=== PATIENT | female | born 1940 | race Caucasian/White ===

== ENCOUNTER 2019-06-24 15:41 | Outpatient (CLI) | payer OTHER, SELFPAY ==
--- NOTE | ~2019-06-24 | XR_ITS ---
EXAMINATION: XR hand BI arthritis min 3V INDICATION: Joint pain and bilateral osteoarthritis TECHNIQUE: Three views of each hand and ball-catcher's view of both hands are obtained. COMPARISON: None available FINDINGS: Right hand: There is advanced osteoarthritis of the interphalangeal joints of the first through third fingers, and the fourth and fifth proximal interphalangeal joints. There is moderate osteoarthritis of the fourth and fifth distal interphalangeal joints. There is moderate osteoarthritis of the first and third metacarpophalangeal joints and mild osteoarthritis of the second, fourth, and fifth metacar pophalangeal joints. Moderate osteoarthritis is noted at the triscaphe joint. There is no fracture. S oft tissues are unremarkable. Left hand: There is advanced osteoarthritis of the interphalangeal joints of the first through fourth fingers and the fifth proximal interphalangeal joint. There is moderate osteoarthritis of the fifth distal interphalangeal joint. There is moderate osteoarthritis of the fifth metacarpal phalangeal isaac nt and mild osteoarthritis of the first through fourth metacarpophalangeal joints. Moderate osteoarth ritis is noted at the triscaphe joint. There is no fracture. The soft tissues are unremarkable. IMPRESSION: 1. Polyarticular osteoarthritis as detailed above. Reviewed, dictated and finalized at location A.
== END 2019-06-24 15:42 | disposition home or self-care (01) ==
PROVIDERS: PCP Internal Medicine; Visit Provider Plastic Surgery
DX: M19.041 Primary osteoarthritis, right hand (principal); M19.042 Primary osteoarthritis, left hand
CPT/HCPCS: 73130

== ENCOUNTER 2019-06-25 14:36 | Emergency (ER) | payer OTHER, SELFPAY ==
--- NOTE | ~2019-06-25 | XR_ITS ---
XR chest 2V DATE: 06/25/2019 15:33 INDICATION: Midsternal chest pain, shortness of breath. History of acid reflux. TECHNIQUE: PA and lateral views COMPARISON: 07/14/2018 PA and lateral chest FINDINGS: Normal heart size. There is aortic calcification and unfolding. No hilar or mediastinal enl argement. No pulmonary infiltrate or consolidation, pleural effusion or pulmonary vascular congestion or pneumo thorax. Included skeletal structures are unremarkable. IMPRESSION: No active cardiopulmonary disease Aortic atherosclerosis Reviewed, dictated and finalized at location B.
--- NOTE | ~2019-06-25 | CT_ITS ---
EXAMINATION: CT abdomen pelvis w con DATE: 06/25/2019 15:58 INDICATION: Epigastric pain TECHNIQUE: Computed tomography (CT) of the abdomen and pelvis was performed with 100 mL Omnipaque-350 intravenous contrast. Automated exposure control and iterative reconstruction technique were employe d. The dose-length product was 597.75 mGy-cm. COMPARISON: None FINDINGS: Mild dependent atelectasis in the lower lungs. Heart size is normal. No pericardial or pleural effusi on. Small sliding-type hiatal hernia. 1.5 cm cyst in the left hepatic lobe. Gallbladder, pancreas, bi lateral adrenal glands and kidneys are normal. 7 mm low-attenuation splenic lesion most likely either hemangioma or splenic cyst. Splenic calcific lesions consistent with old granulomatous disease. Ther e are few scattered colonic diverticula without adjacent inflammatory change to suggest diverticuliti s. No bowel obstruction. The appendix is not visualized. No pericecal inflammatory change to suggest acute appendicitis. Bladder is normal. The uterus is not identified and has likely been surgically re sected. There is calcified atherosclerosis of the aorta and many of the other arteries. No pathologic ally enlarged abdominal or pelvic lymphadenopathy. Moderate thoracolumbar spondylosis. IMPRESSION: 1. No acute intra-abdominal/pelvic process. 2. Small sliding-type hiatal hernia. Reviewed, dictated and finalized at location A.
[2019-06-25 14:52] VITALS: BP 171/92; PULSE 58; RESP 11; TEMP 36.6; O2SAT 99
--- NOTE | 2019-06-25 14:59 | ECG_ITS ---
Measurements Intervals [place] Rate: 58 P: 57 AK: 168 QRS: 26 QRSD: 90 T: 45 QT: 440 QTc: 436 Interpretive Statements SINUS BRADYCARDIA MINIMAL Q WAVES- ANTEROLATERAL LEADS INFERIOR INFARCT, AGE INDETERMINATE ABNORMAL ECG Electronically Signed On 06-25-2019 15:09:09 CDT by Neal Álvarez D.O.
[2019-06-25 15:15] LABS: Basophils Absolute Auto 0.1 K/mm3 (0.0-0.1); Basophils Percent Auto 0.7 % (0.2-1.2); Eosinophils Absolute Auto 0.3 K/mm3 (0-0.3); Eosinophils Percent Auto 3.6 % (0-4.4); Hematocrit 43.4 % (37.0-47.0); Hemoglobin 14.4 g/dL (12.0-15.0); Immature Granulocyte Absolute 0.02 K/mm3 (0.00-0.031); Immature Granulocyte Percent A 0.3 % (0-0.5); Lymphocytes Percent Auto 21.6 % (18.3-44.2); Mean Corpuscular HGB Conc 33.2 g/dl (32-36); Mean Corpuscular Hemoglobin 30.2 pg (26-34); Mean Platelet Volume 10.4 fl (7.4-10.4); Monocytes Absolute Auto 0.8 K/mm3 (0.1-0.6); Monocytes Percent Auto 10.8 % (2.6-8.5); Neutrophils Absolute Auto 4.4 K/mm3 (1.3-6.7); Platelet Count Result 287 k/mm3 (150-375); Red Blood Count 4.77 M/mm3 (4.2-5.4); Red Cell Distribution Width 12.9 % (11.5-14.5); White Blood Count 6.9 K/mm3 (4.5-10.0)
[2019-06-25 15:26] LABS: Blood Urea Nitrogen 17 mg/dL (7-17); Calcium 9.2 mg/dL (8.4-10.2); Carbon Dioxide 30 mmol/L (22-30); Chloride 100 mmol/L (98-107); Estimated CRCL calculation 60 ml/min; Estimated Glomerular Filt Rate > 60; Glucose 87 mg/dL (65-105); Potassium 3.5 mmol/L (3.4-5.0); Sodium 136 mmol/L (137-145)
--- NOTE | 2019-06-25 15:36 | ED.GENADULT ---
HPI - General Adult General Chief complaint: Shortness of Breath/Dyspnea Stated complaint: sob/abnormal ekg/indigestion Time Seen by Provider: 06/25/19 15:14 Source: patient Limitations: no limitations History of Present Illness HPI narrative: Patient presents with chief complaint of epigastric pain and feelings of reflux that began after eating earlier today. Patient reports her symptoms presented after eating. Patient reports a history of GERD. Patient states she went to [facility] where an EKG was performed and she told he has some abnormal findings so she was to go to the emergency department. Patient states she was given a GI cocktail which has helped her reflux overall. Patient states she still has epigastric pain. Patient denies feelings of shortness of breath or wheezing. Patient states she has not had any chest pain at this time either. Patient states her last episodes of pain in her chest that she felt was when she was sleeping and after turning over to lay on the opposite side the discomfort subsided. Patient states that when she had the reflux symptoms and it made her feel that she needed to take a deep breath she thought of the discussions on TV about the Covid virus and presented to be seen. Related Data Home Medications Medication Instructions Recorded Confirmed aspirin 81 mg tablet,delayed 81 mg PO DAILY 02/18/19 release bisoprolol fumarate 5 mg tablet 5 mg PO DAILY 02/18/19 naproxen 500 mg tablet 500 mg PO BID 06/18/19 Allergies Allergy/AdvReac Type Severity Reaction Status Date / Time loratadine [From Claritin] Allergy Unknown Unknown Verified 02/18/19 09:56 Review of Systems Review of Systems: Narrative: CONSTITUTIONAL: Denies fever, chills, or sweats. EYES: Denies visual changes, redness, or discharge. ENT: Reports acid reflux symptoms denies rhinorrhea, congestion, sore throat, or otalgia. CARDIOVASCULAR: Denies chest pain, palpitations, or edema. RESPIRATORY: Denies cough or dyspnea. GASTROINTESTINAL: Reports epigastric pain denies nausea, vomiting, or diarrhea. GENITOURINARY: Denies dysuria or hematuria. SKIN: Denies rash or itching. MUSCULOSKELETAL: Denies back pain, joint pain, or myalgia. NEUROLOGIC: Denies headache, numbness, dizziness, or weakness. PSYCHIATRIC: Denies anxiety or depression. [facility] Past Medical History Medical History (Updated 06/25/19 @ 16:34 by Angelique Joshi PA-C) Patellofemoral arthritis of right knee Surgical History Surgical History History of hysterectomy (~2001) Social History Social History Smoking status: Current every day smoker Smoking end date: 04/08/92 Alcohol intake: current Exam Narrative: Exam Narrative: GENERAL: Well-appearing, well-nourished, and in no acute distress. HEAD: Normocephalic, atraumatic. EYES: PERRLA and EOMI. ENT: Nares clear, no rhinorrhea or epistaxis. Mucous membranes moist. Oropharynx without tonsillar hypertrophy exudate or other lesions. Bilateral TMs pearly bloom nonbulging NECK: Supple. No adenopathy or masses. Range of motion intact. CHEST: Clear to auscultation. No respiratory distress. No tachypnea. No wheezes rales or rhonchi HEART: Regular rate and rhythm. No murmur heard. ABDOMEN: Soft, moderate epigastric tenderness, nondistended, normal active bowel sounds. EXTREMITIES: Normal range of motion. No edema. SKIN: Warm, dry, no rash. NEURO: No focal deficits. Alert and oriented x3. PSYCH: Normal mood and affect. Course Vital Signs Vital signs: Vital Signs Temperature 97.8 F 06/25/19 14:52 Pulse Rate 58 L 06/25/19 14:52 Respiratory Rate 11 L 06/25/19 14:52 Blood Pressure 171/92 H 06/25/19 14:52 Pulse Oximetry 99 06/25/19 14:52 Temperature 97.8 F 06/25/19 14:52 Pulse Rate 60 06/25/19 16:43 Respiratory Rate 16 06/25/19 16:43 Blood Pressure 150/98 H 03
[2019-06-25 15:43] VITALS: PULSE 53; O2SAT 99
--- NOTE | 2019-06-25 15:47 | PC.NURSE ---
Patient to radiology at this time.
[2019-06-25 16:07] LABS: Lipase 181 U/L (23-300)
[2019-06-25 16:20] LABS: Troponin I < 0.012 ng/mL (0.000-0.034)
[2019-06-25 16:43] VITALS: BP 150/98; PULSE 60; RESP 16; O2SAT 97
== END 2019-06-25 16:45 | disposition home or self-care (01) ==
PROVIDERS: Physician Assistant; Emergency Provider Emergency Medicine; PCP Internal Medicine
DX: K44.9 Diaphragmatic hernia without obstruction or gangrene (principal); Z87.891 Personal history of nicotine dependence; R00.1 Bradycardia, unspecified; R94.31 Abnormal electrocardiogram [ECG] [EKG]; I70.0 Atherosclerosis of aorta
CPT/HCPCS: 36415; 71046; 74177; 80048; 83690; 84484; 85025; 93005; 99284; Q9967

== ENCOUNTER 2019-07-28 13:04 | Outpatient (CLI) | payer OTHER, SELFPAY ==
[2019-07-28 13:35] LABS: Basophils Absolute Auto 0.1 K/mm3 (0.0-0.1); Basophils Percent Auto 0.9 % (0.2-1.2); Eosinophils Absolute Auto 0.3 K/mm3 (0-0.3); Eosinophils Percent Auto 4.5 % (0-4.4); Hematocrit 42.9 % (37.0-47.0); Hemoglobin 14.3 g/dL (12.0-15.0); Immature Granulocyte Absolute 0.03 K/mm3 (0.00-0.031); Immature Granulocyte Percent A 0.5 % (0-0.5); Lymphocytes Absolute Auto 1.52 K/mm3 (0.9-3.2); Lymphocytes Percent Auto 23.6 % (18.3-44.2); Mean Corpuscular HGB Conc 33.3 g/dl (32-36); Mean Corpuscular Hemoglobin 30.2 pg (26-34); Mean Corpuscular Volume 90.5 fl (80-100); Mean Platelet Volume 10.5 fl (7.4-10.4); Monocytes Absolute Auto 0.6 K/mm3 (0.1-0.6); Monocytes Percent Auto 9.5 % (2.6-8.5); Neutrophils Absolute Auto 3.9 K/mm3 (1.3-6.7); Platelet Count Result 283 k/mm3 (150-375); Red Blood Count 4.74 M/mm3 (4.2-5.4); Red Cell Distribution Width 12.4 % (11.5-14.5); White Blood Count 6.4 K/mm3 (4.5-10.0)
== END 2019-07-28 13:05 | disposition home or self-care (01) ==
PROVIDERS: PCP Internal Medicine; Visit Provider Internal Medicine
DX: I10 Essential (primary) hypertension (principal); E03.9 Hypothyroidism, unspecified
CPT/HCPCS: 36415; 84443; 85025

== ENCOUNTER 2019-08-11 15:57 | Emergency (ER) | payer OTHER, SELFPAY ==
--- NOTE | ~2019-08-11 | CT_ITS ---
EXAMINATION: CT brain wo con, CT cervical spine wo con EXAM DATE: 08/11/2019 16:35 (accession [id number]), 08/11/2019 16:36 (accession [id number]) INDICATION: Fall, head injury. TECHNIQUE: Spiral CT of the head was performed without contrast. Axial, coronal and sagittal images were reviewed. Spiral CT of the cervical spine was performed without contrast. Axial images were rev iewed. Coronal and sagittal reformatted images were also reviewed. The dose-length product (DLP) fo r this examination was 529.67 (accession [id number]), 246.89 (accession [id number]) mGy-cm. The exposure was tailored according to patient size, and iterative reconstruction (ASIR) was used as additional dose reduction technique. Comparison is made to prior examination from 07/23/2012. FINDINGS: HEAD CT: There is no acute intraparenchymal hemorrhage. No evidence of intraparenchymal brain mass l esion. No evidence of acute infarction. There is moderate periventricular and subcortical hypodensit y, nonspecific but probably related to small vessel ischemic disease. There is mild prominence of t he sulci and ventricles related to cerebral atrophy. There is intracranial carotid arteriosclerosis . There is no mass effect or midline shift. There is no obstructive hydrocephalus suspected. There are no extra-axial collections. There are no acute calvarial fractures. The orbits are unremarkabl e. There is swelling, hematoma in the left periorbital subcutaneous tissues, brow. The visualized si nuses and mastoid air cells are well aerated. CERVICAL CT: There is advanced cervical spondylosis. There is no evidence of acute cervical fracture. The odontoid process is intact. Pre-dens space is normal. Prevertebral soft tissue is normal. Th ere are no soft tissue abnormalities identified. There is no disc space widening or traumatic verteb ral body subluxation suspected. A detailed level by level evaluation of spondylosis can be added as addendum if requested. Some right apical scarring. IMPRESSION: 1. No acute intracranial or cervical findings. 2. Left periorbital brow scalp contusion/hematoma. Reviewed, dictated and finalized at location A. IMPRESSION: 1. No acute intracranial or cervical findings. 2. Left periorbital brow scalp contusion/hematoma.
--- NOTE | ~2019-08-11 | XR_ITS ---
EXAMINATION: XR chest 2V, XR sternum min 2V EXAM DATE: 08/11/2019 16:47 (accession [id number]), 08/11/2019 16:48 (accession [id number]) INDICATION: Initial encounter following injury, with pain of the anterior chest, sternum. Fall. TECHNIQUE: Frontal and lateral projections of the chest obtained and reviewed. Additional lateral, o blique projections of the sternum. Comparison is made to prior examination from 06/25/2019. FINDINGS: Shape of sternum appears unchanged compared to prior study, no evidence of acute fracture l ine. The lungs are clear. There are no pleural effusions. The cardiomediastinal silhouette is withi n normal limits. There is no pneumothorax suspected. The bones and soft tissues are unremarkable. IMPRESSION: No acute cardiopulmonary findings. Reviewed, dictated and finalized at location A. IMPRESSION: No acute cardiopulmonary findings.
--- NOTE | 2019-08-11 16:09 | ED.GENADULT ---
HPI - General Adult General Chief complaint: Fall Stated complaint: FALL Source: patient and EMS Mode of arrival: EMS Limitations: no limitations History of Present Illness HPI narrative: Patient is a 78-year-old female who presents to emergency department for evaluation of injuries related to a ground-level fall that occurred just prior to arrival patient was walking when she tripped falling forward striking the left side of the face where she now has a hematoma of the left brow. Patient also notes some mild discomfort to the bilateral shoulders and mid chest since the fall. Patient denies anticoagulant use. Patient has not had anything for pain presents per EMS in no distress. Patient denies other complaints and is resting comfortably in the room in no distress Related Data Home Medications Medication Instructions Recorded Confirmed aspirin 81 mg tablet,delayed 81 mg PO DAILY 02/18/19 release Allergies Allergy/AdvReac Type Severity Reaction Status Date / Time loratadine [From Claritin] Allergy Unknown Unknown Verified 08/11/19 17:00 Review of Systems Review of Systems: All systems reviewed & are unremarkable except as noted in HPI and below PMFSH Past Medical History Medical History Patellofemoral arthritis of right knee Surgical History Surgical History History of hysterectomy (~2001) Family History Family History Sibling Family history of chronic obstructive pulmonary disease Family history of heart disease in male family member before age 55 Mother Family history of congestive heart failure Father Family history of heart disease in male family member before age 55 Family history of alcoholism, Onset Age: 47 Other Family history of Alzheimer's disease Family history of cardiovascular disease Family history of lung cancer Social History Social History Smoking status: Current every day smoker Smoking end date: 04/08/92 Alcohol intake: current Gender identity (if verbalized by the patient): Female Exam Narrative: Exam Narrative: GENERAL: Well-appearing, well-nourished, and in no acute distress. HEAD: Normocephalic, hematoma over the left brow EYES: PERRLA and EOMI. ENT: Nares clear, no rhinorrhea or epistaxis. Mucous membranes moist. Oropharynx without tonsillar hypertrophy exudate or other lesions. NECK: Supple. No adenopathy or masses. CHEST: Clear to auscultation. No respiratory distress. No wheezes rales or rhonchi. Mild tenderness of the mid sternum and anterior chest HEART: Regular rate and rhythm. No murmur heard. Normal peripheral pulses. ABDOMEN: Soft, nontender, nondistended, EXTREMITIES: Normal range of motion. No edema. No midline cervical thoracic or lumbar tenderness SKIN: Warm, dry, no rash. NEURO: No focal deficits. Alert and oriented x3. Cranial nerves II through XII grossly intact. Neurovascularly intact PSYCH: Normal mood and affect. Course Course Emergency Course: Patient in the room at this time in no distress aware of case findings treatment plan and diagnosis agreeing to follow-up with primary care as directed in the room in no distress Vital Signs Vital signs: Vital Signs Temperature 98.0 F 08/11/19 16:22 Pulse Rate 58 L 08/11/19 16:22 Respiratory Rate 18 08/11/19 16:22 Blood Pressure 143/88 H 08/11/19 16:22 Pulse Oximetry 96 08/11/19 16:22 Temperature 97.6 F 08/11/19 16:54 Pulse Rate 63 08/11/19 16:54 Respiratory Rate 20 08/11/19 16:54 Blood Pressure 155/107 H 08/11/19 16:54 Pulse Oximetry 95 08/11/19 16:54 Medical Decision Making [facility] Narrative Medical decision making narrative: Patient in the room in no distress at this time no high risk changes in the imaging will b
[2019-08-11 16:22] VITALS: BP 143/88; PULSE 58; RESP 18; TEMP 36.7; O2SAT 96
[2019-08-11 16:54] VITALS: BP 155/107; PULSE 63; RESP 20; TEMP 36.4; O2SAT 95
[2019-08-11 18:21] VITALS: BP 131/98; PULSE 62; RESP 20; O2SAT 98
== END 2019-08-11 18:27 | disposition home or self-care (01) ==
PROVIDERS: Emergency Provider Emergency Medicine; PCP Internal Medicine
DX: S00.12XA Contusion of left eyelid and periocular area, initial encounter (principal); S20.219A Contusion of unspecified front wall of thorax, initial encounter; M17.11 Unilateral primary osteoarthritis, right knee; Z79.82 Long term (current) use of aspirin; W01.0XXA Fall on same level from slipping, tripping and stumbling without subsequent striking against object, initial encounter
CPT/HCPCS: 70450; 71046; 71120; 72125; 96365; 99284; J0131

== ENCOUNTER 2019-09-09 13:58 | Outpatient (CLI) | payer OTHER, SELFPAY ==
--- NOTE | 2019-09-09 19:04 | WPDSIXMINUTE ---
Six Minute Walk Six Minute Walk: DOS: 09/09/2019 REQUESTING: Dr. Ayush Hansen REASON FOR TESTING: shortness of breath SIX MINUTE WALK This test was performed per ATS guidelines. The test was performed on room air. The initial saturation was 97% and the heart rate was 64. She walked for 6 minutes without stopping to rest, with the saturation ranging from 91% to 97%. Heart rate ranged from 64 to 82. Distance walked was 900 feet / 274.3 meters. Pulse at the end of the test was 78 and saturation was 94%. IMPRESSION: Mild desaturation without mo hypoxemia. No supplemental oxygen is required with exertion. Distance walked is adequate for age.
--- NOTE | 2019-09-09 19:09 | WPDPFTINT ---
PFT Interpretation PFT Interpretation: DOS: 09/09/2019 REQUESTING: Dr. Ayush Hansen REASON FOR TESTING: shortness of breath PULMONARY FUNCTION TESTS Results are reproducible. Spirometry: FEV1 is 92%, FVC is 94%, both are normal. FEV1% is reduced consistent with airflow obstruction. UCM51-43% is reduced at 40% and increases by 50% with bronchodilator. Lung volumes: TLC is 119%, upper limit of normal. RV is 149%, moderate air trapping. Airway resistance is increased at 508%. Diffusion: DLCO is 74%, mildly decreased. Flow volume loop: Mild scooping of the expiratory limb. IMPRESSION: Mild obstructive ventilatory pattern which is severe in the small airways with a good response to bronchodilator. Moderate air trapping, increased airway resistance and mild diffusion impairment. In the proper clinical setting, this pattern may be compatible with asthma. Sarai Mantilla MD
== END 2019-09-09 13:59 | disposition home or self-care (01) ==
PROVIDERS: PCP Internal Medicine; Visit Provider Internal Medicine
DX: R06.02 Shortness of breath (principal); R94.2 Abnormal results of pulmonary function studies
CPT/HCPCS: 94060; 94618; 94726; 94729

== ENCOUNTER 2019-10-30 09:54 | Outpatient (CLI) | payer OTHER, SELFPAY ==
[2019-10-30 10:15] LABS: Basophils Percent Auto 0.6 % (0.2-1.2); Eosinophils Absolute Auto 0.2 K/mm3 (0-0.3); Eosinophils Percent Auto 3.8 % (0-4.4); Hematocrit 44.7 % (37.0-47.0); Immature Granulocyte Absolute 0.02 K/mm3 (0.00-0.031); Immature Granulocyte Percent A 0.3 % (0-0.5); Lymphocytes Percent Auto 19.2 % (18.3-44.2); Mean Corpuscular HGB Conc 33.6 g/dl (32-36); Mean Corpuscular Hemoglobin 30.1 pg (26-34); Mean Corpuscular Volume 89.6 fl (80-100); Mean Platelet Volume 9.9 fl (7.4-10.4); Monocytes Absolute Auto 0.6 K/mm3 (0.1-0.6); Monocytes Percent Auto 8.8 % (2.6-8.5); Neutrophils Absolute Auto 4.2 K/mm3 (1.3-6.7); Neutrophils Percent Auto 67.3 % (45.5-73.1); Platelet Count Result 286 k/mm3 (150-375); Red Blood Count 4.99 M/mm3 (4.2-5.4); Red Cell Distribution Width 13.4 % (11.5-14.5); White Blood Count 6.3 K/mm3 (4.5-10.0)
[2019-10-30 10:30] LABS: Alanine Aminotransferase 20 U/L (4-35); Albumin Level 3.9 g/dL (3.5-5.1); Alkaline Phosphatase 118 U/L (38-126); Anion Gap 8.5 mmol/L (7-16); Aspartate Amino Transferase 27 U/L (14-36); Bilirubin,Total 0.6 mg/dL (0.2-1.3); Blood Urea Nitrogen 20 mg/dL (7-17); Carbon Dioxide 31 mmol/L (22-30); Chloride 102 mmol/L (98-107); Cholesterol 177 mg/dL (0-200); Estimated Glomerular Filt Rate > 60; Glucose 110 mg/dL (65-105); HDL Direct 58 mg/dL; Potassium 3.5 mmol/L (3.4-5.0); Sodium 138 mmol/L (137-145); Triglycerides 78 mg/dL (<150)
[2019-10-30 10:41] LABS: LDL Cholesterol Direct 103 mg/dL
== END 2019-10-30 09:55 | disposition home or self-care (01) ==
PROVIDERS: PCP Internal Medicine; Visit Provider Internal Medicine
DX: E03.9 Hypothyroidism, unspecified (principal); F33.42 Major depressive disorder, recurrent, in full remission; I10 Essential (primary) hypertension
CPT/HCPCS: 36415; 80053; 80061; 84443; 85025

== ENCOUNTER 2020-01-06 13:09 | Emergency (ER) | payer OTHER, SELFPAY ==
--- NOTE | ~2020-01-06 | XR_ITS ---
XR knee LT 3V DATE: 01/06/2020 14:05 INDICATION: Acute knee pain, greater medially. No recent injury. TECHNIQUE: AP, oblique, lateral and sunrise views COMPARISON: None FINDINGS: There is prominent joint space narrowing and periarticular spurring of the patellofemoral j oint consistent with severe patellofemoral osteoarthritis. There is minimal periarticular spurring of the medial tibial plateau. Medial and lateral compartment joint spaces appear relatively well preserved. No fracture or dislocation, periosteal reaction or bone destruction, radiopaque intra-articular loose body or chondrocalcinosis is evident. IMPRESSION: Osteoarthritis involving particularly severely the patellofemoral compartment and to a mi ld extent medial compartment Reviewed, dictated and finalized at location B. IMPRESSION: Osteoarthritis involving particularly severely the patellofemoral c ompartment and to a mild extent medial compartment
[2020-01-06 13:23] VITALS: BP 136/84; PULSE 66; RESP 16; TEMP 36.1; O2SAT 95
--- NOTE | 2020-01-06 13:29 | ED.GENADULT ---
HPI - General Adult General Chief complaint: Extremity Injury, Lower Stated complaint: KNEE THING Time Seen by Provider: 01/06/20 13:15 Source: patient Mode of arrival: ambulatory Limitations: no limitations History of Present Illness HPI narrative: Patient is a 79-year-old female who presents with left knee pain atraumatic notes history of arthritis notes aching pain through the knee joint worse with weightbearing. Patient is been using [id number] medication with minimal improvement Related Data Home Medications Medication Instructions Recorded Confirmed aspirin 81 mg tablet,delayed 81 mg PO DAILY 02/18/19 release Allergies Allergy/AdvReac Type Severity Reaction Status Date / Time loratadine [From Claritin] Allergy Unknown Unknown Verified 10/27/19 11:11 Review of Systems Review of Systems: All systems reviewed & are unremarkable except as noted in HPI and below PMFSH Social History Social History Smoking status: Current every day smoker Smoking end date: 04/08/92 Alcohol intake: current Gender identity (if verbalized by the patient): Female Exam Narrative: Exam Narrative: GENERAL: Well-appearing, well-nourished, and in no acute distress. HEAD: Normocephalic, atraumatic. EYES: PERRLA and EOMI. ENT: Nares clear, no rhinorrhea or epistaxis. Mucous membranes moist. EXTREMITIES: Normal range of motion. No edema. Tenderness anterior left knee no deformities noted SKIN: Warm, dry, no rash. NEURO: No focal deficits. Alert and oriented x3. Neurovascularly intact PSYCH: Normal mood and affect. Course Course Emergency Course: Patient in the room aware of case findings felt appropriate for outpatient reevaluation by orthopedic surgery placed in Taiwo wrap given medication for pain Vital Signs Vital signs: Vital Signs Temperature 97 F L 01/06/20 13:23 Pulse Rate 66 01/06/20 13:23 Respiratory Rate 16 01/06/20 13:23 Blood Pressure 136/84 01/06/20 13:23 Pulse Oximetry 95 01/06/20 13:23 Temperature 97 F L 01/06/20 13:23 Pulse Rate 66 01/06/20 13:23 Respiratory Rate 16 01/06/20 13:23 Blood Pressure 136/84 01/06/20 13:23 Pulse Oximetry 95 01/06/20 13:23 Medical Decision Making MDM Narrative Medical decision making narrative: Patients injury or pain is consistent with musculoskeletal etiology. No signs of neurological or vascular compromise on exam. Compartments and tisues are soft without signs of compartment syndrome. Pain is felt appropriate for further evaluation on an outpatient basis. Vital Signs Vital Signs: Vital Signs Temperature 97 F L 01/06/20 13:23 Pulse Rate 66 01/06/20 13:23 Respiratory Rate 16 01/06/20 13:23 Blood Pressure 136/84 01/06/20 13:23 Pulse Oximetry 95 01/06/20 13:23 Temperature 97 F L 01/06/20 13:23 Pulse Rate 66 01/06/20 13:23 Respiratory Rate 16 01/06/20 13:23 Blood Pressure 136/84 01/06/20 13:23 Pulse Oximetry 95 01/06/20 13:23 Discharge Plan Discharge Clinical Impression: Acute pain of left knee Patient Disposition: Home, Self-Care Condition: Stable Instructions: Antibiotic Form, Arthralgia (ED) Additional Instructions: Wear Taiwo wrap with limited weight on the affected leg until able to bear weight without pain. Ice and elevate extremity. Pain medication as needed and directed. Follow up with your doctor for further care in the next 7 days. return if symptoms worsen or concerns or any increase in redness swelling pain fever over 100.5 or any loss of feeling or function in the extremity Prescriptions: New acetaminophen [Tylenol Arthritis Pain] 650 mg tablet extended release 650 mg PO Q8H PRN (Reason: pain) Qty: 10 RF: 0 No Action aspirin [Adult Low Dose Aspirin] 81 mg tablet,delayed release (DR/EC) 81 mg PO DAILY RF: 0 albuterol sulfate 90 mcg/actuation HFA aerosol inhaler 1 inhalation INHALATION Q4
[2020-01-06 14:51] VITALS: BP 157/77; PULSE 65; RESP 14; O2SAT 97
[2020-01-06 14:54] VITALS: BP 157/77; PULSE 65; RESP 14; O2SAT 97
== END 2020-01-06 14:50 | disposition home or self-care (01) ==
PROVIDERS: Emergency Provider Emergency Medicine; PCP Internal Medicine
DX: M25.562 Pain in left knee (principal); Z87.891 Personal history of nicotine dependence
CPT/HCPCS: 73562; 99283

== ENCOUNTER 2020-02-29 09:39 | Outpatient (CLI) | payer OTHER, SELFPAY ==
--- NOTE | ~2020-02-29 | MM_ITS ---
EXAMINATION: MM screening suzanna BI w keo HISTORY: Screening mammogram TECHNIQUE: Craniocaudal and mediolateral oblique 3-D tomosynthesis images were obtained and synthetic 2-D images were generated. CAD analysis was submitted and interpreted. COMPARISON: 01/29/2019 bilateral digital screening mammogram BREAST PARENCHYMAL COMPOSITION: The breasts are heterogeneously dense, which may obscure small masses . FINDINGS: There are scattered bilateral benign calcifications. There is no evidence of suspicious mas s, calcification, or architectural distortion to suggest malignancy in either breast. There has been no suspicious interval change. IMPRESSION: 1. No mammographic evidence of malignancy. 2. Recommend routine screening mammography in one year. BI-RADS Category 1: Negative Reviewed, dictated and finalized at location A. Y [employer] RE[employer]ER
== END 2020-02-29 09:40 | disposition home or self-care (01) ==
LOC: ANHIMG 09:43
PROVIDERS: PCP Internal Medicine; Visit Provider Internal Medicine
DX: Z12.31 Encounter for screening mammogram for malignant neoplasm of breast (principal)
CPT/HCPCS: 77063; 77067

== ENCOUNTER 2020-05-08 09:22 | Outpatient (CLI) | payer OTHER, SELFPAY ==
--- NOTE | ~2020-05-08 | XR_ITS ---
XR skull min 4V DATE: 05/08/2020 09:55 INDICATION: Injury. Left skull pain. TECHNIQUE: 4 views COMPARISON: None FINDINGS: No fracture or bone destruction of the cranial vault. The paranasal sinuses and mastoid air cells are normally developed and aerated. Normal sella turcica. No abnormal calcification overlying the cranial vault. IMPRESSION: Negative Reviewed, dictated and finalized at location A. PURSE SEINER IMPRESSION: Negative
== END 2020-05-08 09:23 | disposition home or self-care (01) ==
LOC: ANHIMG 09:34
PROVIDERS: PCP Internal Medicine; Visit Provider Internal Medicine
DX: T14.90XA Injury, unspecified, initial encounter (principal)
CPT/HCPCS: 70260

== ENCOUNTER 2020-06-17 11:01 | Outpatient (CLI) | payer OTHER, SELFPAY ==
[2020-06-17 18:22] LABS: Anion Gap 7 mmol/L (8-16); Blood Urea Nitrogen 34 mg/dL (7-17); Calcium 8.6 mg/dL (8.4-10.2); Carbon Dioxide 29 mmol/L (22-30); Chloride 103 mmol/L (98-107); Estimated Glomerular Filt Rate 34; Glucose 119 mg/dL (65-105); Potassium 3.1 mmol/L (3.4-5.0); Sodium 139 mmol/L (137-145)
== END 2020-06-17 11:02 | disposition home or self-care (01) ==
PROVIDERS: PCP Internal Medicine; Visit Provider Internal Medicine
DX: E03.9 Hypothyroidism, unspecified (principal); F41.9 Anxiety disorder, unspecified
CPT/HCPCS: 36415; 80048; 84443

== ENCOUNTER 2020-06-23 08:49 | Outpatient (CLI) | payer OTHER, SELFPAY ==
[2020-06-23 09:20] LABS: Anion Gap 3 mmol/L (8-16); Blood Urea Nitrogen 20 mg/dL (7-17); Calcium 9.2 mg/dL (8.4-10.2); Carbon Dioxide 36 mmol/L (22-30); Chloride 101 mmol/L (98-107); Estimated Glomerular Filt Rate 44; Glucose 107 mg/dL (65-105); Potassium 3.2 mmol/L (3.4-5.0); Sodium 140 mmol/L (137-145)
== END 2020-06-23 08:50 | disposition home or self-care (01) ==
PROVIDERS: PCP Internal Medicine; Visit Provider Internal Medicine
DX: N17.9 Acute kidney failure, unspecified (principal)
CPT/HCPCS: 36415; 80048

== ENCOUNTER 2020-07-05 09:52 | Outpatient (CLI) | payer OTHER, SELFPAY ==
[2020-07-05 10:28] LABS: Anion Gap 4 mmol/L (8-16); Blood Urea Nitrogen 14 mg/dL (7-17); Calcium 8.5 mg/dL (8.4-10.2); Carbon Dioxide 31 mmol/L (22-30); Chloride 106 mmol/L (98-107); Estimated Glomerular Filt Rate > 60; Glucose 83 mg/dL (65-105); Potassium 3.6 mmol/L (3.4-5.0); Sodium 141 mmol/L (137-145)
== END 2020-07-05 09:53 | disposition home or self-care (01) ==
LOC: ANHLAB 09:54
PROVIDERS: PCP Internal Medicine; Visit Provider Internal Medicine
DX: E03.9 Hypothyroidism, unspecified (principal); I10 Essential (primary) hypertension
CPT/HCPCS: 36415; 80048; 84443

== ENCOUNTER 2020-09-07 11:30 | Outpatient (CLI) | payer OTHER, SELFPAY ==
--- NOTE | ~2020-09-07 | XR_ITS ---
EXAMINATION: XR lumbar spine 6V w bending EXAM DATE: 09/07/2020 12:05 INDICATION: Low back pain. No known recent injury. TECHNIQUE: Lumber spine frontal, lateral, lateral L5-S1 projections for interpretation. Bilateral obl ique projections. Additional lateral flexion and lateral extension projections obtained. There is no prior study for comparison. FINDINGS: There is moderate loss of the L2-3 disc height, mild to moderate from T11 through L2, L3-4 and L5-S1. Mild to moderate lumbar facet arthropathy. Mild abdominal aortic arteriosclerosis. There is 2-3 mm retrolisthesis L2 on L3 on all the lateral projections. The vertebral bodies are otherwise aligned. There are no acute fractures identified. No spondylolysis. Paraspinal soft tissue is unrem arkable. IMPRESSION: 1. Mild to moderate lumbar spondylosis. Reviewed, dictated and finalized at location B.
== END 2020-09-07 11:31 | disposition home or self-care (01) ==
LOC: ANHIMG 11:38
PROVIDERS: PCP Internal Medicine; Visit Provider Nurse Practitioner Adult Health
DX: M47.817 Spondylosis without myelopathy or radiculopathy, lumbosacral region (principal)
CPT/HCPCS: 72114

== ENCOUNTER 2020-09-13 09:04 | Outpatient (CLI) | payer OTHER, SELFPAY | END 2020-09-13 09:05 | disposition home or self-care (01) | LOC: ANHLAB 09:07 | PROVIDERS: PCP Internal Medicine; Visit Provider Internal Medicine | DX: E03.9 Hypothyroidism, unspecified (principal) | CPT/HCPCS: 36415; 84443 ==

== ENCOUNTER 2020-11-13 08:52 | Emergency (ER) | payer OTHER, SELFPAY ==
--- NOTE | ~2020-11-13 | XR_ITS ---
XR knee RT min 4V 11/13/2020 09:17 Indication: Right knee pain laterally Procedure: 4 views right knee Comparison: 01/05/2019 Findings: Large joint effusion. 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 No acute fracture or traumatic malalignment. There is vascular calcification. 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 2: Large joint effusion. Reviewed, dictated and finalized at location A. 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 2: Large joint effusion.
[2020-11-13 08:59] VITALS: BP 143/71; PULSE 70; RESP 20; TEMP 37.3; O2SAT 92
[2020-11-13 09:33] VITALS: BP 156/79; PULSE 67; RESP 20; O2SAT 94
--- NOTE | 2020-11-13 10:56 | ED.EXTPRO ---
HPI - Extremity Problem General Chief complaint: Extremity Problem,Nontraumatic Stated complaint: rt knee pain and swellling Time Seen by Provider: 11/13/20 08:59 History of Present Illness HPI Narrative: Patient is a 79-year-old female who presents ER with right knee pain and swelling. Ongoing since yesterday. It occurred after she tried doing some exercises for her low back. She has history of knee issues and reports she needs a knee replacement but she is not ready to have it replaced. 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 No fevers or chills or sweats. No redness of skin. Patient is able to ambulate with a cane. Related Data Home Medications Medication Instructions Recorded Confirmed aspirin 81 mg tablet,delayed 81 mg PO DAILY 02/18/19 07/05/20 release Allergies Allergy/AdvReac Type Severity Reaction Status Date / Time No Known Allergies Allergy Verified 11/13/20 09:01 Review of Systems Review of Systems: All systems reviewed & are unremarkable except as noted in HPI and below Constitutional: Constitutional: Denies chills, Denies fever(s) and Denies weakness Cardiovascular: Cardiovascular: Denies chest pain, Denies rapid heart rate and Denies radiating jaw, neck or arm pain Respiratory: Respiratory: Denies cough and Denies dyspnea Musculoskeletal: Musculoskeletal: Reports arthralgias, Reports joint swelling and Denies muscle cramps Integumentary/Breasts: Skin/Breast: Denies pruritus, Denies erythema and Denies rash [facility] Past Medical History Medical History (Updated 11/13/20 @ 11:01 by Charles Valero MD) Acquired hypothyroidism Anxiety disorder, unspecified 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 Chronic obstructive pulmonary disease Essential hypertension Overweight (BMI 25.0-29.9) Patellofemoral arthritis of right knee Polycythemia vera Pure hypercholesterolemia Surgical History Surgical History History of hysterectomy (~2001) Family History Family History Sibling Family history of chronic obstructive pulmonary disease Family history of heart disease in male family member before age 55 Mother Family history of congestive heart failure Father Family history of heart disease in male family member before age 55 Family history of alcoholism, Onset Age: 47 Other Family history of Alzheimer's disease Family history of cardiovascular disease Family history of lung cancer Social History Social History (Updated 07/05/20 @ 09:01 by Melanie Wynne MA) Smoking packs per day: 1 Smoking cigarettes per day: 20.0 Years smoked: 25 Smoking pack-years: 25.00 Second hand tobacco smoke exposure: Yes Smoking end date: 04/08/92 Alcohol intake: current Drinks per week: 7 Gender identity (if verbalized by the patient): Female Exam Narrative: GENERAL: Well-appearing, well-nourished, and in no acute distress. HEAD: Normocephalic, atraumatic. CHEST: Clear to auscultation. No respiratory distress. HEART: Regular rate and rhythm. Normal peripheral pulses. EXTREMITIES: Focused exam of the right lower extremity reveals swelling to the suprapatellar region. No point tenderness. Increased pain with attempts to flex at the knee. Neurovascular intact. Varicose veins noted. SKIN: Warm, dry, no rash. NEURO: No focal deficits. Alert and oriented x3. PSYCH: Normal mood and affect. Course Course Emergency Course: Recommend rest, ice, compression, elevation. Oral anti-inflammatories. Recommend follow-up with PCP or orthopedic surgery. Discussed patient likely needs to have her knee replaced. This appears to be a joint effusion related to arthritis and not a septic joint. Vital Signs Vital signs: Vital Signs Temperature 99.2 F 11/13/20 08:59 Pulse Rate
[2020-11-13 11:01] VITALS: BP 191/97; PULSE 70; RESP 20; O2SAT 95
[2020-11-13 11:12] VITALS: BP 190/80; PULSE 70; RESP 20; O2SAT 99
== END 2020-11-13 11:13 | disposition home or self-care (01) ==
PROVIDERS: Emergency Provider Emergency Medicine; PCP Internal Medicine
DX: M17.11 Unilateral primary osteoarthritis, right knee (principal); M25.461 Effusion, right knee; Z87.891 Personal history of nicotine dependence; E03.9 Hypothyroidism, unspecified; F41.9 Anxiety disorder, unspecified; J44.9 Chronic obstructive pulmonary disease, unspecified; I10 Essential (primary) hypertension
CPT/HCPCS: 73564; 99283

== ENCOUNTER 2020-11-28 10:08 | Outpatient (CLI) | payer OTHER, SELFPAY ==
[2020-11-28 10:51] LABS: Basophils Absolute Auto 0.1 K/mm3 (0.0-0.1); Basophils Percent Auto 0.9 % (0.2-1.2); Eosinophils Absolute Auto 0.2 K/mm3 (0-0.3); Eosinophils Percent Auto 3.4 % (0-4.4); Hemoglobin 14.3 g/dL (12.0-15.0); Immature Granulocyte Absolute 0.03 K/mm3 (0.00-0.031); Immature Granulocyte Percent A 0.4 % (0-0.5); Lymphocytes Absolute Auto 1.31 K/mm3 (0.9-3.2); Lymphocytes Percent Auto 19.4 % (18.3-44.2); Mean Corpuscular HGB Conc 33.3 g/dl (32-36); Mean Corpuscular Hemoglobin 30.2 pg (26-34); Mean Corpuscular Volume 90.9 fl (80-100); Mean Platelet Volume 9.8 fl (7.4-10.4); Monocytes Absolute Auto 0.7 K/mm3 (0.1-0.6); Monocytes Percent Auto 10.2 % (2.6-8.5); Neutrophils Absolute Auto 4.4 K/mm3 (1.3-6.7); Neutrophils Percent Auto 65.7 % (45.5-73.1); Platelet Count Result 285 k/mm3 (150-375); Red Blood Count 4.73 M/mm3 (4.2-5.4); Red Cell Distribution Width 12.8 % (11.5-14.5); White Blood Count 6.7 K/mm3 (4.5-10.0)
[2020-11-28 11:08] LABS: Alanine Aminotransferase 19 U/L (4-35); Albumin Level 3.9 g/dL (3.5-5.1); Alkaline Phosphatase 115 U/L (38-126); Anion Gap 4 mmol/L (8-16); Aspartate Amino Transferase 26 U/L (14-36); Bilirubin,Total 0.8 mg/dL (0.2-1.3); Blood Urea Nitrogen 14 mg/dL (7-17); Carbon Dioxide 31 mmol/L (22-30); Chloride 104 mmol/L (98-107); Cholesterol 186 mg/dL (0-200); Estimated Glomerular Filt Rate > 60; Glucose 97 mg/dL (65-110); HDL Direct 58 mg/dL; Potassium 3.5 mmol/L (3.4-5.0); Sodium 139 mmol/L (137-145); Triglycerides 115 mg/dL (<150)
[2020-11-28 11:19] LABS: LDL Cholesterol Direct 88 mg/dL
[2020-11-28 11:34] LABS: Creatinine Urine 118.8 mg/dL
[2020-11-28 11:39] LABS: MALB Creatinine Ratio 7.7 mg/g (0-30); Microalbumin Urine Random 9.1 mg/L (0-16.7)
[2020-11-28 11:50] LABS: Vitamin D 25 Hydroxy 31.7 ng/mL
== END 2020-11-28 10:09 | disposition home or self-care (01) ==
PROVIDERS: PCP Internal Medicine; Visit Provider Internal Medicine
DX: E78.00 Pure hypercholesterolemia, unspecified (principal); I10 Essential (primary) hypertension; F41.9 Anxiety disorder, unspecified; E55.9 Vitamin D deficiency, unspecified; E78.2 Mixed hyperlipidemia
CPT/HCPCS: 36415; 80053; 80061; 82043; 82306; 85025

== ENCOUNTER 2021-03-13 09:04 | Emergency (ER) | payer OTHER, SELFPAY ==
--- NOTE | ~2021-03-13 | CT_ITS ---
EXAMINATION: CT abdomen pelvis w con DATE: 03/13/2021 11:22 INDICATION: Left lower quadrant abdominal pain. TECHNIQUE: Computed tomography (CT) of the abdomen and pelvis was performed with 100 mL Omnipaque 350 intravenous contrast. Automated exposure control and iterative reconstruction technique were employe d. The dose-length product was 508.80 mGy-cm. COMPARISON: CT abdomen and pelvis 06/25/2019 FINDINGS: The visualized portions of the lung bases demonstrate mild atelectasis. No pleural effusion . The heart size is normal. No pericardial effusion. There is a small sliding hiatal hernia. There is a 17 mm cyst in the liver. There are gallstones in the gallbladder, which is normal in size. Calcifi cations in the spleen are consistent with old granulomatous disease. There is a 7 mm low-attenuation mass in the spleen without change, likely a hemangioma or granulomatous disease. The pancreas and adr enal glands are normal. There is cortical thinning of the kidneys. There is diverticulosis of the col on without evidence of diverticulitis. The appendix is not visualized. There are no pathologically en larged lymph nodes. There is no free intraperitoneal fluid. There is severe lumbar spondylosis. IMPRESSION: 1. Small sliding hiatal hernia. 2. Cholelithiasis. No evidence of acute cholecystitis. Reviewed, dictated and finalized at location A. GENCY CARE TECH
[2021-03-13 09:16] VITALS: BP 174/86; PULSE 59; RESP 16; TEMP 36.3; O2SAT 95
--- NOTE | 2021-03-13 09:44 | ED.ABDPAIN ---
HPI - Abdominal Pain General Chief Complaint: Abdominal Pain Stated Complaint: LLQ pain Time Seen by Provider: 03/13/21 09:33 Source: patient Mode of arrival: ambulatory Limitations: no limitations History of Present Illness HPI narrative: This is a 80-year-old female that presents to the emergency department for left lower quadrant abdominal pain present since yesterday. Reports a dull, achy constant pain. Intermittently it is sharp. No associated symptoms. Denies fever, nausea, vomiting, dysuria, hematuria, diarrhea, or hematochezia. Related Data Home Medications Medication Instructions Recorded Confirmed aspirin 81 mg tablet,delayed 81 mg PO DAILY 02/18/19 11/29/20 release Allergies Allergy/AdvReac Type Severity Reaction Status Date / Time No Known Allergies Allergy Verified 03/13/21 10:47 Review of Systems Review of Systems: CONSTITUTIONAL: Denies fever GASTROINTESTINAL: Reports abdominal pain. Denies nausea, vomiting, or diarrhea. GENITOURINARY: Denies dysuria or hematuria. 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 Chronic obstructive pulmonary disease Essential hypertension Overweight (BMI 25.0-29.9) Patellofemoral arthritis of right knee Polycythemia vera Pure hypercholesterolemia Surgical History Surgical History History of hysterectomy (~2001) Family History Family History Sibling Family history of chronic obstructive pulmonary disease Family history of heart disease in male family member before age 55 Mother Family history of congestive heart failure Father Family history of heart disease in male family member before age 55 Family history of alcoholism, Onset Age: 47 Other Family history of Alzheimer's disease Family history of cardiovascular disease Family history of lung cancer Social History Social History Smoking packs per day: 1 Smoking cigarettes per day: 20.0 Years smoked: 25 Smoking pack-years: 25.00 Second hand tobacco smoke exposure: Yes Smoking end date: 04/08/92 Alcohol intake: current Drinks per week: 7 Gender identity (if verbalized by the patient): Female Exam Narrative: GENERAL: Well-appearing, well-nourished, and in no acute distress. HEAD: Normocephalic, atraumatic. EYES: EOMI. CHEST: Clear to auscultation. No respiratory distress. No wheezes rales or rhonchi HEART: Regular rate and rhythm. No murmur heard. Normal peripheral pulses. ABDOMEN: Soft, nondistended, normal active bowel sounds. Mild tenderness to palpation throughout the left side of the abdomen, without guarding. No CVA tenderness EXTREMITIES: Normal range of motion. No edema. SKIN: Warm, dry, no rash. NEURO: No focal deficits. Alert and oriented x3. PSYCH: Normal mood and affect Course Vital Signs Vital signs: Vital Signs Temperature 97.3 F L 03/13/21 09:16 Pulse Rate 59 L 03/13/21 09:16 Respiratory Rate 16 03/13/21 09:16 Blood Pressure 174/86 H 03/13/21 09:16 Pulse Oximetry 95 03/13/21 09:16 Temperature 97.3 F L 03/13/21 09:16 Pulse Rate 59 L 03/13/21 09:16 Respiratory Rate 16 03/13/21 09:16 Blood Pressure 174/86 H 03/13/21 09:16 Pulse Oximetry 95 03/13/21 09:16 MDM - Abdominal Pain MDM Narrative Medical decision making narrative: Patient presents to the ER for LLQ abdominal pain present over the last couple of days. Patient is afebrile and nontoxic appearing. CBC without concerning findings. Metabolic panel with mild hypokalemia. Patient given a dose of potassium in the ED. Lipase is normal. UA without evidence of i
[2021-03-13 10:50] LABS: Alanine Aminotransferase 20 U/L (4-35); Albumin Level 4.3 g/dL (3.5-5.1); Alkaline Phosphatase 117 U/L (38-126); Anion Gap 8 mmol/L (8-16); Aspartate Amino Transferase 25 U/L (14-36); Bilirubin,Total 0.8 mg/dL (0.2-1.3); Blood Urea Nitrogen 11 mg/dL (7-17); Calcium 9.2 mg/dL (8.4-10.2); Carbon Dioxide 28 mmol/L (22-30); Chloride 101 mmol/L (98-107); Estimated CRCL calculation 48 ml/min; Estimated Glomerular Filt Rate > 60; Glucose 94 mg/dL (65-110); Lipase 125 U/L (23-300); Potassium 3.2 mmol/L (3.4-5.0); Sodium 137 mmol/L (137-145)
[2021-03-13 10:56] LABS: Basophils Absolute Auto 0.1 K/mm3 (0.0-0.1); Basophils Percent Auto 0.8 % (0.2-1.2); Eosinophils Absolute Auto 0.2 K/mm3 (0-0.3); Eosinophils Percent Auto 2.3 % (0-4.4); Hematocrit 44.4 % (37.0-47.0); Immature Granulocyte Absolute 0.03 K/mm3 (0.00-0.031); Immature Granulocyte Percent A 0.4 % (0-0.5); Lymphocytes Absolute Auto 1.32 K/mm3 (0.9-3.2); Lymphocytes Percent Auto 16.6 % (18.3-44.2); Mean Corpuscular HGB Conc 33.8 g/dl (32-36); Mean Corpuscular Hemoglobin 31.2 pg (26-34); Mean Corpuscular Volume 92.3 fl (80-100); Monocytes Absolute Auto 0.7 K/mm3 (0.1-0.6); Monocytes Percent Auto 8.2 % (2.6-8.5); Neutrophils Absolute Auto 5.7 K/mm3 (1.3-6.7); Neutrophils Percent Auto 71.7 % (45.5-73.1); Platelet Count Result 297 k/mm3 (150-375); Red Blood Count 4.81 M/mm3 (4.2-5.4); Red Cell Distribution Width 12.8 % (11.5-14.5); White Blood Count 7.9 K/mm3 (4.5-10.0)
[2021-03-13 11:18] LABS: Add Urine Microscopic? YES; Appearance Urine Clear (Clear); Bilirubin Urine Negative (Negative); Blood Urine 1+ (Negative); Color Urine Yellow (Yellow); Glucose Urine UA Negative (Negative); Ketones Urine Negative (Negative); Leukocyte Esterase Ur Negative LEU/UL (Negative); Mucus Urine Rare /lpf; Nitrate Urine Negative (Negative); Protein Urine Negative (Negative); RBC Urine 0-2 /hpf (0-2); Specific Grav Ur 1.016 (1.001-1.035); Squamous Epithelial Cell Urine Occasional /hpf (Few); Urobilinogen Urine Negative mg/dL (<2.0); WBC Urine 0-3 /hpf
[2021-03-13] MEDS: POTASSIUM CHLORIDE 20 MEQ TABLET 40 MEQ PO (11:50)
== END 2021-03-13 12:04 | disposition home or self-care (01) ==
PROVIDERS: Physician Assistant; Emergency Provider Emergency Medicine; PCP Internal Medicine
DX: R10.32 Left lower quadrant pain (principal); E87.6 Hypokalemia; J44.9 Chronic obstructive pulmonary disease, unspecified; I10 Essential (primary) hypertension; K22.70 Barrett's esophagus without dysplasia; E03.9 Hypothyroidism, unspecified; M17.11 Unilateral primary osteoarthritis, right knee; E78.00 Pure hypercholesterolemia, unspecified; D45 Polycythemia vera; Z87.891 Personal history of nicotine dependence; K80.20 Calculus of gallbladder without cholecystitis without obstruction; K44.9 Diaphragmatic hernia without obstruction or gangrene
CPT/HCPCS: 36415; 74177; 80053; 81001; 83690; 85025; 99284; A9270; Q9967

== ENCOUNTER 2021-03-25 08:15 | Outpatient (CLI) | payer OTHER, SELFPAY ==
--- NOTE | ~2021-03-25 | MM_ITS ---
EXAMINATION: MM screening [facility] BI w keo HISTORY: Screening mammogram TECHNIQUE: Craniocaudal and mediolateral oblique 3-D tomosynthesis images were obtained and synthetic 2-D images were generated. CAD analysis was submitted and interpreted. COMPARISON: 02/29/2020, 01/29/2019 BREAST PARENCHYMAL COMPOSITION: The breasts are heterogeneously dense, which may obscure small masses . FINDINGS: Scattered benign-appearing calcifications are present. There is no evidence of suspicious m ass, calcification, or architectural distortion to suggest malignancy in either breast. There has bee n no suspicious interval change. IMPRESSION: 1. No mammographic evidence of malignancy. 2. Recommend routine screening mammography in one year. BI-RADS Category 2: Benign finding(s). Reviewed, dictated and finalized at location A. ADER
== END 2021-03-25 08:16 | disposition home or self-care (01) ==
LOC: ANHIMG 08:18
PROVIDERS: PCP Internal Medicine; Visit Provider Internal Medicine
DX: Z12.31 Encounter for screening mammogram for malignant neoplasm of breast (principal)
CPT/HCPCS: 77063; 77067

== ENCOUNTER 2021-06-07 12:07 | Outpatient (CLI) | payer OTHER, SELFPAY ==
--- NOTE | ~2021-06-07 | XR_ITS ---
XR hip BI 2V w AP pelvis 06/07/2021 12:32 Indication: Unilateral primary osteoarthritis. Procedure: AP pelvis and 2 views each hip Comparison: No prior studies for comparison. Findings: Bowel gas pattern is nonobstructive. Pelvic rings are intact. No fracture, subluxation or d islocation. Sacral foramen are symmetric. Impression: 1: No significant bone or joint abnormality. Reviewed, dictated and finalized at location A. AT SYSTEMS OFFICER Impression: 1: No significant bone or joint abnormality.
--- NOTE | 2021-06-07 12:38 | ECG_ITS ---
Measurements Intervals [place] Rate: 69 P: 67 [place]: 168 QRS: 52 QRSD: 86 T: 58 QT: 405 QTc: 434 Interpretive Statements SINUS RHYTHM INFERIOR INFARCTION, AGE INDETERMINATE CANNOT RULE OUT ANTEROLATERAL INFARCTION, AGE UNDETERMINED ABNORMAL EKG Electronically Signed On 06-07-2021 14:11:25 WEIGHING STATION OPERATOR by Ramin Wiseman M.D.
== END 2021-06-07 12:08 | disposition home or self-care (01) ==
PROVIDERS: PCP Internal Medicine; Visit Provider Internal Medicine
DX: M17.11 Unilateral primary osteoarthritis, right knee (principal); I10 Essential (primary) hypertension; R94.31 Abnormal electrocardiogram [ECG] [EKG]
CPT/HCPCS: 73521; 93005

== ENCOUNTER 2021-07-27 08:23 | Outpatient (CLI) | payer OTHER, SELFPAY ==
--- NOTE | ~2021-07-27 | NM_ITS ---
EXAMINATION: NM roberto stress w perfusion DATE: 07/27/2021 11:04 INDICATION: Atypical chest pain. Abnormal EKG. TECHNIQUE: Rest images were obtained following intravenous administration of 9.2 mCi Tc99m tetrofosmi n (Myoview). The patient was infused intravenously with Lexiscan (Regadenoson). Then, 30.3 mCi Tc99m tetrofosmin (Myoview) was administered intravenously, and stress images were obtained. Data was recon structed into short axis and horizontal and vertical long axis SPECT images. Gated SPECT images were also obtained. COMPARISON: None. FINDINGS: There is no definite reversible or fixed perfusion abnormality to suggest ischemia or infar ction. There is normal left ventricular chamber size, wall motion and ejection fraction. Left ventr icular ejection fraction measures >70%. IMPRESSION: 1. Normal myocardial perfusion at rest and during stress. 2. Left ventricular ejection fraction measuring >70%. Reviewed, dictated and finalized at location A.
--- NOTE | 2021-07-27 09:12 | EST_ITS ---
Patient Info Name: Sarai Padron Age: 80 years : 1940 Gender: Female Ht: 60 in Wt: 140 lbs BSA: 1.66 m2 Exam Date: 07/27/2021 10:05 AM Exam Location: [facility] Stress Patient Status: Outpatient Admit Date: 07/27/2021 Staff Ordering Physician: Ayush Hansen MD Attending Provider: Ayush Hansen MD Exercise Technologist: Angelica Mitchell CT Exercise Physician: Neal Álvarez DO Exam Type: CA stress roberto w NM Study Info Indications R94.31 - Abnormal electrocardiogram ECG EKG A regadenoson stress test was performed. Summary 1. 1. Negative lexiscan stress test for ischemic ST changes by ECG criteria. 2. 2. Baseline hypertension. 3. 3. Nuclear scan to follow and will be reported separately. Please correlate with it. 4. 4. Patient informed of the above results. Protocol: Lexiscan Stress ECG Details Stage: REST Duration (min): 2 min : 40 sec HR (bpm): 58 SBP (mmHg): 163 DBP (mmHg): 95 Stage: REST Duration (min): 11 min : 9 sec HR (bpm): 60 SBP (mmHg): 163 DBP (mmHg): 95 Stage: STAGE 1 Duration (min): 1 min : 0 sec HR (bpm): 66 SBP (mmHg): 166 DBP (mmHg): 102 Stage: RECOVERY Duration (min): 1 min : 0 sec HR (bpm): 83 SBP (mmHg): 166 DBP (mmHg): 102 Stage: RECOVERY Duration (min): 2 min : 0 sec HR (bpm): 81 SBP (mmHg): 166 DBP (mmHg): 102 Stage: RECOVERY Duration (min): 3 min : 0 sec HR (bpm): 80 SBP (mmHg): 166 DBP (mmHg): 102 Stage: RECOVERY Duration (min): 3 min : 15 sec HR (bpm): 77 SBP (mmHg): 177 DBP (mmHg): 97 Rest HR: 60 bpm Peak HR: 83 bpm Rest Sys BP: 163 mmHg Peak Sys BP: 177 mmHg Max Pred HR: 142 bpm % Max Pred HR: 58 % Target HR: 121 bpm Max RPP: 14,691 bpm*mmHg Termination Reason: Completed protocol Cardiac Symptoms: Shortness of breath Total Time: 1 min : 0 sec Rest Mina BP: 95 mmHg Peak Mina BP: 97 mmHg Total Dose: 0.4 mg Resting ECG Sinus rhythm, minimal Q waves in inferior leads. Stress ECG No ST changes. Arrhythmias None. Report Signatures
== END 2021-07-27 08:24 | disposition home or self-care (01) ==
PROVIDERS: PCP Internal Medicine; Visit Provider Internal Medicine
DX: R94.31 Abnormal electrocardiogram [ECG] [EKG] (principal); R07.89 Other chest pain
CPT/HCPCS: 78452; 93017; A9502; J2785

== ENCOUNTER 2021-07-31 09:22 | Emergency (ER) | payer OTHER, SELFPAY ==
--- NOTE | ~2021-07-31 | XR_ITS ---
EXAMINATION: XR knee RT 3V DATE: 07/31/2021 09:59 INDICATION: Right knee pain and swelling 3 days post fall TECHNIQUE: Anteroposterior, oblique and crosstable lateral views of the right knee were obtained COMPARISON: None. FINDINGS: Alignment is normal. No fracture. Joint space narrowing at the patellofemoral compartment with irreg ularity to the patellar and trochlear articular cortices suggesting overlying high-grade chondromalac ia. Small corticated loose osteochondral body along the cephalad margin of the patella. Tiny marginal osteophytes along the medial and lateral tibial plateau with relatively preserved joint spaces in th e medial and lateral compartment on nonweightbearing imaging. Moderate-sized right knee joint effusio n without layering lipohemarthrosis. Small amount of atherosclerotic calcification at the popliteal a rtery. IMPRESSION: 1. Moderate-sized right knee joint effusion. No evident acute osseous abnormality. 2. Moderate to severe patellofemoral osteoarthritis. Reviewed, dictated and finalized at location B. IMPRESSION: 1. Moderate-sized right knee joint effusion. No evident acute osseous abnormali ty. 2. Moderate to severe patellofemoral osteoarthritis.
[2021-07-31 09:20] VITALS: BP 172/87; PULSE 64; RESP 16; TEMP 36.3; O2SAT 95
--- NOTE | 2021-07-31 09:23 | ED.LOWEXIN ---
HPI - Extremity Injury (Lower) General Chief Complaint: Extremity Injury, Lower Stated Complaint: Fall Time Seen by Provider: 07/31/21 09:22 History of Present Illness HPI Narrative: 80-year-old female here for evaluation of right knee pain and swelling for the past 2 days. Patient states she fell 3 days ago, was seen in urgent care and diagnosed with an ankle fracture. She has been wearing a post op shoe for this, and was going to call to set up follow-up Ortho today, but her knee pain was severe and she wanted to come to the ED. States the pain is present in the anterior and posterior knee and is described as a soreness . She has been walking with some pain. She tried lidocaine patches, tramadol and Tylenol at home without relief. She does have a history of arthritis in her knee, and Dr. Interiano does cortisone injections in her knee regularly. Reportedly they are planning for knee replacement in the future. She denies any calf pain, fevers, loss of skin integrity of her knee, redness, repeated falls, head injury in fall, loss of consciousness. Related Data Allergies Allergy/AdvReac Type Severity Reaction Status Date / Time No Known Allergies Allergy Verified 07/31/21 09:29 Review of Systems Review of Systems: Gen.: Denies fevers or chills Eyes: Denies eye pain or visual change ENT: Denies congestion Respiratory: Denies shortness of breath or cough CV: Denies chest pain or palpitations GI: Denies abdominal pain nausea, emesis or diarrhea denies burning, urgency, frequency or hematuria Musculoskeletal: Reports right knee and ankle pain. Denies back pain or muscle pain Neuro: Denies numbness, tingling, weakness or focal weakness Skin: Denies rash Except as documented, all other systems reviewed and negative All systems reviewed & are unremarkable except as noted in HPI and below Exam Narrative: Gen: Alert, oriented, no acute distress Eyes: EOMI, no icterus Pulm: Respirations even and unlabored, symmetric thorax expansion, no audible stridor or visible cyanosis CV: Regular rate GI: No distension, no voluntary/involuntary guarding Neuro: AOx4, follows commands MSK: Right ankle with obvious swelling over lateral aspect. Tender to palpation over lateral aspect of ankle. Right knee with swelling over superior patella with palpable ballottement. She has full range of motion in knee with pain, particularly with knee flexion. Tender to palpation over patella. Negative anterior and posterior drawer test. No calf tenderness. Skin: Patient has bruising over right lateral and medial ankle. No break in skin over right knee. No redness of her right knee. Psych: Normal mood/affect, insight/judgement good, adequate fund of knowledge, recent/remote memory intact Course Vital Signs Vital signs: Vital Signs Temperature 97.4 F L 07/31/21 09:20 Pulse Rate 64 07/31/21 09:20 Respiratory Rate 16 07/31/21 09:20 Blood Pressure 172/87 H 07/31/21 09:20 Pulse Oximetry 95 07/31/21 09:20 Temperature 97.4 F L 07/31/21 09:20 Pulse Rate 86 07/31/21 13:32 Respiratory Rate 17 07/31/21 13:32 Blood Pressure 165/84 H 07/31/21 13:32 Pulse Oximetry 99 07/31/21 13:32 MDM - Extremity Injury (Lower) MDM Narrative Medical decision making narrative: 80-year-old female here with right knee pain after a fall 3 days ago, in which she also sustained a right ankle fracture. Right knee with obvious swelling and ballottement. Feel this is likely knee effusion given history of trauma, palpable swelling, and history of knee arthritis. Considered DVT but feel unlikely given no calf pain and she has been walking. Do not feel this is a septic joint/bursitis, as she had known injury, no systemic symptoms, redness or warmth. Patient ambulatory, pain somewhat improved after ibuprofen and repeat lidocaine patch. Advised to follow-up with [facility] for evaluation of effusion, and emphasized importance of follow-up with original orthopedic
[2021-07-31] MEDS: IBUPROFEN 600 MG TABLET PO (10:13)
[2021-07-31] MEDS: LIDOCAINE 5% PATCH 1 PATCH TRANSDERM (12:11)
[2021-07-31] MEDS: traMADol HCL (*CRX) 50 MG TABLET PO (12:12)
[2021-07-31 13:32] VITALS: BP 165/84; PULSE 86; RESP 17; O2SAT 99
== END 2021-07-31 13:33 | disposition home or self-care (01) ==
PROVIDERS: Emergency Provider Emergency Medicine; PCP Internal Medicine
DX: M17.11 Unilateral primary osteoarthritis, right knee (principal)
CPT/HCPCS: 73562; 99283; A9270

== ENCOUNTER 2021-09-11 08:46 | Outpatient (CLI) | payer OTHER, SELFPAY ==
--- NOTE | 2021-09-11 08:55 | ECHO_ITS ---
Patient Info Name: Sarai Padron Age: 80 years : 1940 Gender: Female Ht: 60 in Wt: 140 lbs BSA: 1.66 m2 HR: 60 bpm BP: 170 / 103 mmHg Technical Quality: Good Exam Date: 09/11/2021 9:47 AM Exam Location: [facility] Pulmonary Patient Status: Outpatient Admit Date: 09/11/2021 Staff Ordering Physician: Neal Álvarez DO Slat Grader: Bridgett Turk RDCS Attending Provider: Neal Álvarez DO Referring Physician: Henri SAEED; Exam Type: CA echo doppler color flow Study Info Indications R07.89 - Other chest pain Complete two-dimensional, color flow and Doppler transthoracic echocardiogram is performed. Summary 1. Complete two-dimensional, color flow and Doppler transthoracic echocardiogram is performed. 2. Left ventricular chamber dimension is normal. 3. Ventricular septum is sigmoid shaped. No LVOT obstruction. 4. Left ventricular systolic function is normal, estimated at 60-65%. 5. The left ventricular diastolic function is grade I diastolic dysfunction. 6. E/e' 12 is mildly elevated. 7. Left atrial chamber dimension is mildly enlarged. 8. There is mild aortic valve sclerosis. 9. The mitral valve has mildly calcified annulus. 10. There is trace mitral valve regurgitation. 11. No pulmonary hypertension, estimated pulmonary arterial systolic pressure is 33 mmHg. Left Ventricle E/e' 12 is mildly elevated. Ventricular septum is sigmoid shaped. No LVOT obstruction. Left ventricular chamber dimension is normal. Left ventricular systolic function is normal, estimated at 60-65%. The left ventricular diastolic function is grade I diastolic dysfunction. Right Ventricle Right ventricular chamber dimension is normal. Right ventricular systolic function is normal. Left Atria Left atrial chamber dimension is mildly enlarged. Right Atria Right atrial chamber dimension is normal. Aortic Valve The aortic valve is trileaflet. There is mild aortic valve sclerosis. There is no aortic valve stenosis. There is no aortic valve regurgitation. Pulmonic Valve There is no pulmonic regurgitation. Mitral Valve The mitral valve has mildly calcified annulus. There is no mitral valve stenosis. There is trace mitral valve regurgitation. Tricuspid Valve There is no tricuspid valve regurgitation. No pulmonary hypertension, estimated pulmonary arterial systolic pressure is 33 mmHg. Pericardium/Pleural There is no pericardial effusion. Inferior Vena Cava Normal inferior vena cava with >50% collapse upon inspiration consistent with normal right atrial pressure, 5 mmHg. Aorta The aortic root size at the sinus of Valsalva is normal. Left Ventricular Outflow Tract Name Value Normal LVOT 2D LVOT Diameter 2.0 cm LVOT Doppler LVOT Peak Gradient 6 mmHg LVOT Mean Gradient 4 mmHg LVOT VTI 29 cm LVOT VTI/AV VTI Ratio 1.0 LVOT Stroke Volume 89 ml LVOT CO 17.8 l/min LVOT CI 10.7 l/min
== END 2021-09-11 08:47 | disposition home or self-care (01) ==
PROVIDERS: PCP Internal Medicine; Visit Provider Internal Medicine Cardiovascular Disease
DX: R07.89 Other chest pain (principal); I35.8 Other nonrheumatic aortic valve disorders
CPT/HCPCS: 93306

== ENCOUNTER 2021-10-12 09:37 | Outpatient (CLI) | payer OTHER, SELFPAY ==
[2021-10-12 10:07] LABS: Basophils Percent Auto 0.6 % (0.2-1.2); Eosinophils Absolute Auto 0.2 K/mm3 (0-0.3); Eosinophils Percent Auto 3.4 % (0-4.4); Hematocrit 42.4 % (37.0-47.0); Hemoglobin 14.4 g/dL (12.0-15.0); Immature Granulocyte Absolute 0.03 K/mm3 (0.00-0.031); Immature Granulocyte Percent A 0.5 % (0-0.5); Lymphocytes Absolute Auto 1.21 K/mm3 (0.9-3.2); Lymphocytes Percent Auto 18.9 % (18.3-44.2); Mean Corpuscular Volume 91.4 fl (80-100); Monocytes Absolute Auto 0.6 K/mm3 (0.1-0.6); Neutrophils Absolute Auto 4.3 K/mm3 (1.3-6.7); Neutrophils Percent Auto 66.6 % (45.5-73.1); Platelet Count Result 286 k/mm3 (150-375); Red Blood Count 4.64 M/mm3 (4.2-5.4); Red Cell Distribution Width 13.3 % (11.5-14.5); White Blood Count 6.4 K/mm3 (4.5-10.0)
[2021-10-12 10:18] LABS: Alanine Aminotransferase 20 U/L (6-35); Albumin Level 3.8 g/dL (3.5-5.1); Alkaline Phosphatase 109 U/L (38-126); Anion Gap 2 mmol/L (8-16); Aspartate Amino Transferase 27 U/L (14-36); Bilirubin,Total 0.6 mg/dL (0.2-1.3); Blood Urea Nitrogen 16 mg/dL (7-17); Calcium 8.7 mg/dL (8.4-10.2); Carbon Dioxide 30 mmol/L (22-30); Chloride 106 mmol/L (98-107); Cholesterol 191 mg/dL (0-200); Estimated Glomerular Filt Rate > 60; Glucose 95 mg/dL (65-110); HDL Direct 54 mg/dL; Potassium 3.4 mmol/L (3.4-5.0); Sodium 138 mmol/L (137-145); Triglycerides 77 mg/dL (<150)
[2021-10-12 10:29] LABS: LDL Cholesterol Direct 94 mg/dL
[2021-10-12 10:45] LABS: Vitamin D 25 Hydroxy 34.6 ng/mL
[2021-10-12 11:30] LABS: Folic Acid > 20.0 ng/mL (2.76->20)
== END 2021-10-12 09:38 | disposition home or self-care (01) ==
LOC: ANHLAB 09:39
PROVIDERS: PCP Internal Medicine; Visit Provider Internal Medicine
DX: D45 Polycythemia vera (principal); E03.9 Hypothyroidism, unspecified; E55.9 Vitamin D deficiency, unspecified; E78.00 Pure hypercholesterolemia, unspecified; F33.42 Major depressive disorder, recurrent, in full remission; F41.9 Anxiety disorder, unspecified; I10 Essential (primary) hypertension; J44.9 Chronic obstructive pulmonary disease, unspecified; M81.0 Age-related osteoporosis without current pathological fracture; E78.2 Mixed hyperlipidemia
CPT/HCPCS: 36415; 80053; 80061; 82306; 82607; 82746; 84443; 85025

== ENCOUNTER → 2021-10-27 10:05 | Outpatient (CLI) | payer OTHER, SELFPAY ==
--- NOTE | ~2021-10-27 | US_ITS ---
US abdomen complete EXAMINATION: US Abdomen Complete INDICATION: Abdomen pain PROCEDURE: Realtime High Resolution abdomen ultrasound. COMPARISON: No prior studies for comparison FINDINGS: There are echogenic foci in the gallbladder without significant shadowing which may represe nt polyps or sludge. Common bile duct measures 5 mm. Liver echotexture within normal limits without focal mass. There is a liver cyst measuring 1.7 cm. Pa ncreas within normal limits. Pancreatic tail is obscured by bowel gas. There is a 8 mm hyperechoic l esion of the spleen, likely benign. Renal echotexture is within normal limits bilaterally without hyd ronephrosis, contour deforming mass or renal stone. Right kidney measures 9.1 cm. Left kidney measure s 9.9 cm. Visualized aspects of the aorta and IVC are within normal limits. Portal vein is patent. No sonograph ic Gould's sign indicated by the technologist. IMPRESSION: 1: Echogenic foci in the gallbladder lumen may represent gallbladder polyps or sludge. 2: Hyperechoic 8 mm lesion of the spleen, most likely benign hemangioma or calcification. Reviewed, dictated and finalized at location A. IMPRESSION: 1: Echogenic foci in the gallbladder lumen may represent gallbladder polyps or sludge. 2: Hyperechoic 8 mm lesion of the spleen, most likely benign hemangioma or calc ification.
== END ==
PROVIDERS: PCP Internal Medicine; Visit Provider Nurse Practitioner
DX: R10.811 Right upper quadrant abdominal tenderness (principal); R10.9 Unspecified abdominal pain; D73.89 Other diseases of spleen; R93.3 Abnormal findings on diagnostic imaging of other parts of digestive tract
CPT/HCPCS: 76700

== ENCOUNTER 2021-11-13 12:09 | Outpatient (CLI) | payer OTHER, SELFPAY ==
--- NOTE | ~2021-11-13 | NM_ITS ---
EXAMINATION: NM hepatobiliary w pharm DATE: 11/13/2021 15:14 INDICATION: Epigastric abdominal pain. COMPARISON: Ultrasound 10/27/2021 TECHNIQUE: 4.5 mCi Tc-99m mebrofenin (Choletec) was administered intravenously. Scintigraphic images of the abdomen were obtained for one hour. Then, 1.3 mcg sincalide (Kinevac) IV was administered, an d imaging was continued for 30 minutes. FINDINGS: There is normal clearance of radiotracer from the blood pool. There is homogeneous tracer u ptake by the liver. Activity progresses to the bowel and gallbladder. Gallbladder ejection fraction (GBEF) was 86%. Note that most patients with gallbladder dysfunction have GBEF < 35%, which overlaps with the broad normal range of 10-90%. IMPRESSION: 1. Normal hepatobiliary scintigraphy. Reviewed, dictated and finalized at location A.
== END 2021-11-13 12:10 | disposition home or self-care (01) ==
PROVIDERS: PCP Internal Medicine; Visit Provider Surgery
DX: R93.2 Abnormal findings on diagnostic imaging of liver and biliary tract (principal); R10.13 Epigastric pain
CPT/HCPCS: 78227; A9537; J2805

== ENCOUNTER 2021-12-19 12:06 | Outpatient (CLI) | payer OTHER, SELFPAY ==
[2021-12-19 13:05] LABS: Hematocrit 43.3 % (37.0-47.0); Hemoglobin 14.4 g/dL (12.0-15.0); Mean Corpuscular HGB Conc 33.3 g/dl (32-36); Mean Corpuscular Hemoglobin 30.6 pg (26-34); Mean Corpuscular Volume 91.9 fl (80-100); Mean Platelet Volume 10.1 fl (7.4-10.4); Platelet Count Result 279 k/mm3 (150-375); Red Blood Count 4.71 M/mm3 (4.2-5.4); Red Cell Distribution Width 12.8 % (11.5-14.5); White Blood Count 8.2 K/mm3 (4.5-10.0)
[2021-12-19 13:10] LABS: CRP < 0.5 mg/dL (<1.0)
[2021-12-19 13:55] LABS: Erythrocyte Sedimentation Rate 19 mm/hr (0-20)
== END 2021-12-19 12:07 | disposition home or self-care (01) ==
LOC: ANHLAB 12:08
PROVIDERS: PCP Internal Medicine; Visit Provider Internal Medicine Hematology & Oncology
DX: D72.821 Monocytosis (symptomatic) (principal)
CPT/HCPCS: 36415; 85027; 85652; 86140; 88184

== ENCOUNTER 2022-01-10 17:44 | Emergency (ER) | payer OTHER, SELFPAY ==
--- NOTE | ~2022-01-10 | XR_ITS ---
EXAMINATION: [id number] Exam Date/Time: 01/10/2022 18:40 CDT HISTORY: FALL, UPPER RT CHEST PAIN Comparison: X-ray chest 08/11/2019. RESULT: Lines, tubes, and devices: None. Lungs and pleura: Senescent changes, otherwise clear. Cardiothymic silhouette: Stable mild cardiomegaly and arch calcification. Other: No acute osseous or upper abdominal finding. Limited oblique view. IMPRESSION: Several lower ribs are excluded from the [id number] in the oblique view. No acute cardiopulmonary process. Reviewed, dictated and finalized at location K. IMPRESSION: Several lower ribs are excluded from the [id number] in the oblique view. No acute cardiopulmonary process.
[2022-01-10 17:56] VITALS: BP 155/89; PULSE 61; RESP 16; TEMP 36.3; O2SAT 96
--- NOTE | 2022-01-10 18:39 | ED.GENADULT ---
HPI - General Adult General Chief complaint: Extremity Injury, Upper Stated complaint: chest pain due to fall Time Seen by Provider: 01/10/22 18:22 Source: patient, RN notes reviewed and old records reviewed Mode of arrival: ambulatory Limitations: no limitations History of Present Illness HPI narrative: 81-year-old who presents to [facility] care with complaints of going down 2 steps and then slipped and fell down remaining 3 steps today around 5:00. Patient states she has discomfort to her right arm and right shoulder area also has discomfort to her right chest area.Patient reports she has some increased pain with deep breathing. Patient states that when she fell she hit her head but denies any LOC, visual changes or dizziness, denies any headache pain. Patient has full ROM of upper extremities with strong pulses. Patient reports that she thinks she hit her upper chest area when she fell. Patient denies any shortness of breath, lung sounds present in all lung cano. Patient reports that she fell at [facility] yesterday when she tripped and fell forward and used her hands to try and break her fall, denies any injury from that fall. Does voice some anxiety over trying to arrange care for her brother who has DOWN's syndrome. complaint: fall Onset (ago): hour(s) (1700 today) Related Data Home Medications Medication Instructions Recorded Confirmed aspirin 81 mg tablet,delayed 81 mg PO DAILY 02/18/19 01/10/22 release (Adult Low Dose Aspirin) losartan 100 mg tablet 100 mg PO DAILY 01/10/22 01/10/22 Allergies Allergy/AdvReac Type Severity Reaction Status Date / Time No Known Allergies Allergy Verified 01/10/22 18:01 Review of Systems Review of Systems: CONSTITUTIONAL: Denies fever, chills, or sweats. EYES: Denies visual changes, redness, or discharge. ENT: Denies rhinorrhea, congestion, sore throat, or otalgia. CARDIOVASCULAR: right upper chest area discomfort no, palpitations, or edema. RESPIRATORY: Denies cough or dyspnea. GASTROINTESTINAL: Denies abdominal pain, nausea, vomiting, or diarrhea. GENITOURINARY: Denies dysuria or hematuria. SKIN: Denies rash or itching. MUSCULOSKELETAL: Denies back pain, joint pain, or myalgia. NEUROLOGIC: Denies headache, numbness, or weakness. PSYCHIATRIC: Positive for history of anxiety or depression. 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 Chronic obstructive pulmonary disease Essential hypertension Overweight (BMI 25.0-29.9) Patellofemoral arthritis of right knee Polycythemia vera Pure hypercholesterolemia RUQ abdominal tenderness Surgical History Surgical History History of hysterectomy (~2001) Family History Family History Sibling Family history of chronic obstructive pulmonary disease Family history of heart disease in male family member before age 55 Mother Family history of congestive heart failure Father Family history of heart disease in male family member before age 55 Family history of alcoholism, Onset Age: 47 Other Family history of Alzheimer's disease Family history of cardiovascular disease Family history of lung cancer Social History Social History Smoking packs per day: 1 Smoking cigarettes per day: 20.0 Years smoked: 25 Smoking pack-years: 25.00 Smoking status: Former smoker Second hand tobacco smoke exposure: Yes Smoking end date: 04/08/92 Alcohol intake: current Drinks per week: 7 Substance use: never Substance use type: does not use Gender identity (if verbalized by the patient): Female Comments At time of si
--- NOTE | 2022-01-10 19:03 | PC.NURSE ---
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 NAD NOTED. PT IS TO HAVE XRAYS. WILL CONTINUE TO MONITOR.
[2022-01-10 19:07] VITALS: BP 158/90; PULSE 60; RESP 16; O2SAT 98
== END 2022-01-10 19:07 | disposition home or self-care (01) ==
PROVIDERS: Emergency Provider Registered Nurse; PCP Internal Medicine
DX: S20.211A Contusion of right front wall of thorax, initial encounter (principal); W10.9XXA Fall (on) (from) unspecified stairs and steps, initial encounter; E03.9 Hypothyroidism, unspecified; F41.9 Anxiety disorder, unspecified; K22.70 Barrett's esophagus without dysplasia; J44.9 Chronic obstructive pulmonary disease, unspecified; M17.9 Osteoarthritis of knee, unspecified; E78.00 Pure hypercholesterolemia, unspecified; Z87.891 Personal history of nicotine dependence
CPT/HCPCS: 71101; 99213; G0463

== ENCOUNTER 2022-02-15 00:54 | Day surgery (SDC) | payer OTHER, SELFPAY ==
[2022-02-08 13:05] VITALS: BMI 28.3
--- NOTE | 2022-02-08 13:31 | PC.NURSE ---
PRE-OP INSTRUCTIONS, PLEASE READ CAREFULLY Report to the Outpatient Waiting Room, entrance under the green pavilion located off [facility], at time _1000_ on date _02/15/22_. Planned Procedure Time: _1200_. Time changes happen often and if your time is changed the preop area will call you the afternoon before. - You and your visitor will be asked to self-screen and do not enter if you have any COVID symptoms. - We encourage only one visitor and NO visitors under age 16 are allowed at this time. Your visitor will receive communication by the phone number that is given day of service. - The patient visitor is requested to social distance or may leave the building when not with patient due to restrictions. - A mask is required within the hospital. Patients may have clear liquids (water, carbonated beverages, clear teas, apple juice) until 3 hours prior to surgery (0900 AM) with a maximum of 20 ounces. - No food from midnight until time of surgery Take the following medications with a SIP of water the morning of surgery: _BISOPROLOL, BREO INHALER, LEVOTHYROXINE, MEMANTINE, VENLAFAXINE, & TYLENOL IF NEEDED _ Medications to discontinue per physician __N/A____, Date to take last dose Please no make-up, nail syriac, hairspray, perfume, deodorant, or body powder the day of surgery. No jewelry (including any body piercings) or valuables the day of surgery, leave them at home. Please take a shower or bath the night before, or the morning of, surgery with an antibacterial soap. Wear comfortable, loose fitting clothing. - Jewelry must be removed prior to entering the operating room. Rings and piercings that are not removed may be cut off. - The hospital will not accept responsibility for valuables. - Please leave all valuables, including medications, at home the day of surgery. If you are going home after surgery, a licensed automation driver must drive you home. - NO public transportation without another adult. - We recommend that an adult stay with you for 24 hours following discharge. - We also recommend that you do not drive, make important decision, drink alcoholic beverages, or take any drugs that were not prescribed by your health care provider for at least 24 hours after your discharge time. Follow any additional instructions given to you from your surgeon. FLEETS ENEMA - at bedtime night prior to surgery and in a.m. before coming to hospital, unless painful rectal condition. BISACODYL TAB - 2 tabs for 2 nights before surgery, unless patient has painful rectal condition. If you or anyone in your household have experienced Covid symptoms in the past week, please notify your surgeon or the nurse liaison at the phone number below for possible testing. Telephone instructions given to ___PT and asked if any additional questions and then verbalized understanding. Patient advised to call surgeon office or pre surgery nurse liaison [phone] if any additional questions.
--- NOTE | 2022-02-13 17:26 | PM.SD2 ---
Same Day Admit/Disch: HPI History of Present Illness Chief complaint: Prolapse Bleeding Int & Ext Hemorrhoids Narrative: Sarai Padron is a 81 year old female Who was seen in the office regarding some bleeding and prolapsed internal hemorrhoids. She initially was not in favor of surgery and was treated with Metamucil and mineral oil both twice a day. This really helped with the bleeding but she continues to have prolapsing internal as well as external hemorrhoids. She is taken to surgery now for hemorrhoidectomy. Her last colonoscopy was done in [address] Nunez. Hemorrhoids were seen as well as diverticulosis but no polyps. Repeat colonoscopy was not recommended for 10 years. 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 Chronic obstructive pulmonary disease Essential hypertension Overweight (BMI 25.0-29.9) Patellofemoral arthritis of right knee Polycythemia vera Pure hypercholesterolemia RUQ abdominal tenderness Surgical History Surgical History History of hysterectomy (~2001) Family History Family History Sibling Family history of chronic obstructive pulmonary disease Family history of heart disease in male family member before age 55 Mother Family history of congestive heart failure Father Family history of heart disease in male family member before age 55 Family history of alcoholism, Onset Age: 47 Other Family history of Alzheimer's disease Family history of cardiovascular disease Family history of lung cancer Social History Social History Smoking packs per day: 1 Smoking cigarettes per day: 20.0 Years smoked: 25 Smoking pack-years: 25.00 Smoking status: Former smoker Tobacco type: cigarettes Second hand tobacco smoke exposure: No Smoking end date: 04/08/92 Alcohol intake: current Drinks per week: 10 Substance use: never Substance use type: does not use Living arrangements: with family Additional living arrangements comments: HADNICAPPED BROTHER LIVES WITH PT Gender identity (if verbalized by the patient): Female Spiritual care concerns: No Same Day Admit/Disch: Med Pre-admit Medications Home Medications Medication Instructions Recorded Confirmed Type acetaminophen 650 mg 650 mg PO Q8H PRN pain #10 tabs 01/06/20 02/08/22 Rx tablet,extended release (Tylenol Arthritis Pain) albuterol sulfate 90 mcg/actuation 1 inh inhalation Q4H PRN shortness 07/03/21 02/08/22 Rx aerosol inhaler of breath or wheezing #18 grams fluticasone furoate 200 See Rx Instructions .Route 12/20/21 02/15/22 Rx mcg-vilanterol 25 mcg/dose .COMPLEX ##60 inhalation powder (Breo Ellipta) atorvastatin 40 mg tablet See Rx Instructions .Route 12/22/21 02/08/22 Rx .COMPLEX #90 tabs bisoprolol fumarate 5 mg tablet See Rx Instructions .Route 12/22/21 02/15/22 Rx .COMPLEX #90 tabs omeprazole 40 mg capsule,delayed See Rx Instructions .Route 12/22/21 02/08/22 Rx release .COMPLEX #90 caps venlafaxine 75 mg capsule,extended See Rx Instructions .Route 12/22/21 02/15/22 Rx release 24 hr .COMPLEX #90 caps levothyroxine 75 mcg tablet See Rx Instructions .Route 01/08/22 02/15/22 Rx .COMPLEX #90 tabs losartan 100 mg tablet 100 mg PO DAILY 01/10/22 02/08/22 History memantine 5 mg tablet (Namenda) 5 mg PO QAM #60 tabs 02/12/22 Rx hydrocodone 5 mg-acetaminophen 325 1 - 2 tablet PO Q6H PRN pain #20 02/15/22 Rx mg tablet tabs ibuprofen 600 mg tablet 600 mg PO Q6H PRN pain #25 tabs 02/15/22 Rx mineral oil 15 ml PO BID #473 mL 02/15/22 Rx psyllium husk (with sugar) 3.4 1 tbsp PO BID #60 packets 02/15/22 Rx gram oral powder packet (Met
[2022-02-15] VITALS (8 sets, daily range): BP systolic 134–178; BP diastolic 78–97; PULSE 64–76; RESP 16–20; TEMP 36.2–36.6; O2SAT 92–98; BMI 27.8
--- NOTE | 2022-02-15 10:30 | SUR.PREOP ---
1030- Patient notified procedure start time will be delayed. Patient verbalized understanding.
[2022-02-15] MEDS: ACETAMINOPHEN 500 MG TABLET 1000 MG PO (11:17)
[2022-02-15] MEDS: LACTATED RINGERS 1,000 ML 30 ML IV CONT (11:17)
[2022-02-15] MEDS: KETOROLAC 15 MG/ML VIAL (*BKC) IV PUSH (11:18)
--- NOTE | 2022-02-15 11:45 | WPDANESEPPF ---
Anes - Initial Pre Proc Eval Procedure: Operation Date: 02/15/22 12:45 Proposed Procedures p Hemorrhoidectomy with Possible Rubberband Ligation Internal Hemorrhoids - Jake Thompson MD Date/Time: 02/15/22 11:45 Surgeon: Jake Thompson MD Pre Op Diagnosis: Prolapse Bleeding Int & Ext Hemorrhoids Patient Data Age: 81 Gender: F Height: 1.52 m Weight: 64.8 kg Last Vital Signs Temp 97.9 F 02/15/22 10:30 Pulse 64 02/15/22 10:30 Resp 16 02/15/22 10:30 BP 134/78 02/15/22 10:30 Pulse Ox 98 02/15/22 10:30 O2 Del Method Room Air 02/15/22 10:30 Allergies Allergy/AdvReac Type Severity Reaction Status Date / Time No Known Allergies Allergy Verified 02/15/22 10:59 Home Medications Medication Instructions Recorded Confirmed Type acetaminophen 650 mg 650 mg PO Q8H PRN pain #10 tabs 01/06/20 02/08/22 Rx tablet,extended release (Tylenol Arthritis Pain) albuterol sulfate 90 mcg/actuation 1 inh inhalation Q4H PRN shortness 07/03/21 02/08/22 Rx aerosol inhaler of breath or wheezing #18 grams fluticasone furoate 200 See Rx Instructions .Route 12/20/21 02/15/22 Rx mcg-vilanterol 25 mcg/dose .COMPLEX ##60 inhalation powder (Breo Ellipta) atorvastatin 40 mg tablet See Rx Instructions .Route 12/22/21 02/08/22 Rx .COMPLEX #90 tabs bisoprolol fumarate 5 mg tablet See Rx Instructions .Route 12/22/21 02/15/22 Rx .COMPLEX #90 tabs omeprazole 40 mg capsule,delayed See Rx Instructions .Route 12/22/21 02/08/22 Rx release .COMPLEX #90 caps venlafaxine 75 mg capsule,extended See Rx Instructions .Route 12/22/21 02/15/22 Rx release 24 hr .COMPLEX #90 caps levothyroxine 75 mcg tablet See Rx Instructions .Route 01/08/22 02/15/22 Rx .COMPLEX #90 tabs losartan 100 mg tablet 100 mg PO DAILY 01/10/22 02/08/22 History memantine 5 mg tablet (Namenda) 5 mg PO QAM #60 tabs 02/12/22 Rx Patient hx anesthesia problems: none Family hx anesthesia problems: none Results Review: All pre-operative results and documents have been reviewed as part of the pre-operative evaluation. 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 Chronic obstructive pulmonary disease Essential hypertension Overweight (BMI 25.0-29.9) Patellofemoral arthritis of right knee Polycythemia vera Pure hypercholesterolemia RUQ abdominal tenderness Surgical History Surgical History History of hysterectomy (~2001) Family History Family History Sibling Family history of chronic obstructive pulmonary disease Family history of heart disease in male family member before age 55 Mother Family history of congestive heart failure Father Family history of heart disease in male family member before age 55 Family history of alcoholism, Onset Age: 47 Other Family history of Alzheimer's disease Family history of cardiovascular disease Family history of lung cancer Social History Social History Smoking packs per day: 1 Smoking cigarettes per day: 20.0 Years smoked: 25 Smoking pack-years: 25.00 Smoking status: Former smoker Tobacco type: cigarettes Second hand tobacco smoke exposure: No Smoking end date: 04/08/92 Alcohol intake: current Drinks per week: 10 Substance use: never Substance use type: does not use Living arrangements: with family Additional living arrangements comments: HADEBONYAPPED BROTHER LIVES WITH PT Gender identity (if verbalized by the patient): Female Spiritual care concerns: No Anes - Eval Final PreProcedure Day of Procedure 02/15/22 11:45 Patient weight: normal Heart: regular rate and rhythm Lungs: clear to aus
--- NOTE | 2022-02-15 11:48 | WPDHPUPDATE1 ---
History and Physical Update Update Date/Time: 02/15/22 11:48 History and Physical has been reviewed, including an updated exam of the patient. There are NO changes in the patient's condition. Risks, benefits, and alternatives have been discussed and questions answered. Patient agrees to proceed with procedure.
[2022-02-15] MEDS: BUPIVACAINE HCL 0.5% PF 30 ML VIAL INFILTRATE (13:33)
[2022-02-15] MEDS: ceFAZolin 2 GM/D5W 50 ML 2 GM/50 ML BAG IVPB (13:33)
--- NOTE | 2022-02-15 14:27 | P.OP_ITS ---
Procedure Note - Detailed Date of Procedure 02/15/22 Pre-op Diagnosis Prolapse Bleeding Int & Ext Hemorrhoids Post-op Diagnosis Same Procedure Performed Excision right anterior internal and external hemorrhoids, rubber-band ligation left lateral internal hemorrhoids Surgeon Jake Thompson MD Chrome Plater Eileen COSTELLO Anesthesia General and Local (0.5% Marcaine with Exparel) Indications Patient has prolapsed internal hemorrhoids with external hemorrhoids on both the left and the right side. She was on Metamucil in mineral oral in the bleeding pretty much stopped but she continues to have prolapsed hemorrhoids that are irritating. She is taken to surgery now for hemorrhoidectomy Findings The largest internal hemorrhoids were on the left side and will rubber-band ligated. The right anterior complex was internal and external hemorrhoids and was excised. Description of Procedure Patient was taken to surgery and induced into general anesthesia. She was then turned and placed in prone dolores-knife position. The buttocks were taped apart. Prep and drape was carried out. Local anesthetic used in combination of 0.5% Marcaine with Exparel was infiltrated. A total of 40 cc was administered. 20 cc deep subdermal and 20 cc intra sphincteric were given. I then went to the patient's right side. Isael-Grant anoscope was introduced. The right anterior complex of internal and external hemorrhoids were excised. The wound was closed with the running locking 4-0 chromic suture. All looked good. This is the wound was hemostatic. I then went to the patient's left side. There were 2 large internal hemorrhoids on the left side. These were both rubber-band ligated. I then checked for any additional anal canal pathology. None was seen. Hemostasis was good. The rectum was dressed with Xeroform gauze fluffs and Medipore tape. Patient was then returned to a supine position. She was awakened and taken to recovery in good condition. Estimated Blood Loss -5 Drains No Packing No Pathology Yes (Right anterior internal and external hemorrhoid) Complications No immediate complications Condition Stable Disposition PACU [facility] Billing Surgery - Charge Forward: Surgery Billing (Excision single complex internal and external hemorrhoid, rubber-band ligation internal hemorrhoids)
== END 2022-02-15 16:04 | disposition home or self-care (01) ==
PROVIDERS: PCP Internal Medicine; Visit Provider Surgery
PROC: (CPT 46255; principal; 2022-02-15 12:45)
DX: K64.8 Other hemorrhoids (principal); K64.4 Residual hemorrhoidal skin tags; I10 Essential (primary) hypertension; E03.9 Hypothyroidism, unspecified; J44.9 Chronic obstructive pulmonary disease, unspecified; F41.9 Anxiety disorder, unspecified; E78.00 Pure hypercholesterolemia, unspecified; Z87.891 Personal history of nicotine dependence; Z79.51 Long term (current) use of inhaled steroids
CPT/HCPCS: 46255; 88304; A9270; C9290; J0330; J0690; J1885; J2405; J2704; J3010; J7120

== ENCOUNTER 2022-06-21 10:06 | Outpatient (CLI) | payer OTHER, SELFPAY ==
--- NOTE | ~2022-06-21 | MM_ITS ---
EXAMINATION: MM screening [facility] BI w keo HISTORY: Screening mammogram TECHNIQUE: Craniocaudal and mediolateral oblique 3-D tomosynthesis images were obtained and synthetic 2-D images were generated. CAD analysis was submitted and interpreted. COMPARISON: 03/25/2021, 02/29/2020, 01/29/2019 BREAST PARENCHYMAL COMPOSITION:The breasts are heterogeneously dense, which may obscure small masses. FINDINGS: No suspicious mass, calcification, or architectural distortion are identified in either suman ast to suggest malignancy. There has been no suspicious interval change. IMPRESSION: No mammographic evidence of malignancy. Recommend routine screening mammography in one year. BI-RADS Category 1: Negative Reviewed, dictated and finalized at location .
== END 2022-06-21 10:07 | disposition home or self-care (01) ==
PROVIDERS: PCP Internal Medicine; Visit Provider Internal Medicine
DX: Z12.31 Encounter for screening mammogram for malignant neoplasm of breast (principal)
CPT/HCPCS: 77063; 77067

== ENCOUNTER 2022-07-25 08:44 | Outpatient (CLI) | payer OTHER, SELFPAY ==
[2022-07-25 09:17] LABS: Alanine Aminotransferase 26 U/L (6-35); Albumin Level 4.1 g/dL (3.5-5.1); Alkaline Phosphatase 142 U/L (38-126); Anion Gap 5 mmol/L (8-16); Aspartate Amino Transferase 30 U/L (14-36); Bilirubin,Total 0.7 mg/dL (0.2-1.3); Blood Urea Nitrogen 15 mg/dL (7-17); Calcium 8.6 mg/dL (8.4-10.2); Carbon Dioxide 30 mmol/L (22-30); Chloride 105 mmol/L (98-107); Cholesterol 181 mg/dL (0-200); Estimated Glomerular Filt Rate > 60; Glucose 96 mg/dL (65-110); HDL Direct 65 mg/dL; Potassium 3.6 mmol/L (3.4-5.0); Sodium 140 mmol/L (137-145); Triglycerides 78 mg/dL (<150)
[2022-07-25 09:28] LABS: LDL Cholesterol Direct 91 mg/dL
[2022-07-25 09:47] LABS: Thyroid Stimulating Hormone 0.448 uIU/mL (0.465-4.680)
[2022-07-25 10:11] LABS: Vitamin D 25 Hydroxy 20.7 ng/mL
== END 2022-07-25 08:45 | disposition home or self-care (01) ==
PROVIDERS: PCP Internal Medicine; Visit Provider Nurse Practitioner
DX: E78.5 Hyperlipidemia, unspecified (principal); E03.9 Hypothyroidism, unspecified; E55.9 Vitamin D deficiency, unspecified
CPT/HCPCS: 36415; 80053; 80061; 82306; 84443

== ENCOUNTER 2022-12-25 11:01 | Emergency (ER) | payer OTHER, SELFPAY ==
--- NOTE | ~2022-12-25 | XR_ITS ---
XR chest 2V DATE: 12/25/2022 15:14 INDICATION: Left shoulder pain, posterior thoracic pain TECHNIQUE: PA and lateral views COMPARISON: 08/11/2019 PA and lateral FINDINGS: Mild cardiomegaly. There is thoracic and abdominal aortic calcification, ectasia and unfold ing. No hilar or mediastinal enlargement is detected. The lungs appear mildly hyperinflated but clear of infiltrate or consolidation. No pleural effusion o r pulmonary vascular congestion or pneumothorax is detected. Degenerative disc disease of the lumbar spine. IMPRESSION: Mild cardiomegaly Thoracic and abdominal aortic atherosclerosis No active pulmonary disease Reviewed, dictated and finalized at location A.
--- NOTE | ~2022-12-25 | XR_ITS ---
Left Shoulder Technique: AP and scapular Y views were obtained. Clinical History: Pain Findings: No fracture or dislocation is seen. Osseous alignment is anatomic. Minimal humeral head ost eophyte present.. Soft tissues are unremarkable. Impression: Mild degenerative change of the glenohumeral joint. Reviewed, dictated and finalized at location . Impression: Mild degenerative change of the glenohumeral joint.
[2022-12-25 11:13] VITALS: BP 140/83; PULSE 66; RESP 16; TEMP 36.6; O2SAT 96
--- NOTE | 2022-12-25 11:13 | ECG_ITS ---
Measurements Intervals [place] Rate: 63 P: 56 AL: 160 QRS: 29 QRSD: 88 T: 64 QT: 410 QTc: 420 Interpretive Statements SINUS RHYTHM MINIMAL Q AWVES- ANTEROLAT/INF LEADS BASELINE ARTIFACT- I, III, AVR, AVL BORDERLINE ECG NO PREVIOUS ECG AVAILABLE FOR COMPARISON Electronically Signed On 12-25-2022 12:24:15 CDT by Neal Álvarez D.O.
--- NOTE | 2022-12-25 15:19 | ED.GENADULT ---
HPI - General Adult General Chief complaint: Extremity Problem,Nontraumatic Stated complaint: shoulder pain Time Seen by Provider: 12/25/22 14:38 History of Present Illness HPI narrative: Sarai Padron is an 82 y/o female who presents with reports of waking up with a left mid/ upper/lateral back pain. She states the pain is worse with movement. 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 Moving her left arm across her body makes the pain worse, she took Tylenol today prior to coming here for the pain Denies cough/fever/chest pain/neck pain or midline back pain Related Data Allergies Allergy/AdvReac Type Severity Reaction Status Date / Time No Known Allergies Allergy Verified 12/25/22 14:38 Review of Systems Review of Systems: CONSTITUTIONAL: Denies fever, chills, or sweats. EYES: Denies visual changes, redness, or discharge. ENT: Denies rhinorrhea, congestion, sore throat, or otalgia. CARDIOVASCULAR: Denies chest pain, palpitations, or edema. RESPIRATORY: Denies cough or dyspnea. GASTROINTESTINAL: Denies abdominal pain, nausea, vomiting, or diarrhea. GENITOURINARY: Denies dysuria or hematuria. SKIN: Denies rash or itching. MUSCULOSKELETAL:complains of left upper mid back pain that started today NEUROLOGIC: Denies headache, numbness, dizziness, or weakness. PSYCHIATRIC: Denies anxiety or depression. 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 Chronic obstructive pulmonary disease Essential hypertension Overweight (BMI 25.0-29.9) Patellofemoral arthritis of right knee Polycythemia vera Pure hypercholesterolemia RUQ abdominal tenderness Surgical History Surgical History History of hysterectomy (~2001) Hx of hemorrhoidectomy Excision right anterior internal and external hemorrhoids, rubber-band ligation left lateral internal hemorrhoids on 02/15/22. Family History Family History Sibling Family history of chronic obstructive pulmonary disease Family history of heart disease in male family member before age 55 Mother Family history of congestive heart failure Father Family history of heart disease in male family member before age 55 Family history of alcoholism, Onset Age: 47 Other Family history of Alzheimer's disease Family history of cardiovascular disease Family history of lung cancer Social History Social History Smoking packs per day: 1 Smoking cigarettes per day: 20.0 Years smoked: 25 Smoking pack-years: 25.00 Smoking status: Former smoker Tobacco type: cigarettes Second hand tobacco smoke exposure: No Smoking end date: 04/08/92 Alcohol intake: current Drinks per week: 10 Substance use: never Substance use type: does not use Lack of Transportation: No Lack of Food: Never True Current Housing: I Have Housing Concerned About Future Housing: No Difficulty Paying Gas/Electric Bills: No Difficulty Paying for Meds: No Currently Unemployed: No Education: High School Diploma/GED Difficulty w/ Childcare or Family Care: No Living arrangements: with family Additional living arrangements comments: HANDICAPPED BROTHER LIVES WITH PT Gender identity (if verbalized by the patient): Female Spiritual care concerns: No Exam Narrative: GENERAL: Well-appearing, well-nourished, and in no acute distress. HEAD: Normocephalic, atraumatic. EYES: PERRLA and EOMI. ENT: Nares clear, no rhinorrhea or epistaxis. Mucous membranes moist. Oropharynx without tonsillar hypertrophy exudate or other lesio
[2022-12-25] MEDS: LIDOCAINE 5% PATCH 1 PATCH TRANSDERM (16:37)
== END 2022-12-25 16:39 | disposition home or self-care (01) ==
PROVIDERS: Emergency Provider Nurse Practitioner Family; PCP Family Medicine
DX: S29.012A Strain of muscle and tendon of back wall of thorax, initial encounter (principal); E03.9 Hypothyroidism, unspecified; I10 Essential (primary) hypertension; J44.9 Chronic obstructive pulmonary disease, unspecified; Z87.891 Personal history of nicotine dependence; X58.XXXA Exposure to other specified factors, initial encounter
CPT/HCPCS: 71046; 73030; 93005; 99284; A9270

== ENCOUNTER 2023-01-28 15:13 | Emergency (ER) | payer OTHER, SELFPAY ==
--- NOTE | ~2023-01-28 | XR_ITS ---
EXAMINATION: XR knee LT min 4V DATE: 01/28/2023 16:07 INDICATION: Left knee pain post fall TECHNIQUE: Anteroposterior, 2 oblique and crosstable lateral views of the left knee were obtained COMPARISON: None. FINDINGS: Alignment is normal. No fracture. 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 No joint effusion/layering lipohemarthrosis. Small amount of atherosclerotic calcification along the popliteal artery. Soft tiss ues are unremarkable. IMPRESSION: 1. No left knee joint effusion or acute osseous abnormality. 2. 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 Reviewed, dictated and finalized at location A. IMPRESSION: 1. No left knee joint effusion or acute osseous abnormality. 2. 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
--- NOTE | ~2023-01-28 | XR_ITS ---
XR shoulder RT min 2V 01/28/2023 16:07 Indication: Right shoulder pain Procedure: 4 views right shoulder Comparison: No prior studies for comparison. Findings: There is mild osteoarthritis of the shoulder. No fracture, subluxation or dislocation. No s oft tissue abnormality. No foreign bodies. Impression: 1: Mild polyarticular osteoarthritis. Reviewed, dictated and finalized at location B. Impression: 1: Mild polyarticular osteoarthritis.
--- NOTE | ~2023-01-28 | XR_ITS ---
[XR ribs RT 2V ] INDICATION: Right rib pain TECHNIQUE: Frontal projection of the upper right ribs, frontal projection of the lower right ribs, ob lique projection of all the right ribs, frontal inspiratory chest x-ray for interpretation. FINDINGS: There are no displaced rib fractures identified. There are no soft tissue abnormality see n. The lungs are clear. IMPRESSION: 1:No acute displaced rib fractures. Reviewed, dictated and finalized at location B.
--- NOTE | 2023-01-28 15:17 | ED.LOWEXIN ---
HPI - Extremity Injury (Lower) General Chief Complaint: Extremity Injury, Lower Stated Complaint: Leg pain Time Seen by Provider: 01/28/23 15:40 Source: patient Mode of arrival: ambulatory Limitations: no limitations History of Present Illness HPI Narrative: Sarai is an 82-year-old female patient presenting to the clinic today with complaints of left knee pain, right rib pain, and right shoulder pain after falling this morning. She reports she fell on her knee and now reached her hand does have some bruising to her right palm however this is not a concern of hers today. She is reporting pain with range of motion to the right shoulder, right anterior knee, and pain to the right anterior chest wall. Rates her pain 8/10 currently. Related Data Allergies Allergy/AdvReac Type Severity Reaction Status Date / Time No Known Allergies Allergy Verified 01/28/23 15:39 Review of Systems Review of Systems: Pertinent positives per HPI. Patient denies any fever, chills, rash, headache, visual changes, dizziness, cough, runny nose, sore throat, shortness of breath, chest pain, palpitations, nausea, vomiting, diarrhea, constipation, abdominal pain, or any urinary issues. [facility] Past Medical History Medical History Abdominal pain Acquired hypothyroidism Anxiety disorder, unspecified 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 Chronic obstructive pulmonary disease Essential hypertension Overweight (BMI 25.0-29.9) Patellofemoral arthritis of right knee Polycythemia vera Pure hypercholesterolemia RUQ abdominal tenderness Surgical History Surgical History History of hysterectomy (~2001) Hx of hemorrhoidectomy Excision right anterior internal and external hemorrhoids, rubber-band ligation left lateral internal hemorrhoids on 02/15/22. Family History Family History Sibling Family history of chronic obstructive pulmonary disease Family history of heart disease in male family member before age 55 Mother Family history of congestive heart failure Father Family history of heart disease in male family member before age 55 Family history of alcoholism, Onset Age: 47 Other Family history of Alzheimer's disease Family history of cardiovascular disease Family history of lung cancer Social History Social History Smoking packs per day: 1 Smoking cigarettes per day: 20.0 Years smoked: 25 Smoking pack-years: 25.00 Smoking status: Former smoker Tobacco type: cigarettes Second hand tobacco smoke exposure: No Smoking end date: 04/08/92 Alcohol intake: current Drinks per week: 10 Substance use: never Substance use type: does not use Lack of Transportation: No Lack of Food: Never True Current Housing: I Have Housing Concerned About Future Housing: No Difficulty Paying Gas/Electric Bills: No Difficulty Paying for Meds: No Currently Unemployed: No Education: High School Diploma/GED Difficulty w/ Childcare or Family Care: No Living arrangements: with family Additional living arrangements comments: HANDICAPPED BROTHER LIVES WITH PT Gender identity (if verbalized by the patient): Female Spiritual care concerns: No Comments At the time of my signature, I reviewed and agree with the nursing past medical, surgical, social, and family history. There is no relevant family history pertinent to the patient complaint. Exam Narrative: General: Well-developed, well nourished, in no apparent distress Head: Normocephalic, atraumatic. Cardio: Regular rate and rhythm, s1 and s2 normal, no murmur appreciated. Resp: Clear to auscultation bilaterally, no rhonchi, rales, wheezing or rubs. Musculoskeletal: No deformity, tender to palpation over the right anteri
[2023-01-28 15:35] VITALS: BP 127/79; PULSE 69; RESP 16; TEMP 36.3; O2SAT 95
== END 2023-01-28 16:41 | disposition home or self-care (01) ==
PROVIDERS: Emergency Provider Nurse Practitioner Family; PCP Family Medicine
DX: S83.92XA Sprain of unspecified site of left knee, initial encounter (principal); S43.401A Unspecified sprain of right shoulder joint, initial encounter; S60.221A Contusion of right hand, initial encounter; S20.211A Contusion of right front wall of thorax, initial encounter; W19.XXXA Unspecified fall, initial encounter; E03.9 Hypothyroidism, unspecified; K22.70 Barrett's esophagus without dysplasia; J44.9 Chronic obstructive pulmonary disease, unspecified; I10 Essential (primary) hypertension; M17.11 Unilateral primary osteoarthritis, right knee; E78.00 Pure hypercholesterolemia, unspecified; Z87.891 Personal history of nicotine dependence
CPT/HCPCS: 71100; 73030; 73564; 99214; G0463

== ENCOUNTER 2023-01-30 11:12 | Emergency (ER) | payer OTHER, SELFPAY ==
--- NOTE | ~2023-01-30 | XR_ITS ---
Right Knee Technique: AP, lateral, and sunrise views were obtained. Clinical History: Pain Findings: No fracture or dislocation is seen. Osseous alignment is anatomic. There is mild spurring a t the intercondylar notch and patella. There is subtle chondrocalcinosis of the menisci. No joint eff usion is seen. Impression: Mild degenerative spurring at the intercondylar notch and patella.. Subtle chondrocalcinosis of the menisci. Reviewed, dictated and finalized at location M. Impression: Mild degenerative spurring at the intercondylar notch and patella.. Subtle chondrocalcinosis of the menisci.
[2023-01-30 11:18] VITALS: BP 127/71; PULSE 82; RESP 20; TEMP 36.4; O2SAT 92
--- NOTE | 2023-01-30 13:29 | ED.FALL ---
HPI - Fall General Chief Complaint: Fall Stated Complaint: fall Time Seen by Provider: 01/30/23 11:25 History of Present Illness HPI Narrative: 82-year-old female presents to the emergency room for injury sustained in a ground-level mechanical fall several days ago. Patient was seen at an urgent care 2 days ago for her injuries where she was complaining of bilateral knee pain right rib pain and right shoulder pain. Imaging at that time showed no acute bony abnormalities. Patient returns today stating that her right knee was not x-rayed. Patient is a lives with her brother at home whom she is the caregiver. Patient has been using a walker and a wheelchair to perform her ADLs. Related Data Allergies Allergy/AdvReac Type Severity Reaction Status Date / Time No Known Allergies Allergy Verified 01/30/23 12:05 Review of Systems Review of Systems: CONSTITUTIONAL: Denies fever, chills, or sweats. EYES: Denies visual changes, redness, or discharge. ENT: Denies rhinorrhea, congestion, sore throat, or otalgia. CARDIOVASCULAR: Denies chest pain, palpitations, or edema. RESPIRATORY: Denies cough or dyspnea. GASTROINTESTINAL: Denies abdominal pain, nausea, vomiting, or diarrhea. GENITOURINARY: Denies dysuria or hematuria. SKIN: Denies rash or itching. MUSCULOSKELETAL: Reports right knee pain left knee pain right rib pain and right shoulder pain NEUROLOGIC: Denies headache, numbness, dizziness, or weakness. PSYCHIATRIC: Denies anxiety or depression. [facility] Past Medical History Medical History Abdominal pain Acquired hypothyroidism Anxiety disorder, unspecified 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 Chronic obstructive pulmonary disease Essential hypertension Overweight (BMI 25.0-29.9) Patellofemoral arthritis of right knee Polycythemia vera Pure hypercholesterolemia RUQ abdominal tenderness Surgical History Surgical History History of hysterectomy (~2001) Hx of hemorrhoidectomy Excision right anterior internal and external hemorrhoids, rubber-band ligation left lateral internal hemorrhoids on 02/15/22. Family History Family History Sibling Family history of chronic obstructive pulmonary disease Family history of heart disease in male family member before age 55 Mother Family history of congestive heart failure Father Family history of heart disease in male family member before age 55 Family history of alcoholism, Onset Age: 47 Other Family history of Alzheimer's disease Family history of cardiovascular disease Family history of lung cancer Social History Social History Smoking packs per day: 1 Smoking cigarettes per day: 20.0 Years smoked: 25 Smoking pack-years: 25.00 Smoking status: Former smoker Tobacco type: cigarettes Second hand tobacco smoke exposure: No Smoking end date: 04/08/92 Alcohol intake: current Drinks per week: 10 Substance use: never Substance use type: does not use Lack of Transportation: No Lack of Food: Never True Current Housing: I Have Housing Concerned About Future Housing: No Difficulty Paying Gas/Electric Bills: No Difficulty Paying for Meds: No Currently Unemployed: No Education: High School Diploma/GED Difficulty w/ Childcare or Family Care: No Living arrangements: with family Additional living arrangements comments: HANDICAPPED BROTHER LIVES WITH PT Gender identity (if verbalized by the patient): Female Spiritual care concerns: No Exam Narrative: GENERAL: Well-appearing, well-nourished, no physical limitations, and in no acute distress. HEAD: Normocephalic, atraumatic. EYES: Conjunctivae normal, PERRLA and EOMI. CHEST: Clear to auscultation. No respiratory distress. No wheezes rales or rhonchi
[2023-01-30 13:58] VITALS: BP 136/85; PULSE 88; RESP 15; O2SAT 99
== END 2023-01-30 14:12 | disposition home or self-care (01) ==
PROVIDERS: Emergency Provider Nurse Practitioner Family; PCP Family Medicine
DX: S83.91XA Sprain of unspecified site of right knee, initial encounter (principal); J44.9 Chronic obstructive pulmonary disease, unspecified; E03.9 Hypothyroidism, unspecified; E78.00 Pure hypercholesterolemia, unspecified; K22.70 Barrett's esophagus without dysplasia; M17.11 Unilateral primary osteoarthritis, right knee; D45 Polycythemia vera; Z87.891 Personal history of nicotine dependence; Z90.710 Acquired absence of both cervix and uterus; W18.30XA Fall on same level, unspecified, initial encounter
CPT/HCPCS: 73564; 99283

== ENCOUNTER 2023-02-08 09:07 | Outpatient (CLI) | payer OTHER, SELFPAY ==
[2023-02-08 09:35] LABS: Hematocrit 43.6 % (37.0-47.0); Hemoglobin 14.2 g/dL (12.0-15.0); Mean Corpuscular HGB Conc 32.6 g/dl (32-36); Mean Corpuscular Hemoglobin 30.1 pg (26-34); Mean Corpuscular Volume 92.4 fl (80-100); Mean Platelet Volume 8.7 fl (7.4-10.4); Platelet Count Result 375 k/mm3 (150-375); Red Blood Count 4.72 M/mm3 (4.2-5.4); Red Cell Distribution Width 12.5 % (11.5-14.5); White Blood Count 7.7 K/mm3 (4.5-10.0)
[2023-02-08 09:49] LABS: Alanine Aminotransferase 21 U/L (6-35); Albumin Level 3.8 g/dL (3.5-5.1); Alkaline Phosphatase 120 U/L (38-126); Anion Gap 5 mmol/L (8-16); Aspartate Amino Transferase 28 U/L (14-36); Bilirubin,Total 0.7 mg/dL (0.2-1.3); Blood Urea Nitrogen 13 mg/dL (7-17); Calcium 9.1 mg/dL (8.4-10.2); Carbon Dioxide 33 mmol/L (22-30); Chloride 102 mmol/L (98-107); Cholesterol 175 mg/dL (0-200); Estimated Glomerular Filt Rate > 60; Glucose 99 mg/dL (65-110); HDL Direct 44 mg/dL; Potassium 3.1 mmol/L (3.4-5.0); Sodium 140 mmol/L (137-145); Triglycerides 109 mg/dL (<150)
[2023-02-08 10:00] LABS: LDL Cholesterol Direct 94 mg/dL
[2023-02-08 10:13] LABS: Free T4 Free Thyroxine 1.45 ng/mL (0.78-2.19)
== END 2023-02-08 09:08 | disposition home or self-care (01) ==
LOC: ANHLAB 09:09
PROVIDERS: PCP Family Medicine; Visit Provider Nurse Practitioner
DX: E78.5 Hyperlipidemia, unspecified (principal); E03.9 Hypothyroidism, unspecified; D45 Polycythemia vera
CPT/HCPCS: 36415; 80053; 80061; 84439; 84443; 85027

== ENCOUNTER 2023-02-12 12:33 | Emergency (ER) | payer OTHER, SELFPAY ==
--- NOTE | ~2023-02-12 | XR_ITS ---
EXAMINATION: XR knee LT 3V DATE: 02/12/2023 13:49 INDICATION: Left knee pain TECHNIQUE: Three views of the left knee were obtained. COMPARISON: 01/28/2023 FINDINGS: Alignment is normal. No fracture or osteochondral lesion. There is tricompartmental osteoar thritis, severe in the patellofemoral compartment and mild in the medial and lateral compartments. Th ere is a small joint effusion. Soft tissues are unremarkable. IMPRESSION: 1. Small joint effusion and tricompartmental osteoarthritis without acute osseous abnormality. Reviewed, dictated and finalized at location L. [employer] IMPRESSION: 1. Small joint effusion and tricompartmental osteoarthritis without acute osseo us abnormality.
[2023-02-12 12:59] VITALS: BP 184/89; PULSE 67; RESP 18; TEMP 36.8; O2SAT 96
--- NOTE | 2023-02-12 14:41 | ED.LOWEXIN ---
HPI - Extremity Injury (Lower) General Chief Complaint: Extremity Injury, Lower Stated Complaint: left knee pain Time Seen by Provider: 02/12/23 14:11 History of Present Illness HPI Narrative: This is an 82 yo who presents with L extremity knee pain. 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 SHe has been ambulating with a limp. Pain radiates down to her foot. She fell a few weeks ago and was seen 01/30. No recurrence of falls/no new trauma. Pain was getting better but then returned and got worse this morning. No fevers. She had been using Naproxyn but stopped. She started taking 2 500mg tablets of tylenol twice one day. It helped but didn't completely remove the pain. No report of pops/clicks/catching/locking. The pain got better as the day went on yesterday. Denies paresthesias. Knee hasn't given out on her. Takes care of her handicapped brother who lives with her. Related Data Allergies Allergy/AdvReac Type Severity Reaction Status Date / Time No Known Allergies Allergy Verified 01/30/23 12:05 [facility] Past Medical History Medical History (Updated 02/13/23 @ 00:00 by Background Daruslanon) Abdominal pain Acquired hypothyroidism Anxiety disorder, unspecified 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 Chronic obstructive pulmonary disease Essential hypertension Osteoarthritis of left knee Overweight (BMI 25.0-29.9) Patellofemoral arthritis of right knee Polycythemia vera Pure hypercholesterolemia RUQ abdominal tenderness Surgical History Surgical History History of hysterectomy (~2001) Hx of hemorrhoidectomy Excision right anterior internal and external hemorrhoids, rubber-band ligation left lateral internal hemorrhoids on 02/15/22. Family History Family History Sibling Family history of chronic obstructive pulmonary disease Family history of heart disease in male family member before age 55 Mother Family history of congestive heart failure Father Family history of heart disease in male family member before age 55 Family history of alcoholism, Onset Age: 47 Other Family history of Alzheimer's disease Family history of cardiovascular disease Family history of lung cancer Social History Social History Smoking packs per day: 1 Smoking cigarettes per day: 20.0 Years smoked: 25 Smoking pack-years: 25.00 Smoking status: Former smoker Tobacco type: cigarettes Second hand tobacco smoke exposure: No Smoking end date: 04/08/92 Alcohol intake: current Drinks per week: 10 Substance use: never Substance use type: does not use Lack of Transportation: No Lack of Food: Never True Current Housing: I Have Housing Concerned About Future Housing: No Difficulty Paying Gas/Electric Bills: No Difficulty Paying for Meds: No Currently Unemployed: No Education: High School Diploma/GED Difficulty w/ Childcare or Family Care: No Living arrangements: with family Additional living arrangements comments: HANDICAPPED BROTHER LIVES WITH PT Gender identity (if verbalized by the patient): Female Spiritual care concerns: No Exam Const: General: healthy appearing, no acute distress and alert; No confusion, diaphoretic or ill appearing Nutritional Appearance: well nourished Limitations: no limitations HENMT: Head: normal to inspection Other: gross auditory acuity intact Resp: Effort & Inspection: normal respiratory effort and no use of accessory muscles Cardio: Rate: regular rate Other: foot/ankle/calf/knee warm and well-perfused Skin: General skin exam: normal color Other: varicose veins throughout bilateral lower extremities Neuro: General: patient oriented x3 and moves all extremities Speech: normal speech Extrem: Other: Focused
[2023-02-12] MEDS: ACETAMINOPHEN 500 MG TABLET 1000 MG PO (14:46)
[2023-02-12] MEDS: IBUPROFEN 600 MG TABLET PO (14:47)
== END 2023-02-12 15:00 | disposition home or self-care (01) ==
PROVIDERS: Emergency Provider Student in an Organized Health Care Education/Training Program; PCP Family Medicine
DX: M17.12 Unilateral primary osteoarthritis, left knee (principal); M25.462 Effusion, left knee; E03.9 Hypothyroidism, unspecified; J44.9 Chronic obstructive pulmonary disease, unspecified; I10 Essential (primary) hypertension; Z87.891 Personal history of nicotine dependence
CPT/HCPCS: 73562; 99283; A9270

== ENCOUNTER 2023-04-08 09:21 | Observation (INO) | payer OTHER, SELFPAY ==
[2023-04-08] VITALS (32 sets, daily range): BP systolic 139–170; BP diastolic 84–96; PULSE 76–93; RESP 10–23; TEMP 36–36.5; O2SAT 94–100; BMI 27.6
--- NOTE | ~2023-04-08 | CT_ITS ---
EXAMINATION: CT abdomen pelvis w con DATE: 04/08/2023 10:18 INDICATION: Epigastric and lower abdominal pain. TECHNIQUE: Computed tomography (CT) of the abdomen and pelvis was performed with 100 mL Omnipaque 350 intravenous contrast. Automated exposure control and iterative reconstruction technique were employe d. The dose-length product was 377.23 mGy-cm. COMPARISON: CT abdomen and pelvis 03/13/2021 FINDINGS: The visualized portions of the lung bases demonstrate mild atelectasis. No pleural effusion . The heart size is normal. No pericardial effusion. There is a moderate-sized sliding hiatal hernia. There is a 1.9 cm cyst in the liver. There are low-attenuation lesions in the spleen measuring up to 9 mm, likely granulomatous disease. Calcifications in the spleen are consistent with old granulomato us disease. There are gallstones in the gallbladder. The gallbladder is distended. The pancreas is no rmal. There is chronic thickening of the adrenal glands, likely benign. The kidneys are normal. There is calcified atherosclerosis of the aorta and many of the other arteries. There is diverticulosis of the colon without evidence of diverticulitis. There are no dilated loops of bowel. The appendix is n ot visualized. There are no pathologically enlarged lymph nodes. There is no free intraperitoneal flu id. There is severe lumbar spondylosis. IMPRESSION: 1. Moderate-sized sliding hiatal hernia. 2. Cholelithiasis. Gallbladder distention may be secondary to fasting. Correlate with physical exam t o exclude acute cholecystitis. Reviewed, dictated and finalized at location A. ALL APPLICATOR IMPRESSION: 1. Moderate-sized sliding hiatal hernia. 2. Cholelithiasis. Gallbladder distention may be secondary to fasting. Correlat e with physical exam to exclude acute cholecystitis.
--- NOTE | ~2023-04-08 | US_ITS ---
EXAMINATION: US abdomen limited DATE: 04/09/2023 08:47 INDICATION: Upper abdominal pain TECHNIQUE: Multiple grayscale and Doppler ultrasound images of the abdomen were obtained. COMPARISON: 04/08/2023 FINDINGS: The pancreatic head and body are normal in appearance. The pancreatic tail is not visualized. Liver has normal echogenicity and contour, with a smooth surface. No significant change in a 1.8 cm cyst i n the left hepatic lobe. No intrahepatic biliary duct dilation suspected. Portal venous flow was seen in the hepatopetal, normal direction and has normal Doppler waveform. The visualized portion of the upper abdominal inferior vena cava and aorta are normal. The gallbladder is normal in appearance. The re are a couple 5 mm echogenic foci at the fundus of the gallbladder without definitive shadowing whi ch could represent either gallbladder polyps, sludge balls or potentially gallstones. The common bile duct measures 3 mm, which is normal. Sonographic Gould sign was reported as negative by the sonogra pher. IMPRESSION: 1. A couple 5 mm echogenic nodule without evident posterior acoustic shadowing at the fundus of the g allbladder which could represent either gallbladder polyps, sludge balls or gallstones. Given the rel atively high attenuation on the prior contrast enhanced CT, could consider correlation with a noncont rast CT which would differentiate calcified gallstones versus enhancement in the setting of gallbladd er polyps. 2. Otherwise normal gallbladder with no wall thickening or sonographic Gould sign to suggest acute c holecystitis. Reviewed, dictated and finalized at location A. CE NURSE IMPRESSION: 1. A couple 5 mm echogenic nodule without evident posterior acoustic shadowing at the fundus of the gallbladder which could represent either gallbladder polyp s, sludge balls or gallstones. Given the relatively high attenuation on the karyna or contrast enhanced CT, could consider correlation with a noncontrast CT which would differentiate calcified gallstones versus enhancement in the setting of gallbladder polyps. 2. Otherwise normal gallbladder with no wall thickening or sonographic Gould s ign to suggest acute cholecystitis.
--- NOTE | ~2023-04-08 | CT_ITS ---
EXAMINATION: CT abdomen pelvis wo con DATE: 04/09/2023 14:41 INDICATION: Abnormal ultrasound TECHNIQUE: Computed tomography (CT) of the abdomen and pelvis was performed without intravenous contr ast. Automated exposure control and iterative reconstruction technique were employed. The dose-length product was 389.14 mGy-cm. COMPARISON: Ultrasound dated 04/09/[address] dated 04/08/2023. FINDINGS: Similar pattern of mild reticular opacities at the periphery of the bilateral lung bases which could represent atelectasis in the acute setting or more chronic interstitial lung disease. Heart size is n ormal. Atherosclerotic coronary artery calcification is. No pericardial or pleural effusion. Small to moderate-sized sliding-type hiatal hernia. 1.9 cm cyst in the lateral segment of the left hepatic lo be. Couple splenic calcific lesions consistent with old granulomatous disease. There are some depende ntly layering sludge versus vicariously excreted contrast in the gallbladder. Persistent increased de nsity consistent with calcification associated with the previously noted 2 nodular foci at the fundus of the gallbladder consistent with gallstones. No gallbladder dilation or abnormal wall thickening t o suggest acute cholecystitis. Pancreas, bilateral adrenal glands and kidneys are normal. There are f ew scattered colonic diverticula without adjacent from trace stranding to suggest diverticulitis. No bowel obstruction. The appendix is again not visualized and may be surgically absent. Bladder is norm al. The uterus is not identified and has likely been surgically resected. No free intraperitoneal gas or fluid No pathologically enlarged abdominal or pelvic lymphadenopathy. Severe lumbar spondylosis. IMPRESSION: 1. Persistent high attenuation on noncontrast study consistent with calcification associated with the 2 nodular densities at the fundus of the gallbladder consistent with gallstones. 2. Small to moderate-sized sliding-type hiatal hernia. Reviewed, dictated and finalized at location A. TURNER IMPRESSION: 1. Persistent high attenuation on noncontrast study consistent with calcificati on associated with the 2 nodular densities at the fundus of the gallbladder con sistent with gallstones. 2. Small to moderate-sized sliding-type hiatal hernia.
--- NOTE | 2023-04-08 09:15 | ED.NAVMDI ---
HPI - Nausea/Vomiting/Diarrhea General Chief complaint: Nausea/Vomiting/Diarrhea Stated complaint: Diarrhea Time Seen by Provider: 04/08/23 09:25 Source: patient Mode of arrival: ambulatory Limitations: no limitations History of Present Illness HPI Narrative: Is a an 82-year-old female patient presenting to the ER today with complaints of diarrhea x3 days. She reports Related Data Allergies Allergy/AdvReac Type Severity Reaction Status Date / Time No Known Allergies Allergy Verified 02/15/23 10:31 Review of Systems Review of Systems: Pertinent positives per HPI. Patient denies any fever, chills, rash, headache, visual changes, dizziness, cough, runny nose, sore throat, shortness of breath, chest pain, palpitations, nausea, vomiting, diarrhea, constipation, abdominal pain, or any urinary issues. [facility] Past Medical History Medical History Abdominal pain Acquired hypothyroidism Anxiety disorder, unspecified 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 Chronic obstructive pulmonary disease Essential hypertension Osteoarthritis of left knee Overweight (BMI 25.0-29.9) Patellofemoral arthritis of right knee Polycythemia vera Pure hypercholesterolemia RUQ abdominal tenderness Surgical History Surgical History History of hysterectomy (~2001) Hx of hemorrhoidectomy Excision right anterior internal and external hemorrhoids, rubber-band ligation left lateral internal hemorrhoids on 02/15/22. Family History Family History Sibling Family history of chronic obstructive pulmonary disease Family history of heart disease in male family member before age 55 Mother Family history of congestive heart failure Father Family history of heart disease in male family member before age 55 Family history of alcoholism, Onset Age: 47 Other Family history of Alzheimer's disease Family history of cardiovascular disease Family history of lung cancer Social History Social History Smoking packs per day: 1 Smoking cigarettes per day: 20.0 Years smoked: 25 Smoking pack-years: 25.00 Smoking status: Former smoker Tobacco type: cigarettes Second hand tobacco smoke exposure: No Smoking end date: 04/08/92 Alcohol intake: current Drinks per week: 10 Substance use: never Substance use type: does not use Lack of Transportation: No Lack of Food: Never True Current Housing: I Have Housing Concerned About Future Housing: No Difficulty Paying Gas/Electric Bills: No Difficulty Paying for Meds: No Currently Unemployed: No Education: High School Diploma/GED Difficulty w/ Childcare or Family Care: No Living arrangements: with family Additional living arrangements comments: HANDICAPPED BROTHER LIVES WITH PT Gender identity (if verbalized by the patient): Female Spiritual care concerns: No Comments At the time of my signature, I reviewed and agree with the nursing past medical, surgical, social, and family history. There is no relevant family history pertinent to the patient complaint. Exam Narrative: General: Well-developed, well nourished, in no apparent distress. Head: Normocephalic, atraumatic. Cardio: Regular rate and rhythm, s1 and s2 normal, no murmur appreciated. Resp: Clear to auscultation bilaterally, no rhonchi, rales, wheezing or rubs. Abdomen: Soft, pliable, bowel sounds present in all quadrants, non-tender to palpation, no organomegly, no CVAT tenderness. Course Course Emergency Course: Portions of this record may have been created with voice recognition software. Vital Signs Vital signs: Vital Signs Temperature 36.5 C 04/08/23 09:21 Pulse Rate 86 04/08/23 09:21 Respiratory Rate 17 04/08/23 09:21 Blood Pressur
[2023-04-08 09:44] LABS: Basophils Percent Auto 0.3 % (0.2-1.2); Eosinophils Absolute Auto 0.1 K/mm3 (0-0.3); Eosinophils Percent Auto 0.8 % (0-4.4); Hematocrit 48.3 % (37.0-47.0); Hemoglobin 15.9 g/dL (12.0-15.0); Immature Granulocyte Absolute 0.02 K/mm3 (0.00-0.031); Immature Granulocyte Percent A 0.3 % (0-0.5); Lymphocytes Absolute Auto 0.59 K/mm3 (0.9-3.2); Lymphocytes Percent Auto 9.3 % (18.3-44.2); Mean Corpuscular HGB Conc 32.9 g/dl (32-36); Mean Corpuscular Hemoglobin 30.2 pg (26-34); Mean Corpuscular Volume 91.8 fl (80-100); Mean Platelet Volume 9.9 fl (7.4-10.4); Monocytes Absolute Auto 0.9 K/mm3 (0.1-0.6); Neutrophils Absolute Auto 4.8 K/mm3 (1.3-6.7); Neutrophils Percent Auto 75.3 % (45.5-73.1); Platelet Count Result 230 k/mm3 (150-375); Red Blood Count 5.26 M/mm3 (4.2-5.4); Red Cell Distribution Width 13.2 % (11.5-14.5); White Blood Count 6.3 K/mm3 (4.5-10.0)
--- NOTE | 2023-04-08 09:52 | ED.GENADULT ---
HPI - General Adult General Chief complaint: Nausea/Vomiting/Diarrhea Stated complaint: Diarrhea Time Seen by Provider: 04/08/23 09:25 History of Present Illness HPI narrative: 82-year-old female presenting to the emergency department for evaluation nausea vomiting diarrhea. Patient states diarrhea started on Saturday. Patient states she has had persistent nausea the patient likely had emesis after trying some Pedialyte. Patient has epigastric and suprapubic abdominal pain and tenderness to palpation. Related Data Home Medications Medication Instructions Recorded Confirmed lidocaine 5 % topical patch 1 patch topical DAILY PRN 04/08/23 04/08/23 (Lidoderm) arthritic pain memantine 5 mg tablet (Namenda) 5 mg PO BID 04/08/23 04/08/23 psyllium husk (with sugar) 3.4 1 tbsp PO DAILY 04/08/23 04/08/23 gram oral powder packet (Metamucil (with sugar)) Allergies Allergy/AdvReac Type Severity Reaction Status Date / Time No Known Allergies Allergy Verified 04/08/23 15:29 Review of Systems Review of Systems: All systems reviewed & are unremarkable except as noted in HPI and below PMFSH Past Medical History Medical History (Updated 04/08/23 @ 19:23 by Bryant Vasquez MD) Anxiety disorder, unspecified 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 Chronic obstructive pulmonary disease Essential hypertension Gastroesophageal reflux disease Hypothyroidism Osteoarthritis of left knee Patellofemoral arthritis of right knee Polycythemia vera Pure hypercholesterolemia Surgical History Surgical History (Updated 04/08/23 @ 16:14 by Kenya Saeed PA-C) History of breast biopsy History of cataract extraction History of hemorrhoidectomy History of hysterectomy (2001) Family History Family History Sibling Family history of heart disease in male family member before age 55 Family history of chronic obstructive pulmonary disease Lung cancer Mother Family history of congestive heart failure Father Family history of heart disease in male family member before age 55 Family history of alcoholism, Onset Age: 47 Other Family history of Alzheimer's disease Grandparent Family history of cardiovascular disease Social History Social History (Updated 04/08/23 @ 16:09 by Kenya Saeed PA-C) Social History: Surrogate medical decision maker: Tomasa Lujan, niece. Code status: Full code. Smoking packs per day: 1 Smoking cigarettes per day: 20.0 Years smoked: 25 Smoking pack-years: 25.00 Smoking status: Former smoker Tobacco type: cigarettes Second hand tobacco smoke exposure: No Smoking end date: 04/08/92 Alcohol intake: former Drinks per week: 10 Substance use: never Substance use type: does not use Do You Feel Safe in your Home?: Yes Lack of Transportation: No Lack of Food: Never True Current Housing: I Have Housing Concerned About Future Housing: No Difficulty Paying Gas/Electric Bills: No Difficulty Paying for Meds: No Currently Unemployed: No Education: Don't Know Difficulty w/ Childcare or Family Care: No Living arrangements: with family Additional living arrangements comments: Lives in [place]. Disabled brother lives at home with her. Spiritual care concerns: No Exam Narrative: APPEARANCE: Well appearing, no pain, no distress, well-nourished. HEAD: normocephalic, atraumatic. EYES: PERRLA/EOMI, conjunctivae clear. NOSE: Normal no drainage EARS:TMS clear with good light reflex. THROAT: Pharynx clear, no exudate. NECK: Supple. No adenopathy, no masses. RESPIRATORY: Airway patent, respirations nonlabored. Clear to auscultation bilaterally, no rales, rhonchi, wheezing. CARDIOVASCULAR: Regular rate and rhythm without murmurs rubs or gallops. ABDOMINAL: Epigastric and suprapubic tenderness to palpation, normal bowel sounds, nondistended MUSCULOSKELETAL: Moves all extremities.
[2023-04-08 09:54] LABS: Alanine Aminotransferase 26 U/L (6-35); Alkaline Phosphatase 110 U/L (38-126); Anion Gap 13 mmol/L (8-16); Aspartate Amino Transferase 33 U/L (14-36); Bilirubin,Total 0.9 mg/dL (0.2-1.3); Blood Urea Nitrogen 15 mg/dL (7-17); Calcium 9.2 mg/dL (8.4-10.2); Carbon Dioxide 21 mmol/L (22-30); Chloride 104 mmol/L (98-107); Estimated Glomerular Filt Rate > 60; Glucose 96 mg/dL (65-110); Lipase 102 U/L (23-300); Sodium 138 mmol/L (137-145)
[2023-04-08 10:19] LABS: Influenza A QL RT-PCR Negative (Negative); Influenza B QL RT-PCR Negative (Negative); RSV RNA, RT-PCR Negative (Negative); SARS-CoV-2 RNA PCR Negative (Negative)
[2023-04-08] MEDS: SODIUM CHLORIDE 0.9% IV 1,000 ML 999 ML IV CONT (10:49)
[2023-04-08] MEDS: ONDANSETRON INJ 4 MG/2 ML VIAL IV PUSH ×3 (10:49→19:37)
[2023-04-08 11:43] LABS: Appearance Urine Cloudy (Clear); Bacteria Urine None Seen /hpf; Bilirubin Urine Negative (Negative); Blood Urine Trace (Negative); Color Urine Yellow (Yellow); Glucose Urine UA Negative (Negative); Ketones Urine 1+ mg/dL (Negative); Leukocyte Esterase Ur Negative LEU/UL (Negative); Nitrate Urine Negative (Negative); Non Pathogenic Casts 0-2; Protein Urine Negative (Negative); RBC Urine 0-2 /hpf (0-2); Squamous Epithelial Cell Urine Occasional /hpf (Few); Urobilinogen Urine 0.2 mg/dL (<2.0); WBC Urine 0-5 /hpf; pH Urine 5.5 (5.0-9.0)
[2023-04-08 11:49] LABS: Add Urine Microscopic? YES
[2023-04-08] MEDS: SODIUM CHLORIDE 0.9% IV 1,000 ML 100 ML IV CONT ×2 (12:58→23:02)
--- NOTE | 2023-04-08 15:13 | ADMGEN ---
This patient, Sarai Padron, was admitted to [facility] Room 317-01. Patient/family oriented to hospital policies and general routines including ID bracelet, bed and alarms, visiting hours, pain management, procedures, bathroom and other care routines, personal items, smoking policy, room service/diet, and visiting hours. Information on how to activate the Rapid Response Team has been discussed. Patient/Family are encouraged to report perceived risks to care and to ask questions if they do not understand what they are told or what they should do. report from oswaldo in the er.
--- NOTE | 2023-04-08 15:42 | PM.IMHP ---
H&P: HPI History of Present Illness Date/Time: 04/08/23 16:15 Chief Complaint: Nausea, vomiting, diarrhea. Narrative: This is a pleasant 82-year-old female with gastroesophageal reflux disease, Massey esophagus, hypertension, hyperlipidemia, hypothyroidism, depression, and anxiety who presented to the emergency department for evaluation of nausea, vomiting, diarrhea. The patient provides the following history. She started having diarrhea on Saturday and reports having a numerous to count episodes for couple of days however she has not had a bowel movement since early this morning. Additionally she reports generalized abdominal discomfort, nausea, and poor appetite. She has been trying to drink Pedialyte and Gatorade to stay hydrated however she does not think she held them down very long and she had multiple episodes of emesis thereafter. She has chronic heartburn and states that has not necessarily been any worse than usual as of late. She has not noticed any dark stools or bright red blood in the stools. She also denies fever, chills, sweats, chest pain, shortness of breath, hematemesis, and dysuria. She has no known sick contacts. In the ED: She was afebrile on arrival with stable vital signs. Labs were significant for a WBC count of 6.3, hemoglobin 15.9, hematocrit 40.3%, sodium 138, potassium 3.0, carbon dioxide 21, BUN 50, creatinine 0.70. LFTs were normal. Urine was positive for 1+ ketones with a specific gravity of 1.050. She tested negative for influenza, RSV, and COVID. CT of the abdomen and pelvis showed a moderate sized sliding hiatal hernia and cholelithiasis with gallbladder distension. She received 2 L normal saline, 4 mg ondansetron, and 40 mEq potassium chloride and she is being admitted in this setting for further treatment and evaluation. Review of Systems Review of Systems: Twelve systems were reviewed and are negative except for as per HPI. 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 Chronic obstructive pulmonary disease Essential hypertension Gastroesophageal reflux disease Hypothyroidism Osteoarthritis of left knee Patellofemoral arthritis of right knee Polycythemia vera Pure hypercholesterolemia Surgical History Surgical History History of breast biopsy History of cataract extraction History of hemorrhoidectomy History of hysterectomy (2001) Family History Family History Sibling Family history of heart disease in male family member before age 55 Family history of chronic obstructive pulmonary disease Lung cancer Mother Family history of congestive heart failure Father Family history of heart disease in male family member before age 55 Family history of alcoholism, Onset Age: 47 Other Family history of Alzheimer's disease Grandparent Family history of cardiovascular disease Social History Social History (Updated 04/08/23 @ 22:26 by Kenya Saeed PA-C) Social History: Surrogate medical decision maker: brett Peraza. Code status: Full code. Smoking packs per day: 1 Smoking cigarettes per day: 20.0 Years smoked: 25 Smoking pack-years: 25.00 Smoking status: Former smoker Tobacco type: cigarettes Second hand tobacco smoke exposure: No Smoking end date: 04/08/92 Alcohol intake: former Drinks per week: 10 Substance use: never Substance use type: does not use Do You Feel Safe in your Home?: Yes Lack of Transportation: No Lack of Food: Never True Current Housing: I Have Housing Concerned About Future Housing: No Difficulty Paying Gas/Electric Bills: No Difficulty Paying for Meds: No Currently Unemployed: No Education: Don't Know Difficulty w/ Childcare or Family Care: No Living arrange
[2023-04-08] MEDS: POTASSIUM CHLORIDE INJ 40 MEQ in SODIUM CHLORIDE 0.9% IV 500 ML 130 MEQ IVPB (17:10)
--- NOTE | 2023-04-08 19:31 | PC.NURSE ---
patient requesting gas pain medication and sleeping medication called Hector Saeed awaiting call back.
[2023-04-08] MEDS: ACETAMINOPHEN 325 MG TABLET 650 MG PO (19:36)
--- NOTE | 2023-04-08 20:38 | PC.NURSE ---
SHAYLEE Saeed talking with patient currently, informed about patient request for sleep aide and gas medication
--- NOTE | 2023-04-08 20:41 | PC.NURSE ---
SHAYLEE Saeed informed about elevated bp 170/86, patient did not take bp medication today d/t n, v, & D
[2023-04-08] MEDS: diphenhydrAMINE HCl CAP 25 MG CAPSULE PO (21:43)
[2023-04-08] MEDS: PANTOPRAZOLE SODIUM IV 40 MG VIAL IV PUSH (22:43)
[2023-04-09] MEDS: ACETAMINOPHEN 325 MG TABLET 650 MG PO ×2 (05:29→23:37)
[2023-04-09] MEDS: LEVOTHYROXINE SODIUM 75 MCG TABLET BY MOUTH (05:45)
[2023-04-09 06:00] VITALS: BP 150/77; PULSE 78; RESP 18; TEMP 36.3; O2SAT 93
[2023-04-09 06:41] LABS: Hematocrit 43.9 % (37.0-47.0); Hemoglobin 14.2 g/dL (12.0-15.0); Mean Corpuscular HGB Conc 32.3 g/dl (32-36); Mean Corpuscular Volume 92.6 fl (80-100); Mean Platelet Volume 9.7 fl (7.4-10.4); Platelet Count Result 204 k/mm3 (150-375); Red Blood Count 4.74 M/mm3 (4.2-5.4); Red Cell Distribution Width 13.1 % (11.5-14.5); White Blood Count 4.6 K/mm3 (4.5-10.0)
[2023-04-09 06:53] LABS: Alanine Aminotransferase 21 U/L (6-35); Albumin Level 3.4 g/dL (3.5-5.1); Alkaline Phosphatase 89 U/L (38-126); Anion Gap 10 mmol/L (8-16); Aspartate Amino Transferase 34 U/L (14-36); Bilirubin,Total 0.8 mg/dL (0.2-1.3); Blood Urea Nitrogen 11 mg/dL (7-17); Calcium 8.2 mg/dL (8.4-10.2); Carbon Dioxide 21 mmol/L (22-30); Chloride 107 mmol/L (98-107); Estimated CRCL calculation 53 ml/min; Estimated Glomerular Filt Rate > 60; Glucose 62 mg/dL (65-110); Magnesium 1.7 mg/dL (1.6-2.3); Potassium 3.7 mmol/L (3.4-5.0); Sodium 138 mmol/L (137-145)
[2023-04-09 09:16] VITALS: PULSE 86
[2023-04-09] MEDS: bisoproloL fumarate 5 MG TABLET BY MOUTH (09:16)
[2023-04-09] MEDS: POTASSIUM CHLORIDE 10 MEQ ER TABLET PO (09:16)
[2023-04-09] MEDS: VENLAFAXINE HCL XR 75 MG CAP.ER.24H BY MOUTH (09:16)
[2023-04-09] MEDS: LOSARTAN POTASSIUM 100 MG TABLET BY MOUTH (09:16)
[2023-04-09] MEDS: MEMANTINE 5 MG TABLET PO ×2 (09:16→21:31)
[2023-04-09] MEDS: amLODIPine BESYLATE 2.5 MG TABLET PO (09:16)
[2023-04-09] MEDS: ATORVASTATIN 40 MG TABLET BY MOUTH (09:16)
[2023-04-09] MEDS: SODIUM CHLORIDE 0.9% IV 1,000 ML 100 ML IV CONT ×2 (09:20→19:43)
[2023-04-09] MEDS: PSYLLIUM POWDER PACKET 1 PACKET PO (09:20)
--- NOTE | 2023-04-09 09:35 | PM.IMPN ---
Progress Note: A&P Assessment and Plan (1) Nausea vomiting and diarrhea: Code(s): R11.2 - Nausea with vomiting, unspecified; R19.7 - Diarrhea, unspecified Status: Acute Assessment and Plan: IV fluids d/c, ADAT, supportive care Suspect acute viral gastroenteritis Abd US somewhat abnormal, rec CT of gallbladder to better visualize shadowing, ordered and pending (2) Dehydration: Code(s): E86.0 - Dehydration Status: Acute Assessment and Plan: resolved (3) Hypokalemia: Code(s): E87.6 - Hypokalemia Status: Acute Assessment and Plan: resolved (4) Generalized weakness: Code(s): R53.1 - Weakness Status: Acute Assessment and Plan: Multifactorial, PT/OT when able (5) Essential hypertension: Code(s): I10 - Essential (primary) hypertension Status: Acute Assessment and Plan: Blood pressure reviewed / Continue home antihypertensives for now (6) Hypothyroidism: Code(s): E03.9 - Hypothyroidism, unspecified Status: Acute Assessment and Plan: Continue levothyroxine, TSH wnl 02/28 (7) Gastroesophageal reflux disease: Code(s): K21.9 - Gastro-esophageal reflux disease without esophagitis Status: Acute Assessment and Plan: Cont home PPI Plan Discharge home tomorrow if symptoms resolved, CT scan ok and PT/OT ok for home DVT prophylaxis with SCDs GI prophylaxis with home PPI Code status full code Subjective Date/time seen: 04/09/23 09:35 Interval history: 82-year-old female with gastroesophageal reflux disease, Massey's esophagus, hypertension, hyperlipidemia, hypothyroidism, depression, and anxiety who presented to the emergency department for evaluation of nausea, vomiting, diarrhea and is being treated for acute viral gastroenteritis. No overnight events noted. No chest pain or shortness of breath. No fevers or chills. No diarrhea since being admitted. Review of Systems Review of Systems: 12 point review of systems was assessed and was negative except as noted in the HPI Exam Narrative: General: No acute distress, alert and oriented per baseline HEENT: Atraumatic, normocephalic, mucous membranes moist CV: Regular rate and rhythm, S1, S2 Lungs: Clear to auscultation bilaterally, no rales or crackles noted, no wheezes, good air entry Abdomen: Soft, nontender, nondistended Extremities: Normal to inspection Skin: No rashes noted, no lesions or wounds seen Psych: Euthymic, normal affect Objective Data Vital Signs Vital Signs: Vital Signs - 24 hr 04/08/23 11:09 04/08/23 09:45 04/08/23 09:46 Temperature Pulse Rate 83 86 86 Respiratory Rate 20 21 H 16 Blood Pressure 157/92 H 154/93 H Pulse Oximetry 97 97 98 Oxygen Delivery 04/08/23 10:00 04/08/23 10:01 04/08/23 10:20 Temperature Pulse Rate 84 84 80 Respiratory Rate 23 H 14 19 Blood Pressure 148/96 H Pulse Oximetry 96 95 100 Oxygen Delivery 04/08/23 10:21 04/08/23 10:30 04/08/23 10:31 Temperature Pulse Rate 81 84 84 Respiratory Rate 15 21 H 19 Blood Pressure 166/91 H 153/92 H Pulse Oximetry 100 100 100 Oxygen Delivery 04/08/23 10:54 04/08/23 11:00 04/08/23 11:18 Temperature Pulse Rate 84 81 88 Respiratory Rate 16 23 H 17 Blood Pressure Pulse Oximetry 100 100 97 Oxygen Delivery 04/08/23 12:13 04/08/23 12:15 04/08/23 12:33 Temperature Pulse Rate 90 84 85 Respiratory Rate 14 21 H 16 Blood Pressure 166/91 H Pulse Oximetry 100 95 Oxygen Delivery 04/08/23 12:45 04/08/23 12:48 04/08/23 12:49 Temperature Pulse Rate 93 84 84 Respiratory Rate 23 H 21 H 19 Blood Pressure 149/90 H Pulse Oximetry 94 98 Oxygen Delivery 04/08/23 13:00 04/08/23 13:15 04/08/23 13:33 Temperature Pulse Rate 88 87 82 Respiratory Rate 16 13 17 Blood Pressure Pulse Oximetry 96 99 Oxygen Delivery
[2023-04-09 13:25] VITALS: BP 162/79; PULSE 61; RESP 18; TEMP 36.3; O2SAT 97
[2023-04-09 20:49] VITALS: BP 167/89; PULSE 56; RESP 16; TEMP 36.3; O2SAT 96
[2023-04-09] MEDS: diphenhydrAMINE HCl CAP 25 MG CAPSULE PO (23:37)
[2023-04-10 04:43] VITALS: BP 158/88; PULSE 58; RESP 16; TEMP 36.9; O2SAT 94
[2023-04-10] MEDS: SODIUM CHLORIDE 0.9% IV 1,000 ML 100 ML IV CONT (06:19)
[2023-04-10] MEDS: LEVOTHYROXINE SODIUM 75 MCG TABLET BY MOUTH (06:19)
[2023-04-10 06:57] LABS: Basophils Percent Auto 0.8 % (0.2-1.2); Eosinophils Absolute Auto 0.2 K/mm3 (0-0.3); Eosinophils Percent Auto 4.7 % (0-4.4); Hematocrit 43.1 % (37.0-47.0); Hemoglobin 14.2 g/dL (12.0-15.0); Immature Granulocyte Absolute 0.01 K/mm3 (0.00-0.031); Immature Granulocyte Percent A 0.3 % (0-0.5); Lymphocytes Absolute Auto 0.93 K/mm3 (0.9-3.2); Lymphocytes Percent Auto 24.3 % (18.3-44.2); Mean Corpuscular HGB Conc 32.9 g/dl (32-36); Mean Corpuscular Hemoglobin 30.1 pg (26-34); Mean Corpuscular Volume 91.5 fl (80-100); Mean Platelet Volume 9.9 fl (7.4-10.4); Monocytes Absolute Auto 0.6 K/mm3 (0.1-0.6); Monocytes Percent Auto 14.4 % (2.6-8.5); Neutrophils Absolute Auto 2.1 K/mm3 (1.3-6.7); Neutrophils Percent Auto 55.5 % (45.5-73.1); Platelet Count Result 217 k/mm3 (150-375); Red Blood Count 4.71 M/mm3 (4.2-5.4); Red Cell Distribution Width 12.9 % (11.5-14.5); White Blood Count 3.8 K/mm3 (4.5-10.0)
[2023-04-10 07:09] LABS: Alanine Aminotransferase 20 U/L (6-35); Albumin Level 3.3 g/dL (3.5-5.1); Alkaline Phosphatase 87 U/L (38-126); Anion Gap 5 mmol/L (8-16); Aspartate Amino Transferase 30 U/L (14-36); Bilirubin,Total 0.7 mg/dL (0.2-1.3); Blood Urea Nitrogen 9 mg/dL (7-17); Calcium 8.4 mg/dL (8.4-10.2); Carbon Dioxide 27 mmol/L (22-30); Chloride 109 mmol/L (98-107); Estimated CRCL calculation 46 ml/min; Estimated Glomerular Filt Rate > 60; Glucose 81 mg/dL (65-110); Potassium 3.2 mmol/L (3.4-5.0); Sodium 141 mmol/L (137-145)
[2023-04-10 08:35] VITALS: PULSE 62
[2023-04-10] MEDS: bisoproloL fumarate 5 MG TABLET BY MOUTH (08:35)
[2023-04-10] MEDS: PSYLLIUM POWDER PACKET 1 PACKET PO (08:35)
[2023-04-10] MEDS: LOSARTAN POTASSIUM 100 MG TABLET BY MOUTH (08:36)
[2023-04-10] MEDS: POTASSIUM CHLORIDE 10 MEQ ER TABLET PO (08:36)
[2023-04-10] MEDS: ATORVASTATIN 40 MG TABLET BY MOUTH (08:36)
[2023-04-10] MEDS: amLODIPine BESYLATE 2.5 MG TABLET PO (08:36)
[2023-04-10] MEDS: MEMANTINE 5 MG TABLET PO (08:36)
[2023-04-10] MEDS: VENLAFAXINE HCL XR 75 MG CAP.ER.24H BY MOUTH (08:36)
[2023-04-10] MEDS: POTASSIUM CHLORIDE 20 MEQ PACKET (FOR LIQUID) PO (08:42)
[2023-04-10 08:56] LABS: Atypical Lymphocytes Present; Platelet Estimate Adequate (Adequate); Schistocytes None Seen (NORMAL)
[2023-04-10 14:00] VITALS: BP 120/75; PULSE 59; RESP 16; TEMP 36.4; O2SAT 97
--- NOTE | 2023-04-10 14:12 | PM.DS ---
DS: Admitting Diagnosis Discharge Date 04/10/23 Admitting Diagnosis nausea, vomiting, diarrhea DS: Discharge Diagnosis Discharge Diagnosis (1) Nausea vomiting and diarrhea: Code(s): R11.2 - Nausea with vomiting, unspecified; R19.7 - Diarrhea, unspecified Status: Acute (2) Dehydration: Code(s): E86.0 - Dehydration Status: Acute (3) Hypokalemia: Code(s): E87.6 - Hypokalemia Status: Acute (4) Generalized weakness: Code(s): R53.1 - Weakness Status: Acute (5) Essential hypertension: Code(s): I10 - Essential (primary) hypertension Status: Acute (6) Hypothyroidism: Code(s): E03.9 - Hypothyroidism, unspecified Status: Acute (7) Gastroesophageal reflux disease: Code(s): K21.9 - Gastro-esophageal reflux disease without esophagitis Status: Acute DS: Summary Hospital Course Reason for hospitalization: 82yo female with gastroesophageal reflux disease, Massey's esophagus, hypertension, hyperlipidemia, hypothyroidism, depression, and anxiety who presented to the emergency department for evaluation of nausea, vomiting, diarrhea and is being treated for acute viral gastroenteritis. Please see H&P for details. Hospital Course: CBC was remarkable for hemoglobin of 16. She did have a monocytosis noted with normal white count. Hemoglobin trended to normal with IV fluids. White count dropped to 3800 probably related to the viral illness. She had a minor metabolic non gap acidosis probably related to the diarrhea. This resolved as her diarrhea abated. LFTs within normal limits. Lipase was normal. Potassium is low at times and this was replaced. Urinalysis was not consistent with UTI influenza, RSV and COVID nasal swab PCR were negative. CT abdomen pelvis with contrast showed moderate size sliding hiatal hernia, cholelithiasis and gallbladder distention probably related to fasting. Abdominal ultrasound showing either gallbladder polyps, sludge balls or gallstones. Repeat CT scan without contrast showed persistent high attenuation with calcification with 2 nodular densities in the fundus of the gallbladder consistent with gallstones. Patient was aware that she has gallstones. She was started on IV fluids. Diet was advanced as she tolerated. Therapy was ordered and patient has been up walking. She feels well. She is eating but not as much as she normally does. She does feel ready for discharge. Patient overall did well and was able be discharged home on 04/10/2023. Status at Discharge Cognitive/behavioral status at discharge: stable Time Spent with Patient Time attestation: Total time spent providing and/or coordinating discharge services: 35 minutes Time spent: Greater than 30 minutes Exam Narrative: AF 98.5 158/88 62 16 94% ra Gen - NARD Chest - CTA bilaterally, nml RR CV - RRR S1/S2 Abd - Soft, NT/ND, Positive BS Ext - No pedal edema Psych - Nml mood and affect Skin - Warm and dry DS: Data Data Completed and Pending Labs on day of discharge: Labs from last 24 hours 04/10/23 06:32 WBC 3.8 L RBC 4.71 Hgb 14.2 Hct 43.1 MCV 91.5 MCH 30.1 MCHC 32.9 RDW 12.9 Plt Count 217 MPV 9.9 Immature Gran % (Auto) 0.3 Neut % (Auto) 55.5 Lymph % (Auto) 24.3 Ector % (Auto) 14.4 H Eos % (Auto) 4.7 H Baso % (Auto) 0.8 Lymph # (Auto) 0.93 Ector # (Auto) 0.6 Eos # (Auto) 0.2 Baso # (Auto) 0.0 Abs Immat Gran (auto) 0.01 Absolute Neuts (auto) 2.1 Absolute Nucleated RBC 0.0 Nucleated RBC % 0.0 Atypical Lymphocytes Present Platelet Estimate Adequate Schistocytes None seen Sodium 141 Potassium 3.2 L Chloride 109 H Carbon Dioxide 27 Anion Gap 5 L BUN 9 Creatinine 0.70 Estim Creat Clear Calc 46 Estimated GFR > 60 Glucose 81 Calcium 8.4 Total Bilirubin 0.7 AST 30 ALT 20 Alkaline Phosphatase 87 Total Protein 7.0 Albumin 3.3 L Discharge Plan Discharge
== END 2023-04-10 15:30 | disposition home or self-care (01) ==
LOC: ANHED 09:42 → ANH3MEDSUR 14:42
PROVIDERS: Nurse Practitioner Family; Physician Assistant; Admitting Provider Student in an Organized Health Care Education/Training Program; Emergency Provider Emergency Medicine; PCP Family Medicine; Visit Provider Internal Medicine
DX: R11.2 Nausea with vomiting, unspecified (principal); E86.0 Dehydration; E87.6 Hypokalemia; R53.1 Weakness; I10 Essential (primary) hypertension; Z23 Encounter for immunization; E78.5 Hyperlipidemia, unspecified; E03.9 Hypothyroidism, unspecified; K21.9 Gastro-esophageal reflux disease without esophagitis; F41.9 Anxiety disorder, unspecified; K80.20 Calculus of gallbladder without cholecystitis without obstruction; K22.70 Barrett's esophagus without dysplasia; J44.9 Chronic obstructive pulmonary disease, unspecified; E10.9 Type 1 diabetes mellitus without complications; K44.9 Diaphragmatic hernia without obstruction or gangrene; M17.0 Bilateral primary osteoarthritis of knee; Z79.1 Long term (current) use of non-steroidal anti-inflammatories (NSAID); Z79.51 Long term (current) use of inhaled steroids; Z87.891 Personal history of nicotine dependence; Z79.899 Other long term (current) drug therapy; Z83.6 Family history of other diseases of the respiratory system; M19.90 Unspecified osteoarthritis, unspecified site
CPT/HCPCS: 36415; 74176; 74177; 76705; 80053; 81001; 83690; 83735; 85025; 85027; 87637; 90471; 90694; 96361; 96374; 96375; 96376; 97161; 97165; 99285; A9270; C9113; G0008; G0378; J2405; J3480; J7030; J7040; Q9967

== ENCOUNTER 2023-05-14 11:09 | Outpatient (CLI) | payer OTHER, SELFPAY ==
[2023-05-14 11:36] LABS: Hematocrit 45.8 % (37.0-47.0); Hemoglobin 15.4 g/dL (12.0-15.0); Mean Corpuscular HGB Conc 33.6 g/dl (32-36); Mean Corpuscular Hemoglobin 30.4 pg (26-34); Mean Corpuscular Volume 90.3 fl (80-100); Mean Platelet Volume 9.7 fl (7.4-10.4); Platelet Count Result 293 k/mm3 (150-375); Red Blood Count 5.07 M/mm3 (4.2-5.4); Red Cell Distribution Width 13.4 % (11.5-14.5); White Blood Count 6.2 K/mm3 (4.5-10.0)
== END 2023-05-14 11:10 | disposition home or self-care (01) ==
LOC: ANHLAB 11:12
PROVIDERS: PCP Family Medicine; Visit Provider Nurse Practitioner
DX: K22.70 Barrett's esophagus without dysplasia (principal)
CPT/HCPCS: 36415; 85027

== ENCOUNTER 2023-05-28 08:55 | Emergency (ER) | payer OTHER, SELFPAY ==
[2023-05-28 09:25] VITALS: BP 115/85; PULSE 104; RESP 16; TEMP 36.6; O2SAT 94
--- NOTE | 2023-05-28 11:35 | PC.NURSE ---
patient presents to the desk and states she called her doctor and he called in a prescription she is going to try . Patient verbalized understanding of the risks of leaving before seeing a provider.
== END 2023-05-28 11:35 | disposition left against medical advice (07) ==
LOC: ANHED 12:18
PROVIDERS: PCP Family Medicine
DX: U07.1 COVID-19 (principal)
CPT/HCPCS: 99199

== ENCOUNTER 2023-06-28 00:35 | Day surgery (SDC) | payer OTHER, SELFPAY ==
[2023-06-20 10:50] VITALS: BMI 27.3
--- NOTE | 2023-06-26 10:12 | SUR.PREOP ---
Patient called regarding upcoming procedure. Unable to leave a message.
[2023-06-28 11:13] VITALS: BP 136/85; PULSE 69; RESP 19; TEMP 36.2; O2SAT 98
[2023-06-28] MEDS: LACTATED RINGERS 1,000 ML 150 ML IV CONT (11:23)
--- NOTE | 2023-06-28 11:36 | WPDANESEPPF ---
Anes - Initial Pre Proc Eval Procedure: Operation Date: 06/28/23 12:30 Proposed Procedures p Esophagogastroduodenoscopy & Colonoscopy - Kraig Chong MD Date/Time: 06/28/23 11:36 Surgeon: Kraig Chong MD Pre Op Diagnosis: Massey's esophagus, Diarrhea Patient Data Age: 82 Gender: F Height: 1.52 m Weight: 60.6 kg Last Vital Signs Temp 97.1 F L 06/28/23 11:13 Pulse 69 06/28/23 11:13 Resp 19 06/28/23 11:13 BP 136/85 06/28/23 11:13 Pulse Ox 98 06/28/23 11:13 O2 Del Method Room Air 06/28/23 11:13 Allergies Allergy/AdvReac Type Severity Reaction Status Date / Time No Known Allergies Allergy Verified 04/18/23 12:31 Home Medications Medication Instructions Recorded Confirmed Type acetaminophen 650 mg 650 mg PO Q8H PRN pain #10 tabs 01/06/20 06/20/23 Rx tablet,extended release (Tylenol Arthritis Pain) albuterol sulfate 90 mcg/actuation 1 inh inhalation Q4H PRN shortness 07/19/22 06/20/23 Rx aerosol inhaler of breath or wheezing #18 grams atorvastatin 40 mg tablet See Rx Instructions .Route 12/19/22 06/20/23 Rx .COMPLEX #90 tabs bisoprolol fumarate 5 mg tablet See Rx Instructions .Route 12/19/22 06/20/23 Rx .COMPLEX #90 tabs losartan 100 mg tablet See Rx Instructions .Route 12/19/22 06/20/23 Rx .COMPLEX #90 tabs amlodipine 2.5 mg tablet 2.5 mg PO DAILY #90 tabs 01/01/23 06/20/23 Rx venlafaxine 75 mg capsule,extended See Rx Instructions .Route 01/04/23 06/20/23 Rx release 24 hr .COMPLEX #90 caps levothyroxine 75 mcg tablet See Rx Instructions .Route 02/11/23 06/20/23 Rx .COMPLEX #90 tabs lidocaine 5 % topical patch 1 patch topical DAILY PRN 04/08/23 06/20/23 History (Lidoderm) arthritic pain memantine 5 mg tablet (Namenda) 5 mg PO BID 04/08/23 06/20/23 History psyllium husk (with sugar) 3.4 1 tbsp PO DAILY 04/08/23 06/20/23 History gram oral powder packet (Metamucil (with sugar)) omeprazole 40 mg capsule,delayed 40 mg PO DAILY 04/09/23 06/20/23 History release potassium chloride 10 mEq See Rx Instructions .Route 05/10/23 06/20/23 Rx tablet,extended release .COMPLEX #90 tabs fluticasone furoate 200 See Rx Instructions .Route 05/14/23 06/20/23 Rx mcg-vilanterol 25 mcg/dose .COMPLEX #60 ea inhalation powder (Breo Ellipta) Patient hx anesthesia problems: none Family hx anesthesia problems: none Results Review: All pre-operative results and documents have been reviewed as part of the pre-operative evaluation. 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 Chronic obstructive pulmonary disease Essential hypertension Gastroesophageal reflux disease Hypothyroidism Osteoarthritis of left knee Patellofemoral arthritis of right knee Polycythemia vera Pure hypercholesterolemia Surgical History Surgical History History of breast biopsy History of cataract extraction History of hemorrhoidectomy History of hysterectomy (2001) Family History Family History Sibling Family history of heart disease in male family member before age 55 Family history of chronic obstructive pulmonary disease Lung cancer Mother Family history of congestive heart failure Father Family history of heart disease in male family member before age 55 Family history of alcoholism, Onset Age: 47 Other Family history of Alzheimer's disease Grandparent Family history of cardiovascular disease Social History Social History Social History: Surrogate medical decision maker: Tomasa Lujan, niece. Code status: Full code. Smoking packs per day: 1 Smoking cigarettes per day: 20.0 Years smoked: 25 Smoking pack-years: 25.00 Smoking s
--- NOTE | 2023-06-28 12:00 | PM.HPGS ---
History of Present Illness History of Present Illness Consent: Risks, benefits, and alternatives have been discussed and questions answered. Patient agrees to proceed with procedure. 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 Chronic obstructive pulmonary disease Colon cancer screening Essential hypertension Gastroesophageal reflux disease Hypothyroidism Osteoarthritis of left knee Patellofemoral arthritis of right knee Polycythemia vera Pure hypercholesterolemia Surgical History Surgical History History of breast biopsy History of cataract extraction History of hemorrhoidectomy History of hysterectomy (2001) Family History Family History Sibling Family history of heart disease in male family member before age 55 Family history of chronic obstructive pulmonary disease Lung cancer Mother Family history of congestive heart failure Father Family history of heart disease in male family member before age 55 Family history of alcoholism, Onset Age: 47 Other Family history of Alzheimer's disease Grandparent Family history of cardiovascular disease Social History Social History Social History: Surrogate medical decision maker: Tomasa Lujan, niece. Code status: Full code. Smoking packs per day: 1 Smoking cigarettes per day: 20.0 Years smoked: 25 Smoking pack-years: 25.00 Smoking status: Former smoker Tobacco type: cigarettes Second hand tobacco smoke exposure: No Smoking end date: 04/08/92 Alcohol intake: current Drinks per week: 7 Substance use: never Substance use type: does not use Do You Feel Safe in your Home?: Yes Lack of Transportation: No Lack of Food: Never True Current Housing: I Have Housing Concerned About Future Housing: No Difficulty Paying Gas/Electric Bills: No Difficulty Paying for Meds: No Currently Unemployed: No Education: Don't Know Difficulty w/ Childcare or Family Care: No Living arrangements: with family Additional living arrangements comments: Lives in [place]. Disabled brother lives with her and she helps care for him. Additional occupation/education comments: Works part-time at [employer]. Spiritual care concerns: No Meds Home Medications and Allergies Home Medications Medication Instructions Recorded Confirmed Type acetaminophen 650 mg 650 mg PO Q8H PRN pain #10 tabs 01/06/20 06/20/23 Rx tablet,extended release (Tylenol Arthritis Pain) albuterol sulfate 90 mcg/actuation 1 inh inhalation Q4H PRN shortness 07/19/22 06/20/23 Rx aerosol inhaler of breath or wheezing #18 grams atorvastatin 40 mg tablet See Rx Instructions .Route 12/19/22 06/20/23 Rx .COMPLEX #90 tabs bisoprolol fumarate 5 mg tablet See Rx Instructions .Route 12/19/22 06/20/23 Rx .COMPLEX #90 tabs losartan 100 mg tablet See Rx Instructions .Route 12/19/22 06/20/23 Rx .COMPLEX #90 tabs amlodipine 2.5 mg tablet 2.5 mg PO DAILY #90 tabs 01/01/23 06/20/23 Rx venlafaxine 75 mg capsule,extended See Rx Instructions .Route 01/04/23 06/20/23 Rx release 24 hr .COMPLEX #90 caps levothyroxine 75 mcg tablet See Rx Instructions .Route 02/11/23 06/20/23 Rx .COMPLEX #90 tabs lidocaine 5 % topical patch 1 patch topical DAILY PRN 04/08/23 06/20/23 History (Lidoderm) arthritic pain memantine 5 mg tablet (Namen
--- NOTE | 2023-06-28 12:10 | SUR.OPER ---
EGD COMPLETED AT 1209, COLONOSCOPY STARTED AT 1214
[2023-06-28 12:31] VITALS: BP 160/99; PULSE 67; RESP 16; O2SAT 100
[2023-06-28 12:41] VITALS: BP 180/99; PULSE 68; RESP 12; O2SAT 98
[2023-06-28 12:51] VITALS: BP 165/100; PULSE 61; RESP 21; O2SAT 96
== END 2023-06-28 13:02 | disposition home or self-care (01) ==
PROVIDERS: PCP Family Medicine; Visit Provider Internal Medicine Gastroenterology
PROC: 0DJ08ZZ Inspection of Upper Intestinal Tract, Via Natural or Artificial Opening Endoscopic (ICD-10-PCS; CPT 43235; principal; 2023-06-28 12:30)
DX: Z12.11 Encounter for screening for malignant neoplasm of colon (principal); K57.30 Diverticulosis of large intestine without perforation or abscess without bleeding; D12.4 Benign neoplasm of descending colon; K63.5 Polyp of colon; K21.00 Gastro-esophageal reflux disease with esophagitis, without bleeding; K44.9 Diaphragmatic hernia without obstruction or gangrene; K29.70 Gastritis, unspecified, without bleeding; Z87.19 Personal history of other diseases of the digestive system; I10 Essential (primary) hypertension; E03.9 Hypothyroidism, unspecified; E78.00 Pure hypercholesterolemia, unspecified; F41.9 Anxiety disorder, unspecified; J44.9 Chronic obstructive pulmonary disease, unspecified; D45 Polycythemia vera; Z87.891 Personal history of nicotine dependence; Z79.51 Long term (current) use of inhaled steroids
CPT/HCPCS: 45385; 43239; 88305; J2704; J7120

== ENCOUNTER 2023-07-09 10:18 | Emergency (ER) | payer OTHER, SELFPAY ==
[2023-07-09] VITALS (10 sets, daily range): BP systolic 126–144; BP diastolic 69–91; PULSE 59–69; RESP 16–17; TEMP 36.7; O2SAT 92–98
--- NOTE | 2023-07-09 12:02 | ED.GENADULT ---
HPI - General Adult General Chief complaint: Unspecified Stated complaint: hemmorrhoid attack Time Seen by Provider: 07/09/23 11:55 Source: patient Mode of arrival: ambulatory Limitations: no limitations History of Present Illness HPI narrative: 82-year-old female presents with complaint of hemorrhoids. She feels they are blocking ability to have a bowel movement although she does report that she had a bowel movement last night as well as this morning. She did have blood with her bowel movement on Saturday night. Of note, patient recently underwent colonoscopy and polypectomy on 06/28/2023. She notes that her bowel movements were brown but there was blood with wiping. She continues to pass flatus Saturday and yesterday though feels like she is passing less flatus today. She took 6 Metamucil and last night took a Dulcolax. She denies any abdominal pain today although she is having some nausea. She denies any rectal pain today. Related Data Home Medications Medication Instructions Recorded Confirmed lidocaine 5 % topical patch 1 patch topical DAILY PRN 04/08/23 06/20/23 (Lidoderm) arthritic pain memantine 5 mg tablet (Namenda) 5 mg PO BID 04/08/23 06/20/23 psyllium husk (with sugar) 3.4 1 tbsp PO DAILY 04/08/23 06/20/23 gram oral powder packet (Metamucil (with sugar)) omeprazole 40 mg capsule,delayed 40 mg PO DAILY 04/09/23 06/20/23 release Allergies Allergy/AdvReac Type Severity Reaction Status Date / Time No Known Allergies Allergy Verified 07/09/23 10:36 [facility] Past Medical History Medical History (Updated 07/09/23 @ 12:24 by Betina Foster MD) Anxiety disorder, unspecified 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 Chronic obstructive pulmonary disease Colon cancer screening Colonic polyp Diverticulosis of intestine without perforation or abscess without bleeding Essential hypertension Gastroesophageal reflux disease Hypothyroidism Osteoarthritis of left knee Patellofemoral arthritis of right knee Polycythemia vera Pure hypercholesterolemia Surgical History Surgical History (Updated 07/09/23 @ 12:22 by Betina Foster MD) History of breast biopsy History of cataract extraction History of colonoscopy 06/28/2023, Dr. Chong History of hemorrhoidectomy 2021, Dr. Thompson History of hysterectomy (2001) Family History Family History Sibling Family history of heart disease in male family member before age 55 Family history of chronic obstructive pulmonary disease Lung cancer Mother Family history of congestive heart failure Father Family history of heart disease in male family member before age 55 Family history of alcoholism, Onset Age: 47 Other Family history of Alzheimer's disease Grandparent Family history of cardiovascular disease Social History Social History Social History: Surrogate medical decision maker: brett Peraza. Code status: Full code. Smoking packs per day: 1 Smoking cigarettes per day: 20.0 Years smoked: 25 Smoking pack-years: 25.00 Smoking status: Former smoker Tobacco type: cigarettes Second hand tobacco smoke exposure: No Smoking end date: 04/08/92 Alcohol intake: current Drinks per week: 7 Substance use: never Substance use type: does not use Do You Feel Safe in your Home?: Yes Lack of Transportation: No Lack of Food: Never True Current Housing: I Have Housing Concerned About Future Housing: No Difficulty Paying Gas/Electric Bills: No Difficulty Paying for Meds: No Currently Unemployed: No Education: Don't Know Difficulty w/ Childcare or Family Care: No Living arrangements: with family Additional living arrangements comments: Lives in [place]. Disabled brother lives with her and she helps care for him. Additional occupation/education comments: Works part-time
[2023-07-09] MEDS: ONDANSETRON HCL ODT 4 MG TABLET PO (12:23)
--- NOTE | 2023-07-09 12:46 | PC.NURSE ---
This RN agrees with assessment and charting of SN Prosper.
== END 2023-07-09 12:53 | disposition home or self-care (01) ==
LOC: ANHED 12:21
PROVIDERS: Emergency Provider Student in an Organized Health Care Education/Training Program; PCP Family Medicine
DX: K64.4 Residual hemorrhoidal skin tags (principal); J44.9 Chronic obstructive pulmonary disease, unspecified; I10 Essential (primary) hypertension; E03.9 Hypothyroidism, unspecified; E78.00 Pure hypercholesterolemia, unspecified; K22.70 Barrett's esophagus without dysplasia; K21.9 Gastro-esophageal reflux disease without esophagitis; M17.0 Bilateral primary osteoarthritis of knee; D75.1 Secondary polycythemia; Z86.010 Personal history of colon polyps; Z87.891 Personal history of nicotine dependence; Z98.49 Cataract extraction status, unspecified eye; Z90.710 Acquired absence of both cervix and uterus
CPT/HCPCS: 99283; A9270

== ENCOUNTER 2023-10-01 11:30 | Outpatient (CLI) | payer OTHER, SELFPAY ==
--- NOTE | ~2023-10-01 | XR_ITS ---
Left Knee Technique: AP, lateral, and sunrise views were obtained. Clinical History: Pain COMPARISON: 02/12/2023 Findings: No fracture or dislocation is seen. Osseous alignment is anatomic. There is advanced degene rative change of the patellofemoral compartment with joint space narrowing. Medial lateral compartmen ts are intact. Soft tissues are unremarkable. No joint effusion is seen. Impression: Patellofemoral compartment degenerative change, as detailed above. Reviewed, dictated and finalized at location [facility]. Impression: Patellofemoral compartment degenerative change, as detailed above.
== END 2023-10-01 11:31 | disposition home or self-care (01) ==
LOC: ANHIMG 11:31
PROVIDERS: PCP Nurse Practitioner; Visit Provider Nurse Practitioner
DX: M17.12 Unilateral primary osteoarthritis, left knee (principal); W19.XXXA Unspecified fall, initial encounter
CPT/HCPCS: 73562

== ENCOUNTER 2023-12-02 22:10 | Emergency (ER) | payer OTHER, SELFPAY ==
[2023-12-02 22:13] VITALS: BP 128/72; PULSE 64; RESP 17; TEMP 36.6; O2SAT 96
--- NOTE | 2023-12-02 23:44 | PC.NURSE ---
pt wheeled to exit by nephew. no distress noted.
== END 2023-12-03 00:17 | disposition left against medical advice (07) ==
LOC: ANHED 12-03 00:06
PROVIDERS: PCP Nurse Practitioner
DX: S00.03XA Contusion of scalp, initial encounter (principal); X58.XXXA Exposure to other specified factors, initial encounter
CPT/HCPCS: 99199

== ENCOUNTER 2023-12-03 00:14 | Emergency (ER) | payer OTHER, SELFPAY ==
--- NOTE | ~2023-12-03 | CT_ITS ---
CT head without contrast Indication: Status post fall Technique: Serial scans were obtained through the brain without the administration of contrast. Dose reduction technique was used on this scan by utilizing automated exposure control and iterative recon struction technique. The dose-length product (DLP) was 605.33 mGy-cm. Findings: There is no evidence of intracranial hemorrhage, mass lesion, or acute infarct. The ventri cles and subarachnoid spaces are dilated, consistent with mild atrophy. Low attenuation regions are seen within the periventricular white matter bilaterally, likely representing changes from chronic mi crovascular ischemic disease. There is no evidence of edema, mass effect or midline shift. The visu alized paranasal sinuses and mastoid air cells are clear. Mild soft tissue swelling at the left parietal scalp. Impression: No intracranial hemorrhage, mass, or acute infarct. Atrophy and chronic white matter changes, as above. Mild soft tissue swelling of the left parietal scalp. Reviewed, dictated and finalized at [facility]. Impression: No intracranial hemorrhage, mass, or acute infarct. Atrophy and chronic white matter changes, as above. Mild soft tissue swelling of the left parietal scalp.
--- NOTE | ~2023-12-03 | CT_ITS ---
Noncontrast CT scan of the cervical spine Technique: Multiple contiguous axial [address] images of the cervical spine were obtained and rec onstructed in 2D sagittal and coronal planes on the acquisition scanner. Dose reduction technique was used on this scan by utilizing automated exposure control, adjustment of the mA and/or kV according to patient size. The dose-length product (DLP) was 361.33 mGy-cm. Clinical History: Pain Findings: No acute fracture seen. There is 4 mm anterolisthesis of C4 over C5. There is severe degene rative disc narrowing from C3 through C7. There are extensive facet joint degenerative changes. Proba ble mild bilateral neural foraminal narrowing at C2-C3 and C3-C4. There is significant left neural fo raminal narrowing at C4-C5. There is right neural foraminal narrowing at C5-C6. There is bilateral ne ural foraminal narrowing at C6-C7. No prevertebral soft tissue swelling. Impression: No acute fracture. 4 mm anterolisthesis of C4-C5. Moderate to severe degenerative spondylitic changes, as above. Reviewed, dictated and finalized at location M. Impression: No acute fracture. 4 mm anterolisthesis of C4-C5. Moderate to severe degenerative spondylitic changes, as above.
--- NOTE | ~2023-12-03 | CT_ITS ---
Non-contrast CT scan of the Pelvis Clinical indication: Status post fall Technique: 2.5 mm axial scans were obtained through the pelvis without intravenous or oral contrast. Dose reduction technique was used on this scan by utilizing automated exposure control and iterative reconstruction technique. The dose-length product (DLP) was 491.14 mGy-cm. Findings: There are atherosclerotic of septations the aorta and iliac vessels. Visualized bowel loops are unremarkable. No ascites identified. Urinary bladder unremarkable. Status post hysterectomy. No pelvic mass seen. No fracture or dislocation is identified. Bilateral hip joint spaces are intact. SI joints are intact . No soft tissue mass or hematoma identified. Impression: No acute abnormality. No fracture or dislocation seen. Reviewed, dictated and finalized at location . Impression: No acute abnormality. No fracture or dislocation seen.
--- NOTE | ~2023-12-03 | CT_ITS ---
Noncontrast CT scan of the lumbar spine CLINICAL HISTORY: Status post fall TECHNIQUE: Axial noncontrast imaging of the lumbar spine was performed. Sagittal and coronal reformat mayito images were constructed. Dose reduction technique was used on this scan by utilizing automated ex posure control and iterative reconstruction technique. The dose-length product (DLP) was 1038.65 mGy- cm. FINDINGS: There is no fracture or subluxation of the lumbar spine. Vertebral bodies maintain normal h eight and alignment. At L1-L2, there is severe degenerative disc narrowing. There is minimal disc bulge and mild facet art hropathy. No central canal stenosis or definite neural foraminal narrowing. At L2-L3, there is severe degenerative disc narrowing. There is minimal disc bulge and mild facet art hropathy. No central canal stenosis. Probable minimal bilateral neural foraminal narrowing. L3-L4, there is advanced degenerative disc change. There is diffuse disc bulge and moderate facet art hropathy, with probable moderate central canal stenosis/thecal sac compression. There is mild bilater al neural foraminal narrowing. At L4-L5, there is diffuse disc bulge and moderate facet arthropathy, probable mild to moderate centr al canal stenosis/thecal sac compression. There is moderate to advanced right neural foraminal narrow ing, and moderate left neural foraminal narrowing. At L5-S1, there is advanced degenerative disc narrowing. There is diffuse disc bulge and moderate fac et arthropathy. Possible minimal central canal stenosis. There is moderate to advanced bilateral neur al foraminal narrowing. Paravertebral soft tissues are unremarkable. Impression: No fracture or subluxation. 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 Reviewed, dictated and finalized at [facility]. Impression: No fracture or subluxation. 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
--- NOTE | ~2023-12-03 | CT_ITS ---
Noncontrast CT scan of the thoracic spine CLINICAL HISTORY: Status post fall TECHNIQUE: Axial noncontrast imaging of the thoracic spine was performed. Sagittal and coronal reform atted images were constructed. Dose reduction technique was used on this scan by utilizing automated exposure control and iterative reconstruction technique. The dose-length product (DLP) was 1180.51 mG y-cm. FINDINGS: No acute fracture or subluxation seen in the thoracic spine. Vertebral bodies maintain norm al height and alignment. There are mild degenerative disc changes throughout the thoracic spine. No significant disc bulge or herniation evident. No definite canal stenosis or cord compression ident ified. No definite neural foraminal narrowing seen. Paravertebral soft tissues are unremarkable. Small calcified gallstone present. There are atheroscler otic calcifications of the aorta. Impression: No acute fracture or subluxation. Mild degenerative changes. Reviewed, dictated and finalized at [facility]. Impression: No acute fracture or subluxation. Mild degenerative changes.
[2023-12-03 00:16] VITALS: BP 172/94; PULSE 62; RESP 18; TEMP 36.1; O2SAT 100
--- NOTE | 2023-12-03 00:30 | ED.FALL ---
HPI - Fall General Chief Complaint: Fall Stated Complaint: Fall Time Seen by Provider: 12/03/23 00:23 Source: patient and family History of Present Illness HPI Narrative: patient fell backward after going up to 3 steps, While carrying laundry in her hands.no loss of consciousness, complaining of skin tears of the 4 arm a bilaterally, also occipital pain and tailbone pain. Patient is not on anti-platelet or anticoagulant medications. Patient came for hours after the fall. Related Data Home Medications Medication Instructions Recorded Confirmed lidocaine 5 % topical patch 1 patch topical DAILY PRN 04/08/23 11/27/23 (Lidoderm) arthritic pain psyllium husk (with sugar) 3.4 1 tbsp PO DAILY 04/08/23 11/27/23 gram oral powder packet (Metamucil (with sugar)) Allergies Allergy/AdvReac Type Severity Reaction Status Date / Time No Known Allergies Allergy Verified 11/27/23 09:10 Review of Systems Review of Systems: All systems reviewed & are unremarkable except as noted in HPI and below PMFSH Past Medical History Medical History Anxiety disorder, unspecified 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 Chronic obstructive pulmonary disease Colon cancer screening Colonic polyp Diverticulosis of intestine without perforation or abscess without bleeding Essential hypertension Gastroesophageal reflux disease Hypothyroidism Osteoarthritis of left knee Patellofemoral arthritis of right knee Polycythemia vera Pure hypercholesterolemia Surgical History Surgical History History of breast biopsy History of cataract extraction History of colonoscopy 06/28/2023, Dr. Chong History of hemorrhoidectomy 2021, Dr. Thompson History of hysterectomy (2001) Family History Family History Sibling Family history of heart disease in male family member before age 55 Family history of chronic obstructive pulmonary disease Lung cancer Mother Family history of congestive heart failure Father Family history of heart disease in male family member before age 55 Family history of alcoholism, Onset Age: 47 Other Family history of Alzheimer's disease Grandparent Family history of cardiovascular disease Social History Social History Social History: Surrogate medical decision maker: Tomasa Tai, niece. Code status: Full code. Smoking packs per day: 1 Smoking cigarettes per day: 20.0 Years smoked: 25 Smoking pack-years: 25.00 Smoking status: Former smoker Tobacco type: cigarettes Second hand tobacco smoke exposure: No Smoking end date: 04/08/92 Alcohol intake: current Drinks per week: 7 Substance use: never Substance use type: does not use Do You Feel Safe in your Home?: Yes Lack of Transportation: No Lack of Food: Never True Current Housing: I Have Housing Concerned About Future Housing: No Difficulty Paying Gas/Electric Bills: No Difficulty Paying for Meds: No Currently Unemployed: No Education: Don't Know Difficulty w/ Childcare or Family Care: No Living arrangements: with family Additional living arrangements comments: Lives in [place]. Disabled brother lives with her and she helps care for him. Additional occupation/education comments: Works part-time at [employer]. Spiritual care concerns: No Exam Narrative: General appearance: Well-developed, well-nourished Skin: Extensive bruises of the upper extremities, old, skin tears of the for arm bilaterally with missing skin Head: Normocephalic, occipital tenderness, lump Eyes: Clear conjunctiva ENT: Oropharynx normal, ears normal, nose normal Neck: Supple, nontender Chest and respiratory: Airway patent, no respiratory distress, no accessory muscle use Heart: Regular rate/rhythm Abdo
[2023-12-03] MEDS: IBUPROFEN 400 MG TABLET PO (01:01)
[2023-12-03] MEDS: ACETAMINOPHEN 325 MG TABLET 650 MG PO (01:01)
[2023-12-03 01:54] VITALS: BP 167/76; PULSE 75; RESP 18; TEMP 36.6; O2SAT 97
== END 2023-12-03 01:54 | disposition home or self-care (01) ==
PROVIDERS: Emergency Provider Emergency Medicine; PCP Nurse Practitioner
DX: S09.90XA Unspecified injury of head, initial encounter (principal); S51.812A Laceration without foreign body of left forearm, initial encounter; S51.811A Laceration without foreign body of right forearm, initial encounter; I10 Essential (primary) hypertension; E03.9 Hypothyroidism, unspecified; Z87.891 Personal history of nicotine dependence; W10.9XXA Fall (on) (from) unspecified stairs and steps, initial encounter
CPT/HCPCS: 70450; 72125; 72128; 72131; 72192; 99284; A9270

== ENCOUNTER 2023-12-27 08:33 | Outpatient (CLI) | payer OTHER, SELFPAY ==
[2023-12-27 09:11] LABS: Alanine Aminotransferase 19 U/L (6-35); Albumin Level 3.7 g/dL (3.5-5.1); Alkaline Phosphatase 116 U/L (38-126); Anion Gap 8 mmol/L (4-12); Aspartate Amino Transferase 24 U/L (14-36); Bilirubin,Total 0.5 mg/dL (0.2-1.3); Blood Urea Nitrogen 23 mg/dL (7-17); Calcium 9.1 mg/dL (8.4-10.2); Carbon Dioxide 27 mmol/L (22-30); Chloride 105 mmol/L (98-107); Cholesterol 181 mg/dL (0-200); Estimated Glomerular Filt Rate > 60; Glucose 91 mg/dL (65-110); HDL Direct 77 mg/dL; Potassium 3.7 mmol/L (3.4-5.0); Sodium 140 mmol/L (137-145); Triglycerides 65 mg/dL (<150)
[2023-12-27 09:22] LABS: LDL Cholesterol Direct 92 mg/dL
== END 2023-12-27 08:34 | disposition home or self-care (01) ==
PROVIDERS: PCP Nurse Practitioner; Visit Provider Nurse Practitioner
DX: E78.5 Hyperlipidemia, unspecified (principal); E03.9 Hypothyroidism, unspecified
CPT/HCPCS: 36415; 80053; 80061; 84443

== ENCOUNTER 2024-01-09 07:14 | Outpatient (RCR) | payer OTHER, SELFPAY ==
[2023-12-19 09:00] VITALS: BMI 27.3
--- NOTE | 2024-01-02 09:39 | PCWOUND ---
Addendum entered by Mona Lang RN 01/02/24 10:27: Patient came to wound center at 0930, apologized that she put the appointment in her phone as 0930 not 0900. Patient was seen and wound assessed, clinic note was faxed to PCP office. Original Note: WOCN NOTE Patient did not show up for appointment.
== END 2024-03-09 08:10 | disposition home or self-care (01) ==
LOC: ANHWOC 07:14
PROVIDERS: PCP Nurse Practitioner; Visit Provider Nurse Practitioner
DX: S51.812A Laceration without foreign body of left forearm, initial encounter (principal); Z48.00 Encounter for change or removal of nonsurgical wound dressing
CPT/HCPCS: 99212; 99213; G0463

== ENCOUNTER 2024-02-15 08:43 | Outpatient (CLI) | payer OTHER, SELFPAY ==
[2024-02-15 09:32] LABS: Free T4 Free Thyroxine 1.27 ng/mL (0.78-2.19)
== END 2024-02-15 08:44 | disposition home or self-care (01) ==
LOC: ANHLAB 08:45
PROVIDERS: PCP Nurse Practitioner; Visit Provider Nurse Practitioner
DX: E03.9 Hypothyroidism, unspecified (principal)
CPT/HCPCS: 36415; 84439; 84443

== ENCOUNTER 2024-06-25 09:04 | Emergency (ER) | payer OTHER, SELFPAY ==
--- NOTE | ~2024-06-25 | XR_ITS ---
XR foot RT min 3V Ordering provider: Yris Bella MD History: . Nontraumatic pain, right medial foot pain . Comparison: None. FINDINGS: BONES: Hallux valgus. No acute fracture or dislocation. JOINT SPACES: Narrowing of the first tarsal phalangeal joint. Narrowing of the proximal and distal in terphalangeal joints suggestive of osteoarthritic changes. Narrowing of the tarsometatarsal joints. N o tarsal coalition. SOFT TISSUES: Normal. Calcaneal spur. IMPRESSION: No acute osseous abnormality of the right foot. Polyarticular osteoarthritic changes. Reviewed, dictated and finalized at location A.
[2024-06-25 09:13] VITALS: BP 165/88; PULSE 67; RESP 16; TEMP 36.6; O2SAT 97
--- NOTE | 2024-06-25 09:17 | ED.EXTPRO ---
HPI - Extremity Problem General Chief complaint: Extremity Problem,Nontraumatic Stated complaint: R FOOT PAIN NO INJURY Time Seen by Provider: 06/25/24 09:16 Source: patient Mode of arrival: ambulatory Limitations: no limitations History of Present Illness HPI Narrative: 83 years old white female came to the ED from home by private car complaining of pain at the foot medially started this morning. In the last 2 days patient been doing quite a bit of activity and work at the backyard. She denies any trauma, fever, chills or radiation of pain. Patient report get worse with palpation, standing does not make it worse Related Data Home Medications ?Medication ?Instructions ?Recorded ?Confirmed ?Last Taken ?Type lidocaine 5 % topical patch 1 patch topical DAILY PRN 04/08/23 03/16/24 Unknown History (Lidoderm) arthritic pain psyllium husk (with sugar) 3.4 1 tbsp PO DAILY 04/08/23 03/16/24 Unknown History gram oral powder packet (Metamucil (with sugar)) Allergies Allergy/AdvReac Type Severity Reaction Status Date / Time No Known Allergies Allergy Verified 06/25/24 09:16 Review of Systems Review of Systems: All systems reviewed & are unremarkable except as noted in HPI and below PMFSH Past Medical History Medical History Colonic polyp Diverticulosis of intestine without perforation or abscess without bleeding Colon cancer screening Gastroesophageal reflux disease Hypothyroidism Osteoarthritis of left knee Anxiety disorder, unspecified 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 Chong History of cataract extraction History of breast biopsy History of hemorrhoidectomy 2021, Dr. Thompson History of hysterectomy (2001) Family History Family History Sibling Family history of heart disease in male family member before age 55 Family history of chronic obstructive pulmonary disease Lung cancer Mother Family history of congestive heart failure Father Family history of heart disease in male family member before age 55 Family history of alcoholism, Onset Age: 47 Other Family history of Alzheimer's disease Grandparent Family history of cardiovascular disease Social History Social History Social History: Surrogate medical decision maker: Tomasa Lujan, niece. Code status: Full code. Smoking packs per day: 1 Smoking cigarettes per day: 20.0 Years smoked: 25 Smoking pack-years: 25.00 Smoking status: Former smoker Tobacco type: cigarettes Second hand tobacco smoke exposure: No Smoking end date: 04/08/92 Alcohol intake: current Drinks per week: 7 Substance use: never Substance use type: does not use Do You Feel Safe in your Home?: Yes Lack of Transportation: No Lack of Food: Never True Current Housing: I Have Housing Concerned About Future Housing: No Difficulty Paying Gas/Electric Bills: No Difficulty Paying for Meds: No Currently Unemployed: No Education: Don't Know Difficulty w/ Childcare or Family Care: No Living arrangements: with family Additional living arrangements comments: Lives in [place]. Disabled brother lives with her and she helps care for him. Additional occupation/education comments: Works part-time at [employer]. Spiritual care concerns: No Exam Narrative: General appearance: Well-developed, well-nourished Skin: Normal color Head: Normocephalic, nontraumatic Eyes: Clear conjunctiva ENT: Oropharynx normal, ears normal, nose normal Neck: Supple, nontender Chest and respiratory: Airway patent, no respiratory distress, no accessory muscle use Heart: Regular rate/rhythm Abdomen: Soft, nontender, no organomegaly, quiet bowel sounds Vascular: Normal peripheral pulses, normal capillary refill. Musculoskeletal: Right foot exam showed localized tenderness at the mid foot medially, no bruises, no swelling, no deformity worse with movement and palpation Neurologic: Alert and oriented ?3, LEAD PROJECT ENGINEER is normal as tested, no gross motor deficit Course Vital Signs Vital signs: Vital Signs Temperature 36.6 C 06/25/24 09:13 Pulse Rate 67 06/25/24 09:13 Respiratory Rate 16 06/25/24 09:13 Blood Pressure 165/88 H 06/25/24 09:13 Pulse Oximetry 97 06/25/24 09:13 Oxygen Delivery Room Air 06/25/24 09:13 Temperature 36.6 C 06/25/24 09:13 Pulse Rate 67 06/25/24 09:13 Respiratory Rate 16 06/25/24 09:13 Blood Pressure 165/88 H 06/25/24 09:13 Pulse Oximetry 97 06/25/24 09:13 Oxygen Delivery Room Air 06/25/24 09:13 MDM - Extremity (Nontraumatic) MDM Narrative Medical decision making narrative: Patient presents with nontraumatic right foot pain Vital signs are stable Physical examination showing localized tenderness of the left foot medially without any significant other physical findings X-ray of the right foot showed no acute osseous abnormality. Strain/sprain of the right foot secondary to back yd work is my concern. To take Tylenol, ibuprofen as needed, keep leg elevated and avoid aggravating factors Differential Diagnosis Differential diagnosis: Likely other (As above) Imaging Data Radiologist's impression: Impressions Foot X-Ray 06/25/24 09:47 IMPRESSION: No acute osseous abnormality of the right foot. Polyarticular osteoarthritic changes. Critical Care Time Critical Care Time Critical Care Time: No Discharge Plan Discharge Clinical Impression: Muscle strain of right foot Patient Disposition: Home, Self-Care Condition: Stable Instructions: Foot Sprain (ED) Additional Instructions: Return if symptoms are worsening , call your family physician for appointment, take, ibuprofen Tylenol as as needed for aches and pain, continue home medications., keep right foot elevated, Patient Language: Samoan Prescriptions: No Action albuterol sulfate 90 mcg/actuation HFA aerosol inhaler 1 inh INHALATION Q4H PRN (Reason: shortness of breath or wheezing) Qty: 18 2RF acetaminophen [Tylenol Arthritis Pain] 650 mg tablet extended release 650 mg PO Q8H PRN (Reason: pain) Qty: 10 0RF lidocaine [Lidoderm] 5 % adhesive patch,medicated 1 patch topical DAILY PRN (Reason: arthritic pain) Rx Instructions: leave on most painful area for up to 12 hrs. bilateral knees or back. Metamucil (with sugar) 3.4 gram powder in packet 1 tbsp PO DAILY ondansetron 4 mg tablet,disintegrating 4 mg PO Q8H PRN (Reason: nausea and vomiting) Qty: 7 0RF fluticasone furoate-vilanterol [Breo Ellipta] 200-25 mcg/dose blister with device See Rx Instructions .ROUTE .COMPLEX Qty: 60 1RF Dose Instruction: INHALE 1 PUFF BY MOUTH DAILY Rx Instructions: INHALE 1 PUFF BY MOUTH DAILY potassium chloride 10 mEq tablet extended release See Rx Instructions .ROUTE .COMPLEX Qty: 90 1RF Dose Instruction: TAKE 1 TABLET BY MOUTH EVERY DAY Rx Instructions: TAKE 1 TABLET BY MOUTH EVERY DAY omeprazole 40 mg capsule,delayed release(DR/EC) 40 mg PO DAILY Qty: 90 1RF memantine 5 mg tablet 5 mg PO BID Qty: 180 1RF bisoprolol fumarate 5 mg tablet See Rx Instructions .ROUTE .COMPLEX Qty: 90 1RF Dose Instruction: TAKE 1 TABLET BY MOUTH EVERY DAY Rx Instructions: TAKE 1 TABLET BY MOUTH EVERY DAY venlafaxine 75 mg capsule,extended release 24hr See Rx Instructions .ROUTE .COMPLEX Qty: 90 1RF Dose Instruction: TAKE 1 CAPSULE BY MOUTH EVERY DAY Rx Instructions: TAKE 1 CAPSULE BY MOUTH EVERY DAY levothyroxine 88 mcg tablet 88 mcg PO DAILY Qty: 90 1RF amlodipine 2.5 mg tablet 2.5 mg PO DAILY Qty: 90 1RF atorvastatin 40 mg tablet See Rx Instructions .ROUTE .COMPLEX Qty: 90 1RF Dose Instruction: TAKE 1 TABLET BY MOUTH EVERY DAY Rx Instructions: TAKE 1 TABLET BY MOUTH EVERY DAY losartan 100 mg tablet See Rx Instructions .ROUTE .COMPLEX Qty: 90 1RF Dose Instruction: TAKE 1 TABLET BY MOUTH EVERY DAY Rx Instructions: TAKE 1 TABLET BY MOUTH EVERY DAY Follow-up/Referrals: Tayo Marie APRN [Primary Care Provider] -
--- OUTSIDE RECORDS SUMMARY | 2024-06-25 09:23 | XMS_ITS | Encounter Summary ---
Author Organization [employer] Address [address] [place] [address] Care Team Providers Care Wood Carver Name Role Phone Gunnar Plummer MD, Abdi Murphy Primary Care Provid er Encounter Details Date Type Department Care Team (Late st Contact Info) Description 07/14/[address] [address] 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
--- OUTSIDE RECORDS SUMMARY | 2024-06-25 09:23 | XMS_ITS | Clinical Summary ---
Author Organization [facility] [address] Address [address] [place] [address] Care Team Providers Care Rn Navigator Name Role Phone Dhiraj Sinha MD Primary Care Provider [phone] [phone] Allergies No known active allergies Medications amLODIPine (NORVASC) 2.5 mg tablet Take 1 tablet (2.5 mg total) by mouth daily 07/06/19 23 Active atorvastatin (LIPITOR) 40 mg tablet Take 1 tablet (40 mg total) by mouth daily 06/14/19 23 Active bisoprolol (ZEBETA) 5 mg tablet 07/10/19 23 Active Breo Ellipta 200-25 mcg/dose diskus inhaler 1 puff daily 06/19/19 23 Active hydroCHLOROthi azide (HYDRODIURIL) 25 mg tablet 02/14/2016Hydrochloro thiazide, po solid 25 mg TabletPOas directedCurrent Medication 02/14/20 16 Active levothyroxine (SYNTHROID) 75 mcg tablet Take 1 tablet (75 mcg total) by mouth daily 07/03/19 23 Active losartan (COZAAR) 25 mg tablet 02/14/2016Losartan potassium, po solid 25 mg TabletPOBIDCurrent Medication 02/14/20 16 Active memantine (NAMENDA) 5 mg tablet START WITH ONE TABLET BY MOUTH DAILY FOR 7 DAYS, THEN GO TO 1 TABLET BY MOUTH TWICE DAILY 06/14/19 23 Active omeprazole (PriLOSEC) 40 mg capsule 07/10/19 23 Active venlafaxine XR (EFFEXOR-XR) 75 mg 24 hr capsule Take by mouth daily 06/30/19 23 Active predniSONE (DELTASONE) 10 mg tablet Take 5 tabs (50mg) daily for 2 days, then take 4 tabs (40mg) daily for 2 days. Continue to decrease by 1 tab (10mg) every 2 days until gone. 30 tablet 08/31/19 Active triamcinolone (KENALOG) 0.1 % cream Apply to affected area 1-2 times daily as needed. Avoid face and groin. 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 Gender Identity Not on file Sexual Orientation Not on file Obstetrics History Last Filed Vital Signs Vital Sign Reading Time Taken Comments Blood Pressure 122/74 08/30/2022 10:54 AM CDT Pulse 63 08/30/2022 10:54 AM CDT Temperature 37 C (98.6 F) 08/30/2022 10:54 AM CDT Respiratory Rate 20 08/30/2022 10:54 AM CDT Oxygen Saturation 96% 08/30/2022 10:54 AM CDT Inhaled Oxygen Concentration - - Weight 67.7 kg (149 lb 3.2 oz) 08/30/2022 10:54 AM CDT Height 152.4 cm (5') 08/30/2022 10:54 AM CDT Body Mass Index 29.14 08/30/2022 10:54 AM CDT Plan of Treatment Health Maintenance Due Date Last Done Comments Depression Screening 1942 Fall Risk Assessment 1942 Osteoporosis Screening-Bone Density Scan 1942 DTaP/Tdap/Td Vaccine (1 - Tdap) 1953 Hepatitis B Screening 1960 Pneumococcal vaccine 65+ (1 of 1 - PCV) 1992 Well Visit 65+ 11/29/2007 Zoster Vaccine (2 of 3) 04/10/2016 02/14/2016 Covid-19 Vaccine (4 - 2023-2 5 season) 2023 06/02/2021, 06/12/2020, 05/22/2020 Influenza Vaccine (#1) 2023 2, 06/02/2021, 01/14/2020, Additional history exists Insurance [facility] Care Teams Rn Navigator Relationship Specialty Start Date End Date Dhiraj Sinha MD PCP - General Internal Medicine 07/17/22
--- OUTSIDE RECORDS SUMMARY | 2024-06-25 09:23 | XMS_ITS | Encounter Summary ---
Author Organization [employer] Address 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
--- OUTSIDE RECORDS SUMMARY | 2024-06-25 09:23 | XMS_ITS | Clinical Summary ---
[facility] Address [address] [place] [address] Care Team Providers Care Certified Welder Name Role Phone Gunnar Plummer MD, Abdi Murphy Primary Care [facility] Allergies No known active allergies Medications losartan (COZAAR) 100 mg tablet Take 100 mg by mouth daily. 2 Active omeprazole (PriLOSEC) 40 mg Capsule, Delayed Release(E.C.) omeprazole 40 mg capsule,delayed release TAKE 1 CAPSULE BY MOUTH EVERY DAY Active atorvastatin (LIPITOR) 40 mg tablet atorvastatin 40 mg tablet TAKE 1 TABLET BY MOUTH EVERY DAY Active venlafaxine (EFFEXOR XR) 75 mg Extended Release 24 hour capsule venlafaxine ER 75 mg capsule,extended release 24 hr TAKE 1 CAPSULE BY MOUTH EVERY DAY Active aspirin 81 mg Capsule every 24 hours. Acti ve albuterol sulfate 90 mcg/Actuation inhaler albuterol sulfate HFA 90 mcg/actuation aerosol inhaler INHALE 1 PUFF BY MOUTH EVERY 4 HOURS NEEDED FOR SHORTNESS OF BREATH OR WHEEZING Active bisoprolol (ZEBETA) 5 mg tablet bisoprolol fumarate 5 mg tablet TAKE 1 TABLET BY MOUTH ONCE DAILY Active amLODIPine (NORVASC) 2.5 mg tablet amlodipine 2.5 mg tablet TAKE 1 TABLET BY MOUTH DAILY Active levothyroxine 75 mcg tablet levothyroxine 75 mcg tablet TAKE 1 TABLET BY MOUTH ONCE DAILY 2 Active Active Problems Problem Noted Date Diagnosed Date Monocytosis 12/19/2021 Family History Medical History Relation Name Comments Heart Disease Brother 1 Heart Disease Father Heart Disease Mother Heart Disease Sister Relation Name Status Comments Brother 1 Brother 2 Alive Father Mother Sister Alive Social History Tobacco Use Types Packs/Day Years Used Date Smoking Tobacco: Never Assessed Comments Unknown Sex and Gender Information Value Date Recorded Sex Assigned at Not on file 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 Gender Identity Not on file Sexual Orientation Not on file Last Filed Vital Signs Vital Sign Reading Time Taken Comments Blood Pressure 166/88 01/12/2022 9:51 AM CDT Pulse 60 01/12/2022 9:51 AM CDT Temperature 36.5 C (97.7 F) 01/12/2022 9:51 AM CDT Respiratory Rate 20 01/12/2022 9:51 AM CDT Oxygen Saturation 100% 01/12/2022 9:51 AM CDT Inhaled Oxygen Concentration - - Weight 66.5 kg (146 lb 8 oz) 01/12/2022 9:51 AM CDT Height 152.4 cm (5') 12/19/2021 11:09 AM CDT Body Mass Index 28.61 12/19/2021 11:09 AM CDT Plan of Treatment Health Maintenance Due Date Last Done Comments DTAP/TDAP/TD VACCINES (1 - Tdap) 1961 PNEUMOCOCCAL VACCINE 50+ YEARS (1 of 1 - PCV) 11/28/18 93 ZOSTER VACCINE (1 of 2) 1992 OSTEOPOROSIS SCREENING 11/29/2007 RSV VACCINE (60+ or ) (1 - 1-dose 75+ series) 2017 INFLUENZA VACCINE (#1) [address] [place] [address] Care Teams Certified Welder Relationship Specialty Start Date End Date Gunnar Plummer, Abdi Murphy MD [address] [place] [address] [address] [place] [address] PCP - General 07/22/02
--- OUTSIDE RECORDS SUMMARY | 2024-06-25 09:23 | XMS_ITS | Clinical Summary ---
Author Organization [facility] Address [address] [place] [address] Care Team Providers Care Codifier Name Role Phone Marina Barnett NP Primary Care Provider [phone] Social History Tobacco Use Types Packs/Day Years Used Date Smoking Tobacco: Never Assessed Comments Unknown Sex and Gender Information Value Date Recorded Sex Assigned at Not on file Legal Sex Female 12:19 PM CDT Gender Identity Not on file Sexual Orientation Not on file Plan of Treatment Upcoming Encounters Date Type Department Care Team (Late st Contact Info) Description 07/09/2024 10:20 AM CDT Office Visit [facility] [place] [address] [place] [address] Marina Barnett, LICENSED RETAIL SUPERVISOR [address] [place] [address] Health Maintenance Due Date Last Done Comments DTaP, Tdap and Td Vaccines ( 1 - Tdap) 1961 Zoster Vaccines (1 of 2) 1992 Dexa Scan (General) 11/29/2007 Pneumococcal Vaccine: 65+ Ye ars (1 of 1 - PCV) 11/29/2007 RSV Immunization or 60+ Years (1 - 1-dose 75+ series) 2017 COVID-19 Vaccine ( - 2023-2 5 season) 2023 Influenza Adult (#1) 2024 Meningococcal B Vaccine Aged Out No l onger eligible based on patient's age to complete this topic Meningococcal Vaccine Aged Out No rita crow eligible based on patient's age to complete this topic RSV Immunizations Under 20 Months Aged Out No longer eligible based on patient's age to complete this topic Insurance [employer] Care Teams Codifier Relationship Specialty Start Date End Date Marina Barnett, LICENSED RETAIL SUPERVISOR [address] [place] [address] PCP - General NURSE PRACTITIONER 06/25/24
--- OUTSIDE RECORDS SUMMARY | 2024-06-25 09:23 | XMS_ITS | Referral Summary ---
Author Organization [facility] [address] Address [address] [place] [address] Care Team Providers Care Safety Specialist Name Role Phone Dhiraj Sinha MD Primary Care Provider [phone] [phone] Allergies No known active allergies Medications amLODIPine [...] Avoid face and groin. 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
--- OUTSIDE RECORDS SUMMARY | 2024-06-25 09:59 | XMS_ITS | Encounter Summary ---
Author Organization [employer] Address [address] [place] [address] Care Team Providers Care Formula Weigher Name Role Phone Gunnar Plummer MD, Abdi [...] on file Legal Sex Female 3:03 AM CASE FILLER Gender Identity Not on file Sexual Orientation Not on file documented as of this encounter Plan of Treatment Not on file documented as of this encounter Visit Diagnoses Diagnosis Submucous leiomyoma of uterus- Primary documented in this encounter Care Teams Formula Weigher Relationship Specialty Start Date End Date Abdi Maher Jr., MD [address] [place] [address] PCP - General 07/22/02 documented as of this encounter
--- OUTSIDE RECORDS SUMMARY | 2024-06-25 09:59 | XMS_ITS | Clinical Summary ---
Author Organization [facility] Address [address] [place] [address] Care Team Providers Care Psychiatric Nursing Aide Name Role Phone Marina Barnett NP Primary Care Provider [phone]- [phone] Social History Tobacco Use Types Packs/Day Years [...] Description 07/09/2024 10:20 AM CDT Office Visit [facility] [place] [address] [place] [address] Marina Barnett, HAND EDGE BANDER [address] [place] [address] Health Maintenance Due Date Last Done Comments [...] complete this topic Insurance [employer] Care Teams Psychiatric Nursing Aide Relationship Specialty Start Date End Date Marina Barnett, HAND EDGE BANDER [address] [place] [address] PCP - General NURSE PRACTITIONER 06/25/24
--- OUTSIDE RECORDS SUMMARY | 2024-06-25 09:59 | XMS_ITS | Clinical Summary ---
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 Care Teams General Internal Medicine Doctor Relationship Specialty Start Date End Date Dhiraj Sinha MD PCP - General Internal Medicine 07/17/22
--- OUTSIDE RECORDS SUMMARY | 2024-06-25 09:59 | XMS_ITS | Referral Summary ---
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
--- OUTSIDE RECORDS SUMMARY | 2024-06-25 09:59 | XMS_ITS | Clinical Summary ---
[facility] Address 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
--- OUTSIDE RECORDS SUMMARY | 2024-06-25 09:59 | XMS_ITS | Encounter Summary ---
Author Organization [employer] Address [address] [place] [address] Care Team Providers Care Furnace Installer Name Role Phone Gunnar Plummer MD, Abdi Murphy Primary Care Provid er Encounter Details Date Type Department Care Team (Late st Contact Info) Description 07/14/[address] [facility] ([facility]) [address] [place] [address] Davey Barnes Social History Tobacco Use Types Packs/Day Years Used Date Smoking Tobacco: Never Assessed Comments Unknown Sex and Gender Information Value Date Recorded Sex Assigned at Not on file Legal Sex Female 3:03 AM RN OR LVN Gender Identity Not on file Sexual Orientation Not on file documented as of this encounter Plan of Treatment Not on file documented as of this encounter Visit Diagnoses Not on filedocumented in this encounter Care Teams Furnace Installer Relationship Specialty Start Date End Date Abdi Maher Jr., MD [address] [facility] [address] [place] [address] PCP - General 07/22/02 documented as of this encounter
[2024-06-25 10:45] VITALS: BP 171/83; PULSE 60; RESP 14; TEMP 36.9; O2SAT 100
== END 2024-06-25 10:46 | disposition home or self-care (01) ==
PROVIDERS: Emergency Provider Emergency Medicine; PCP Nurse Practitioner
DX: S96.911A Strain of unspecified muscle and tendon at ankle and foot level, right foot, initial encounter (principal); K21.9 Gastro-esophageal reflux disease without esophagitis; E03.9 Hypothyroidism, unspecified; F41.9 Anxiety disorder, unspecified; I10 Essential (primary) hypertension; E78.00 Pure hypercholesterolemia, unspecified; Z87.891 Personal history of nicotine dependence
CPT/HCPCS: 73630; 99283

== ENCOUNTER 2024-08-28 16:59 | Emergency (ER) | payer OTHER, SELFPAY ==
--- NOTE | ~2024-08-28 | XR_ITS ---
Exam: Abdomen 1V HISTORY: CONSTIPATION COMPARISON: Reference is made to a CT examination of the abdomen and pelvis dated 04/09/2023 TECHNIQUE: Supine images of the abdomen FINDINGS: Bowel gas pattern is non-obstructive. Significant fecal stasis within the colon. No dilated loops of bowel are identified. There is no free air or deep sulci. No pathologic calcifications are seen. Lung bases are unremarkable. Densely calcified splenic artery is identified. Pleural plaques are also noted. IMPRESSION: Significant fecal stasis, as detailed above. Reviewed, dictated and finalized at location A.
--- OUTSIDE RECORDS SUMMARY | 2024-08-28 17:03 | XMS_ITS | Clinical Summary ---
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
--- OUTSIDE RECORDS SUMMARY | 2024-08-28 17:03 | XMS_ITS | Clinical Summary ---
Author Organization [facility] [address] Address [address] [place] [address] Care Team Providers Care Yardage Caller Name Role Phone Marina Barnett NP Primary Care Provider +1- [phone] Allergies No known active allergies Medications amLODIPine (NORVASC) 2.5 mg tablet Take 1 tablet (2.5 mg total) by mouth daily 023 Active atorvastatin (LIPITOR) 40 mg tablet Take 1 tablet (40 mg total) by mouth daily 023 Active bisoprolol (ZEBETA) 5 mg tablet 023 Active Breo Ellipta 200-25 mcg/dose diskus inhaler 1 puff daily 023 Active hydroCHLOROth iazide (HYDRODIURIL) 25 mg tablet 02/14/2016Hydrochlor othiazide, po solid 25 mg TabletPOas directedCurrent Medication 016 Active losartan (COZAAR) 25 mg tablet 02/14/2016Losartan potassium, po solid 25 mg TabletPOBIDCurrent Medication 016 Active memantine (NAMENDA) 5 mg tablet START WITH ONE TABLET BY MOUTH DAILY FOR 7 DAYS, THEN GO TO 1 TABLET BY MOUTH TWICE DAILY 023 Active omeprazole (PriLOSEC) 40 mg capsule 023 Active venlafaxine XR (EFFEXOR-XR) 75 mg 24 hr capsule Take by mouth daily 023 Active predniSONE (DELTASONE) 10 mg tablet Take 5 tabs (50mg) daily for 2 days, then take 4 tabs (40mg) daily for 2 days. Continue to decrease by 1 tab (10mg) every 2 days until gone. 30 tablet 023 Active triamcinolone (KENALOG) 0.1 % cream Apply to affected area 1-2 times daily as needed. Avoid face and groin. 30 g 023 Active levothyroxine (SYNTHROID) 50 mcg tablet Take 1 tablet (50 mcg total) by mouth every morning 025 Active ergocalcifero l (VITAMIN D) 50,000 unit capsule Take 1 capsule (50,000 Units total) by mouth once a week 025 Active potassium chloride ER 10 mEq CR tablet Take 1 tablet/capsule (10 mEq total) by mouth daily 025 Active albuterol HFA (PROVENTIL HFA,VENTOLIN HFA,PROAIR HFA) 90 mcg/actuation inhaler Inhale 1 puff every 4 (four) hours as needed Active levothyroxine (SYNTHROID) 75 mcg tablet Take 1 tablet (75 mcg total) by mouth daily 023 2024 Discontinued Active Problems No known active problems Encounters Date Type Department Care Team Description 08/28/2024 2:45 PM CDT Office Visit [facility] Medical [facility] Convenient Care at [address] [address] Devora Madison NP Left-sided chest pain (Primary Dx); Subacute cough 08/28/2024 2:40 PM CDT Ancillary Procedure [facility] Medical Group Imaging at [address] [address] Left-sided chest pain; Subacute cough from Last 3 Months Social History Tobacco Use Types Packs/Day Years Used Date Smoking Tobacco: Never Assessed Comments Unknown Sex and Gender Information Value Date Recorded Sex Assigned at Not on file 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 Gender Identity Not on file Sexual Orientation Not on file Obstetrics History Last Filed Vital Signs Vital Sign Reading Time Taken Comments Blood Pressure 124/78 08/28/2024 2:10 PM CDT Pulse 69 08/28/2024 2:10 PM CDT Temperature 36.6 C (97.9 F) 08/28/2024 2:10 PM CDT Respiratory Rate 16 08/28/2024 2:10 PM CDT Oxygen Saturation 97% 08/28/2024 2:10 PM CDT Inhaled Oxygen Concentration - - Weight 66.7 kg (147 lb) 08/28/2024 2:10 PM CDT Height 152.4 cm (5') 08/28/2024 2:10 PM CDT Body Mass Index 28.71 08/28/2024 2:10 PM CDT Plan of Treatment Health Maintenance Due Date Last Done Comments Depression Screening 1942 Fall Risk Assessment 1942 Osteoporosis Screening-Bone Density Scan 1942 DTaP/Tdap/Td Vaccine (1 - Tdap) 1953 Hepatitis B Screening 1960 Pneumococcal vaccine 65+ (1 of 2 - PCV) 1961 Well Visit 65+ 11/29/2007 Zoster Vaccine (2 of 3) 04/10/2016 02/14/2016 Covid-19 Vaccine (4 - 2023-2 5 season) 2023 06/02/2021, 06/12/2020, 05/22/2020 Influenza Vaccine Completed 02/17/2024, , 06/02/2021, Additional history exists Procedures Procedure Name Priority Date/Time Associated Diagnosis Comments XR CHEST PA LATERAL 2 VIEWS Schedule BLANCHE, Read BLANCHE (Appt Today, Awaiting Results) 08/28/2024 3:03 PM CDT Left-sided chest pain Subacute cough ECG 12-LEAD Routine 08/28/2024 2:54 PM CDT Left-sided chest pain from Last 3 Months Results * XR Chest PA Lateral 2 Views (08/28/2024 3:03 PM CDT) Anatomical Region Laterality Modality Body, Chest N/A Digital Radiogra phy 08/28/2024 3:44 PM CDT Narrative 08/28/2024 3:46 PM CDT EXAM DESCRIPTION: XR CHEST PA LATERAL 2 VIEWS REASON FOR STUDY: cough Pt complains of cough and pain to chest x 3 weeks. No asthma,copd,cancer,heart disease. No chest surgery. Former smoker for 30 years, quit at 52 years old, 1/2 ppd. TECHNIQUE: 2 radiographic view(s) of the chest. COMPARISON: 07/17/2022 FINDINGS: LUNGS: No focal opacity, pleural effusion, or pneumothorax. HEART/MEDIASTINUM: Cardiac silhouette normal in size. Mediastinal and hilar contours appear normal. LINES/TUBES: None. BONES: No acute osseous abnormality. IMPRESSION: No acute cardiopulmonary abnormality. THIS IS AN ELECTRONICALLY VERIFIED FINAL REPORT 08/28/2024 3:46 PM - Electronically signed by Porfirio GARRETT T: Report ID: [id number] Reading Location: [id number] Procedure Note Porfirio Wilburn MD - 08/28/2024 EXAM DESCRIPTION: XR CHEST PA LATERAL 2 VIEWS REASON FOR STUDY: cough Pt complains of cough and pain to chest x 3 weeks. Noasthma,copd,cancer,heart disease. No chest surgery. Former smoker for 30 years, quit at 52 yearsold, 1/2 ppd. TECHNIQUE: 2 radiographic view(s) of the chest. COMPARISON: 07/17/2022 FINDINGS: LUNGS: No focal opacity, pleural effusion, or pneumothorax. HEART/MEDIASTINUM: Cardiac silhouette normal in size. Mediastinal andhilar contours appear normal. LINES/TUBES: None. BONES: No acute osseous abnormality. IMPRESSION: No acute cardiopulmonary abnormality. THIS IS AN ELECTRONICALLY VERIFIED FINAL REPORT 08/28/2024 3:46 PM - Electronically signed by Porfirio GARRETT T: Report ID: [id number] Reading Location: [id number] us Devora Madison NP IMG XR PROCEDURES Final Result * ECG 12 lead (08/28/2024 2:54 PM CDT) us Devora Madison NP ECG ORDERABLES Final Result from Last 3 Months Insurance [facility] Care Teams Yardage Caller Relationship Specialty Start Date End Date Marina Barnett NP [address] [facility] [address] [place], [place] [id number] PCP - General Internal Medicine 08/28/24
--- OUTSIDE RECORDS SUMMARY | 2024-08-28 17:03 | XMS_ITS | Encounter Summary ---
Author Organization [facility] Healthcare Address [address] [place] [address] Care Team Providers Care Orchid Superintendent Name Role Phone Marina Barnett NP Primary Care Provider +1- [phone] Reason for Referral * Cardiology (Routine) - Authorized Specialty Diagnoses / Procedures Referred By Contac t Referred To Contact Diagnoses Left-sided chest pain Procedures ECG 12 lead Devora Madison NP [address] [facility] [address] [place] [address] Phone: tel: fax: [facility] Medical Group Referral ID Status Reason Start Date Expiration Date V isits Requested Visits Authorized [id number] Authorized 08/28/2024 09/27/2025 1 1 Reason for Visit * Reason Comments Rib Injury L sided rib pain sta rted today. Reports yesterday she was picking up branches in the yard yesterday. 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 Gender Identity Not on file Sexual Orientation Not on file documented as of this encounter Last Filed Vital Signs Vital Sign Reading [...] Mass Index 28.71 08/28/2024 2:10 PM CDT documented in this encounter Plan of Treatment Not on file documented as of this encounter Procedures Procedure Name Priority Date/Time Associated Diagnosis Comments ECG 12-LEAD Routine 08/28/2024 2:54 PM CDT Left-sided chest pain documented in this encounter Results * XR Chest PA Lateral 2 [...] signed by Porfirio GARRETT T: Report ID: [id number] Reading Location: [id number] Procedure Note Porfirio Wilburn MD - 08/28/2024 [...] signed by Porfirio GARRETT T: Report ID: [id number] Reading Location: [id number] us Devora Madison NP IMG XR PROCEDURES Final Result * ECG 12 lead (08/28/2024 2:54 PM CDT) us Devora Madison NP ECG ORDERABLES Final Result documented in this encounter Visit Diagnoses Diagnosis Left-sided chest pain- Primary Subacute cough Left-sided chest pain Subacute cough documented in this encounter Discontinued Medications Medication Sig Discontinue Reason Start Date End Da te levothyroxine (SYNTHROID) 75 mcg tablet Take 1 tablet (75 mcg total) by mouth daily 07/02/2022 08/28/2024 documented as of this encounter Historical Medications * This list may reflect changes made after this encounter. albuterol HFA (PROVENTIL HFA,VENTOLIN HFA,PROAIR HFA) 90 mcg/actuation inhaler Inhale 1 puff every 4 (four) hours as needed potassium chloride ER 10 mEq CR tablet Take 1 tablet/capsule (10 mEq total) by mouth daily 06/22/2024 ergocalciferol (VITAMIN D) 50,000 unit capsule Take 1 capsule (50,000 Units total) by mouth once a week 08/06/2024 levothyroxine (SYNTHROID) 50 mcg tablet Take 1 tablet (50 mcg total) by mouth every morning 07/31/2024 added in this encounter Care Teams Orchid Superintendent Relationship Specialty Start Date End Date Marina Barnett NP [address] [facility] [address] [place] [address] PCP - General Internal Medicine 08/28/24 documented as of this encounter
--- OUTSIDE RECORDS SUMMARY | 2024-08-28 17:03 | XMS_ITS | Encounter Summary ---
Author Organization [facility] Address 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
--- OUTSIDE RECORDS SUMMARY | 2024-08-28 17:03 | XMS_ITS | Referral Summary ---
Author Organization [facility] [address] Address [address] [place] [address] Care Team Providers Care Engineering Technical Specialist Name Role Phone Marina Barnett NP Primary Care Provider +1- [phone] Encounters Date Type Department Care Team Description 08/28/2024 2:40 PM CDT Ancillary Procedure [facility] Medical Group Imaging at [address] [address] Left-sided chest pain; Subacute cough 08/28/2024 2:45 PM CDT Office Visit [facility] Medical Group Convenient Care at [address] [address] Devora Madison NP Left-sided chest pain (Primary Dx); Subacute cough from Last 3 Months Allergies No known active allergies Medications amLODIPine [...] Discontinued Active Problems No known active problems Social History Tobacco Use Types Packs/Day Years Used Date Smoking Tobacco: Never Assessed Comments Unknown Sex and Gender Information Value Date Recorded Sex Assigned at Not on file 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 KR T: Report ID: [id number] Reading Location: [id number] Procedure Note Porfirio Wilburn MD - 08/28/2024 [...] 3:46 PM - Electronically signed by Porfirio Wilburn M.D. KR T: Report ID: [id number] Reading Location: [place] [id number] us Devora Madison NP IMG XR PROCEDURES Final Result * ECG 12 lead (08/28/2024 2:54 PM CDT) us Devora Madison NP ECG ORDERABLES Final Result from Last 3 Months Insurance [facility] Care Teams Engineering Technical Specialist Relationship Specialty Start Date End Date Marina Barnett NP [address] [facility] [address] [place] [address] PCP - General Internal Medicine 08/28/24
--- OUTSIDE RECORDS SUMMARY | 2024-08-28 17:03 | XMS_ITS | Encounter Summary ---
Author Organization [employer] Address [address] [place] [address] Care Team Providers Care Pail Tester Name Role Phone Gunnar Plummer MD, Abdi Murphy Primary Care Provid er Encounter Details Date Type Department Care Team (Late st Contact Info) Description 07/14/[address] [facility] Support Serv. ([facility]) [address] 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
--- OUTSIDE RECORDS SUMMARY | 2024-08-28 17:03 | XMS_ITS | Encounter Summary ---
Author Organization [facility] Healthcare Address [address] [place] [address] Care Team Providers Care Yacht Builder Name Role Phone Marina Barnett NP Primary Care Provider +1- [phone] Encounter Details Date Type Department Care Team (Latest Contact Info) Description 08/28/2024 2:40 PM CDT Ancillary Procedure [facility] Medical Group Imaging at [address] [address] Left-sided chest pain; Subacute cough Social History Tobacco Use Types Packs/Day Years Used Date Smoking Tobacco: Never Assessed Comments Unknown Sex and Gender Information Value Date Recorded Sex Assigned at Not on file 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 Gender Identity Not on file Sexual Orientation Not on file documented as of this encounter Plan of Treatment Not on file documented as of this encounter Procedures Procedure Name Priority Date/Time Associated Diagnosis Comments XR CHEST PA LATERAL 2 VIEWS Schedule BLANCHE, Read BLANCHE (Appt Today, Awaiting Results) 08/28/2024 3:03 PM CDT Left-sided chest pain Subacute cough documented in this encounter Results * XR [...] signed by Porfirio GARRETT T: Report ID: [id number] Reading Location: [id number] Procedure Note Porfirio Wilburn MD - 08/28/2024 [...] signed by Porfirio GARRETT T: Report ID: [id number] Reading Location: [id number] Devora Madison NP [employer] XR PROCEDURES Final Result documented in this encounter Visit Diagnoses Diagnosis Left-sided chest pain Subacute cough documented in this encounter Care Teams Yacht Builder Relationship Specialty Start Date End Date Marina Barnett NP [address] [facility] [address] [place] [address] PCP - General Internal Medicine 08/28/24 documented as of this encounter
[2024-08-28 17:15] VITALS: BP 159/82; PULSE 63; RESP 18; TEMP 37; O2SAT 99
--- NOTE | 2024-08-28 17:35 | ECG_ITS ---
Test Date: 2024-08-28 17:44:03 Measurements Intervals [place] Rate: 60 P: 51 [place]: 181 QRS: 13 QRSD: 81 T: 51 QT: 423 QTc: 426 Interpretive Statements SINUS RHYTHM No previous ECG available for comparison Electronically Signed On 08-29-2024 17:07:34 CDT by Alfonso Mccracken M.D.
[2024-08-28 17:46] LABS: Basophils Absolute Auto 0.1 K/mm3 (0.0-0.1); Basophils Percent Auto 0.6 % (0.2-1.2); Eosinophils Absolute Auto 0.3 K/mm3 (0-0.3); Eosinophils Percent Auto 3.2 % (0-4.4); Hematocrit 43.8 % (37.0-47.0); Hemoglobin 14.5 g/dL (12.0-15.0); Immature Granulocyte Absolute 0.03 K/mm3 (0.00-0.031); Immature Granulocyte Percent A 0.4 % (0-0.5); Lymphocytes Absolute Auto 1.38 K/mm3 (0.9-3.2); Lymphocytes Percent Auto 17.9 % (18.3-44.2); Mean Corpuscular HGB Conc 33.1 g/dl (32-36); Mean Corpuscular Hemoglobin 30.3 pg (26-34); Mean Corpuscular Volume 91.4 fl (80-100); Mean Platelet Volume 9.7 fl (7.4-10.4); Monocytes Absolute Auto 0.7 K/mm3 (0.1-0.6); Monocytes Percent Auto 9.3 % (2.6-8.5); Neutrophils Absolute Auto 5.3 K/mm3 (1.3-6.7); Neutrophils Percent Auto 68.6 % (45.5-73.1); Platelet Count Result 288 k/mm3 (150-375); Red Blood Count 4.79 M/mm3 (4.2-5.4); White Blood Count 7.7 K/mm3 (4.5-10.0)
--- NOTE | 2024-08-28 17:48 | ED_ITS ---
HPI - Abdominal Pain General Chief Complaint: Abdominal Pain <Tammy Landry APRN - Last Filed: 08/28/24 17:49> Stated Complaint: LUQ pain since this Am-sent by [facility] <Tammy Landry APRN - Last Filed: 08/28/24 17:49> Time Seen by Provider: 08/28/24 17:45 <Tammy Landry APRN - Last Filed: 08/28/24 17:49> Focused HPI: Patient is an 83-year-old female who presents to the ER with complaints of left flank pain that radiates to her abdomen. She also reports pain intermittently radiates up to her left shoulder. Patient reports pain started this morning. She denies any urinary symptoms, lower extremity edema, or shortness of breath. Patient reports her only medical history of high blood pressure. GENERAL: Well-appearing, well-nourished, and in no acute distress. HEAD: Normocephalic, atraumatic. CHEST: Clear to auscultation. ?No respiratory distress. HEART: Regular rate and rhythm.? NEURO: ?Alert and oriented x3. Patient screened in triage and initial orders placed.? ?Additional care and disposition to be based upon?diagnostic testing and treatment. <Tammy Landry APRN - Last Filed: 08/28/24 17:49> History of Present Illness HPI narrative: Pre with HPI. Constipation with small firm rounded stool. No belching/vomiting/bloating. Mild discomfort in left abdomen. Typically takes Metamucil. Also reported some shoulder pain that she reports did not start DKA that started last week. Occasional. No exertional chest pain. No modifying factors for shoulder pain. <Charles Valero MD - Last Filed: 08/28/24 20:46> Related Data Home Medications: Home Medications ?Medication ?Instructions ?Recorded ?Confirmed ?Last Taken ?Type lidocaine 5 % topical patch 1 patch topical DAILY PRN 04/08/23 03/16/24 Unknown History (Lidoderm) arthritic pain psyllium husk (with sugar) 3.4 1 tbsp PO DAILY 04/08/23 03/16/24 Unknown History gram oral powder packet (Metamucil (with sugar)) <Tammy Lnadry APRN - Last Filed: 08/28/24 17:49> Allergies/Adverse Reactions: Allergies Allergy/AdvReac Type Severity Reaction Status Date / Time No Known Allergies Allergy Verified 08/28/24 17:02 <Tammy Landry APRN - Last Filed: 08/28/24 17:49> Review of Systems 2 Review of Systems: All systems reviewed & are unremarkable except as noted in HPI and below <Charles Valero MD - Last Filed: 08/28/24 20:46> Constitutional: Constitutional: Reports no additional constitutional complaints <Charles Valero MD - Last Filed: 08/28/24 20:46> Cardiovascular: Cardiovascular: Reports no additional cardiovascular complaints <Charles Valero MD - Last Filed: 08/28/24 20:46> Respiratory: Respiratory: Reports no additional respiratory complaints < Charles Valero MD - Last Filed: 08/28/24 20:46> Gastrointestinal: Gastrointestinal: Reports no additional gastrointestinal complaints <Charles Valero MD - Last Filed: 08/28/24 20:46> Musculoskeletal: Musculoskeletal: Reports no additional musculoskeletal complaints <Charles Valero MD - Last Filed: 08/28/24 20:46> PMFSH Past Medical History Medical History: Medical History Colonic polyp Diverticulosis of intestine without perforation or abscess without bleeding Colon cancer screening Gastroesophageal reflux disease Hypothyroidism Osteoarthritis of left knee Anxiety disorder, unspecified 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 Chronic obstructive pulmonary disease Essential hypertension Polycythemia vera Pure hypercholesterolemia Patellofemoral arthritis of right knee <Tammy Landry APRN - Last Filed: 08/28/24 17:49> Surgical History Surgical History: Surgical History History of colonoscopy 06/28/2023, Dr. Chong History of cataract extraction History of breast biopsy History of hemorrhoidectomy 2021, Dr. Thompson History of hysterectomy (2001) <Tammy Landry APRN - Last Filed: 08/28/24 17:49> Family History Family History: Family History Sibling Family history of heart disease in male family member before age 55 Family history of chronic obstructive pulmonary disease Lung cancer Mother Family history of congestive heart failure Father Family history of heart disease in male family member before age 55 Family history of alcoholism, Onset Age: 47 Other Family history of Alzheimer's disease Grandparent Family history of cardiovascular disease <Tammy Landry APRN - Last Filed: 08/28/24 17:49> Social History Social History: Social History Social History: Surrogate medical decision maker: Tomasa Ferrariright, brett. Code status: Full code. Smoking packs per day: 1 Smoking cigarettes per day: 20.0 Years smoked: 25 Smoking pack-years: 25.00 Smoking status: Former smoker Tobacco type: cigarettes Second hand tobacco smoke exposure: No Smoking end date: 04/08/92 Alcohol intake: current Drinks per week: 7 Substance use: never Substance use type: does not use Do You Feel Safe in your Home?: Yes Lack of Transportation: No Lack of Food: Never True Current Housing: I Have Housing Concerned About Future Housing: No Difficulty Paying Gas/Electric Bills: No Difficulty Paying for Meds: No Currently Unemployed: No Education: Don't Know Difficulty w/ Childcare or Family Care: No Living arrangements: with family Additional living arrangements comments: Lives in [place]. Disabled brother lives with her and she helps care for him. Additional occupation/education comments: Works part-time at [employer]. Spiritual care concerns: No <Tammy Landry, AMOR - Last Filed: 08/28/24 17:49> Exam 2 Narrative: GENERAL: Well-appearing, well-nourished, and in no acute distress. HEAD: Normocephalic, atraumatic. ENT: Mucous membranes moist. NECK: Supple. No significant muscular tenderness. CHEST: Clear to auscultation. No respiratory distress. HEART: Regular rate and rhythm. Normal peripheral pulses. ABDOMEN: Soft, nontender, nondistended. EXTREMITIES: Normal range of motion. No edema. SKIN: Warm, dry, no rash. NEURO: Alert and oriented x3. PSYCH: Normal mood and affect. <Charles Valero MD - Last Filed: 08/28/24 20:46> Course Course Emergency Course: Patient resting comfortably. Informed of results. Will give her magnesium citrate here in the [facility] for home. <Charles Valero MD - Last Filed: 08/28/24 20:46> Vital Signs Vital signs: Vital Signs Temperature 98.6 F 08/28/24 17:15 Pulse Rate 63 08/28/24 17:15 Respiratory Rate 18 08/28/24 17:15 Blood Pressure 159/82 H 08/28/24 17:15 Pulse Oximetry 99 08/28/24 17:15 Oxygen Delivery Room Air 08/28/24 17:15 Temperature 98.6 F 08/28/24 17:15 Pulse Rate 58 L 08/28/24 19:39 Respiratory Rate 16 08/28/24 19:39 Blood Pressure 180/86 H 08/28/24 19:39 Pulse Oximetry 96 08/28/24 19:39 Oxygen Delivery Room Air 08/28/24 17:15 <Tammy Landry APRN - Last Filed: 08/28/24 17:49> Vital Signs Temperature 98.6 F 08/28/24 17:15 Pulse Rate 63 08/28/24 17:15 Respiratory Rate 18 08/28/24 17:15 Blood Pressure 159/82 H 08/28/24 17:15 Pulse Oximetry 99 08/28/24 17:15 Oxygen Delivery Room Air 08/28/24 17:15 Temperature 98.6 F 08/28/24 17:15 Pulse Rate 58 L 08/28/24 19:39 Respiratory Rate 16 08/28/24 19:39 Blood Pressure 180/86 H 08/28/24 19:39 Pulse Oximetry 96 08/28/24 19:39 Oxygen Delivery Room Air 08/28/24 17:15 <Charles Valero MD - Last Filed: 08/28/24 20:46> MDM - Abdominal Pain MDM Narrative Medical decision making narrative: Age-Adjusted D-dimer for Venous Thromboembolism (VTE) from [facility] on 08/28/2024 All calculations should be rechecked by clinician prior to use RESULT SUMMARY: 810 ?g/L Age-adjusted D-dimer cutoff, FEU VTE unlikely Reported D-dimer is less than or equal to cutoff; consider alternative diagnosis INPUTS: Age ?> 83 years D-dimer level reported by lab ?> 0.53 ?g/L D-dimer unit type ?> 0 = FEU (unadjusted cutoff typically ~500 or 0.50) <Charles Valero MD - Last Filed: 08/28/24 20:46> Lab Data Result diagrams: 08/28/24 17:41 08/28/24 17:41 <Tammy Landry APRN - Last Filed: 08/28/24 17:49> Labs: Lab Results 08/28/24 08/28/24 08/28/24 Range/Units 17:41 17:41 17:41 WBC 7.7 (4.5-10.0) K/mm3 RBC 4.79 (4.2-5.4) M/mm3 Hgb 14.5 (12.0-15.0) g/dL Hct 43.8 (37.0-47.0) % MCV 91.4 (80-100) fl MCH 30.3 (26-34) pg MCHC 33.1 (32-36) g/dl RDW 13.0 (11.5-14.5) % Plt Count 288 (150-375) k/mm3 MPV 9.7 (7.4-10.4) fl Immature Gran % (Auto) 0.4 (0-0.5) % Neut % (Auto) 68.6 (45.5-73.1) % Lymph % (Auto) 17.9 L (18.3-44.2) % [place] % (Auto) 9.3 H (2.6-8.5) % Eos % (Auto) 3.2 (0-4.4) % Baso % (Auto) 0.6 (0.2-1.2) % Lymph # (Auto) 1.38 (0.9-3.2) K/mm3 [place] # (Auto) 0.7 H (0.1-0.6) K/mm3 Eos # (Auto) 0.3 (0-0.3) K/mm3 Baso # (Auto) 0.1 (0.0-0.1) K/mm3 Abs Immat Gran (auto) 0.03 (0.00-0.031) K/mm3 Absolute Neuts (auto) 5.3 (1.3-6.7) K/mm3 Absolute Nucleated RBC 0.000 (0.0-0.012) K/mm3 Nucleated RBC % 0.0 (0.0-0.2) % D-Dimer (<0.48) ug/mL Sodium Cancelled 141 Potassium Cancelled 3.6 Chloride Cancelled Carbon Dioxide Anion Gap BUN Creatinine Estim Creat Clear Calc Estimated GFR Glucose Calcium Total Bilirubin AST ALT Alkaline Phosphatase Troponin I (0.000-0.034) ng/mL Total Protein Albumin Lipase Urine Color (Yellow) Urine Appearance (Clear) Urine pH (5.0-9.0) Ur Specific [place] (1.001-1.035) Urine Protein (Negative) mg/dL Urine Glucose (UA) (Negative) mg/dL Urine Ketones (Negative) mg/dL Ur Blood (Man) (Negative) Urine Nitrate (Negative) Urine Bilirubin (Negative) Urine Urobilinogen (<2.0) mg/dL Leukocyte Esterase Rfl (Negative) GEOFF/UL Urine RBC (0-2) /hpf Urine WBC (0-3) /hpf Ur Squamous Epith Cells (Few) /hpf Urine Bacteria /hpf Urine Casts 08/28/24 08/28/24 08/28/24 Range/Units 17:41 17:41 17:41 WBC (4.5-10.0) K/mm3 RBC (4.2-5.4) M/mm3 Hgb (12.0-15.0) g/dL Hct (37.0-47.0) % MCV (80-100) fl MCH (26-34) pg MCHC (32-36) g/dl RDW (11.5-14.5) % Plt Count (150-375) k/mm3 MPV (7.4-10.4) fl Immature Gran % (Auto) (0-0.5) % Neut % (Auto) (45.5-73.1) % Lymph % (Auto) (18.3-44.2) % [place] % (Auto) (2.6-8.5) % Eos % (Auto) (0-4.4) % Baso % (Auto) (0.2-1.2) % Lymph # (Auto) (0.9-3.2) K/mm3 [place] # (Auto) (0.1-0.6) K/mm3 Eos # (Auto) (0-0.3) K/mm3 Baso # (Auto) (0.0-0.1) K/mm3 Abs Immat Gran (auto) (0.00-0.031) K/mm3 Absolute Neuts (auto) (1.3-6.7) K/mm3 Absolute Nucleated RBC (0.0-0.012) K/mm3 Nucleated RBC % (0.0-0.2) % D-Dimer (<0.48) ug/mL Sodium Potassium Chloride 106 Carbon Dioxide Cancelled 28 Anion Gap Cancelled 7 BUN Cancelled Creatinine Estim Creat Clear Calc Estimated GFR Glucose Calcium Total Bilirubin AST ALT Alkaline Phosphatase Troponin I (0.000-0.034) ng/mL Total Protein Albumin Lipase Urine Color (Yellow) Urine Appearance (Clear) Urine pH (5.0-9.0) Ur Specific Venus (1.001-1.035) Urine Protein (Negative) mg/dL Urine Glucose (UA) (Negative) mg/dL Urine Ketones (Negative) mg/dL Ur Blood (Man) (Negative) Urine Nitrate (Negative) Urine Bilirubin (Negative) Urine Urobilinogen (<2.0) mg/dL Leukocyte Esterase Rfl (Negative) GEOFF/UL Urine RBC (0-2) /hpf Urine WBC (0-3) /hpf Ur Squamous Epith Cells (Few) /hpf Urine Bacteria /hpf Urine Casts 08/28/24 08/28/24 08/28/24 Range/Units 17:41 17:41 17:41 WBC (4.5-10.0) K/mm3 RBC (4.2-5.4) M/mm3 Hgb (12.0-15.0) g/dL Hct (37.0-47.0) % MCV (80-100) fl MCH (26-34) pg MCHC (32-36) g/dl RDW (11.5-14.5) % Plt Count (150-375) k/mm3 MPV (7.4-10.4) fl Immature Gran % (Auto) (0-0.5) % Neut % (Auto) (45.5-73.1) % Lymph % (Auto) (18.3-44.2) % [place] % (Auto) (2.6-8.5) % Eos % (Auto) (0-4.4) % Baso % (Auto) (0.2-1.2) % Lymph # (Auto) (0.9-3.2) K/mm3 [place] # (Auto) (0.1-0.6) K/mm3 Eos # (Auto) (0-0.3) K/mm3 Baso # (Auto) (0.0-0.1) K/mm3 Abs Immat Gran (auto) (0.00-0.031) K/mm3 Absolute Neuts (auto) (1.3-6.7) K/mm3 Absolute Nucleated RBC (0.0-0.012) K/mm3 Nucleated RBC % (0.0-0.2) % D-Dimer (<0.48) ug/mL Sodium Potassium Chloride Carbon Dioxide Anion Gap BUN 20 H Creatinine Cancelled 0.88 Estim Creat Clear Calc Cancelled 37 Estimated GFR Cancelled Glucose Calcium Total Bilirubin AST ALT Alkaline Phosphatase Troponin I (0.000-0.034) ng/mL Total Protein Albumin Lipase Urine Color (Yellow) Urine Appearance (Clear) Urine pH (5.0-9.0) Ur Specific [place] (1.001-1.035) Urine Protein (Negative) mg/dL Urine Glucose (UA) (Negative) mg/dL Urine Ketones (Negative) mg/dL Ur Blood (Man) (Negative) Urine Nitrate (Negative) Urine Bilirubin (Negative) Urine Urobilinogen (<2.0) mg/dL Leukocyte Esterase Rfl (Negative) GEOFF/UL Urine RBC (0-2) /hpf Urine WBC (0-3) /hpf Ur Squamous Epith Cells (Few) /hpf Urine Bacteria /hpf Urine Casts 08/28/24 08/28/24 08/28/24 Range/Units 17:41 17:41 17:41 WBC (4.5-10.0) K/mm3 RBC (4.2-5.4) M/mm3 Hgb (12.0-15.0) g/dL Hct (37.0-47.0) % MCV (80-100) fl MCH (26-34) pg MCHC (32-36) g/dl RDW (11.5-14.5) % Plt Count (150-375) k/mm3 MPV (7.4-10.4) fl Immature Gran % (Auto) (0-0.5) % Neut % (Auto) (45.5-73.1) % Lymph % (Auto) (18.3-44.2) % [place] % (Auto) (2.6-8.5) % Eos % (Auto) (0-4.4) % Baso % (Auto) (0.2-1.2) % Lymph # (Auto) (0.9-3.2) K/mm3 [place] # (Auto) (0.1-0.6) K/mm3 Eos # (Auto) (0-0.3) K/mm3 Baso # (Auto) (0.0-0.1) K/mm3 Abs Immat Gran (auto) (0.00-0.031) K/mm3 Absolute Neuts (auto) (1.3-6.7) K/mm3 Absolute Nucleated RBC (0.0-0.012) K/mm3 Nucleated RBC % (0.0-0.2) % D-Dimer (<0.48) ug/mL Sodium Potassium Chloride Carbon Dioxide Anion Gap BUN Creatinine Estim Creat Clear Calc Estimated GFR > 60 Glucose Cancelled 92 Calcium Cancelled 9.4 Total Bilirubin Cancelled AST ALT Alkaline Phosphatase Troponin I (0.000-0.034) ng/mL Total Protein Albumin Lipase Urine Color (Yellow) Urine Appearance (Clear) Urine pH (5.0-9.0) Ur Specific Venus (1.001-1.035) Urine Protein (Negative) mg/dL Urine Glucose (UA) (Negative) mg/dL Urine Ketones (Negative) mg/dL Ur Blood (Man) (Negative) Urine Nitrate (Negative) Urine Bilirubin (Negative) Urine Urobilinogen (<2.0) mg/dL Leukocyte Esterase Rfl (Negative) GEOFF/UL Urine RBC (0-2) /hpf Urine WBC (0-3) /hpf Ur Squamous Epith Cells (Few) /hpf Urine Bacteria /hpf Urine Casts 08/28/24 08/28/24 08/28/24 Range/Units 17:41 17:41 17:41 WBC (4.5-10.0) K/mm3 RBC (4.2-5.4) M/mm3 Hgb (12.0-15.0) g/dL Hct (37.0-47.0) % MCV (80-100) fl MCH (26-34) pg MCHC (32-36) g/dl RDW (11.5-14.5) % Plt Count (150-375) k/mm3 MPV (7.4-10.4) fl Immature Gran % (Auto) (0-0.5) % Neut % (Auto) (45.5-73.1) % Lymph % (Auto) (18.3-44.2) % [place] % (Auto) (2.6-8.5) % Eos % (Auto) (0-4.4) % Baso % (Auto) (0.2-1.2) % Lymph # (Auto) (0.9-3.2) K/mm3 [place] # (Auto) (0.1-0.6) K/mm3 Eos # (Auto) (0-0.3) K/mm3 Baso # (Auto) (0.0-0.1) K/mm3 Abs Immat Gran (auto) (0.00-0.031) K/mm3 Absolute Neuts (auto) (1.3-6.7) K/mm3 Absolute Nucleated RBC (0.0-0.012) K/mm3 Nucleated RBC % (0.0-0.2) % D-Dimer (<0.48) ug/mL Sodium Potassium Chloride Carbon Dioxide Anion Gap BUN Creatinine Estim Creat Clear Calc Estimated GFR Glucose Calcium Total Bilirubin 0.7 AST Cancelled 39 H ALT Cancelled 27 Alkaline Phosphatase Cancelled Troponin I (0.000-0.034) ng/mL Total Protein Albumin Lipase Urine Color (Yellow) Urine Appearance (Clear) Urine pH (5.0-9.0) Ur Specific [place] (1.001-1.035) Urine Protein (Negative) mg/dL Urine Glucose (UA) (Negative) mg/dL Urine Ketones (Negative) mg/dL Ur Blood (Man) (Negative) Urine Nitrate (Negative) Urine Bilirubin (Negative) Urine Urobilinogen (<2.0) mg/dL Leukocyte Esterase Rfl (Negative) GEOFF/UL Urine RBC (0-2) /hpf Urine WBC (0-3) /hpf Ur Squamous Epith Cells (Few) /hpf Urine Bacteria /hpf Urine Casts 08/28/24 08/28/24 08/28/24 Range/Units 17:41 17:41 17:41 WBC (4.5-10.0) K/mm3 RBC (4.2-5.4) M/mm3 Hgb (12.0-15.0) g/dL Hct (37.0-47.0) % MCV (80-100) fl MCH (26-34) pg MCHC (32-36) g/dl RDW (11.5-14.5) % Plt Count (150-375) k/mm3 MPV (7.4-10.4) fl Immature Gran % (Auto) (0-0.5) % Neut % (Auto) (45.5-73.1) % Lymph % (Auto) (18.3-44.2) % [place] % (Auto) (2.6-8.5) % Eos % (Auto) (0-4.4) % Baso % (Auto) (0.2-1.2) % Lymph # (Auto) (0.9-3.2) K/mm3 [place] # (Auto) (0.1-0.6) K/mm3 Eos # (Auto) (0-0.3) K/mm3 Baso # (Auto) (0.0-0.1) K/mm3 Abs Immat Gran (auto) (0.00-0.031) K/mm3 Absolute Neuts (auto) (1.3-6.7) K/mm3 Absolute Nucleated RBC (0.0-0.012) K/mm3 Nucleated RBC % (0.0-0.2) % D-Dimer (<0.48) ug/mL Sodium Potassium Chloride Carbon Dioxide Anion Gap BUN Creatinine Estim Creat Clear Calc Estimated GFR Glucose Calcium Total Bilirubin AST ALT Alkaline Phosphatase 116 Troponin I < 0.012 (0.000-0.034) ng/mL Total Protein Cancelled 8.0 Albumin Cancelled 4.1 Lipase Cancelled Urine Color (Yellow) Urine Appearance (Clear) Urine pH (5.0-9.0) Ur Specific [place] (1.001-1.035) Urine Protein (Negative) mg/dL Urine Glucose (UA) (Negative) mg/dL Urine Ketones (Negative) mg/dL Ur Blood (Man) (Negative) Urine Nitrate (Negative) Urine Bilirubin (Negative) Urine Urobilinogen (<2.0) mg/dL Leukocyte Esterase Rfl (Negative) GEOFF/UL Urine RBC (0-2) /hpf Urine WBC (0-3) /hpf Ur Squamous Epith Cells (Few) /hpf Urine Bacteria /hpf Urine Casts 08/28/24 08/28/24 08/28/24 Range/Units 17:41 17:59 19:36 WBC (4.5-10.0) K/mm3 RBC (4.2-5.4) M/mm3 Hgb (12.0-15.0) g/dL Hct (37.0-47.0) % MCV (80-100) fl MCH (26-34) pg MCHC (32-36) g/dl RDW (11.5-14.5) % Plt Count (150-375) k/mm3 MPV (7.4-10.4) fl Immature Gran % (Auto) (0-0.5) % Neut % (Auto) (45.5-73.1) % Lymph % (Auto) (18.3-44.2) % [place] % (Auto) (2.6-8.5) % Eos % (Auto) (0-4.4) % Baso % (Auto) (0.2-1.2) % Lymph # (Auto) (0.9-3.2) K/mm3 [place] # (Auto) (0.1-0.6) K/mm3 Eos # (Auto) (0-0.3) K/mm3 Baso # (Auto) (0.0-0.1) K/mm3 Abs Immat Gran (auto) (0.00-0.031) K/mm3 Absolute Neuts (auto) (1.3-6.7) K/mm3 Absolute Nucleated RBC (0.0-0.012) K/mm3 Nucleated RBC % (0.0-0.2) % D-Dimer 0.53 H (<0.48) ug/mL Sodium Potassium Chloride Carbon Dioxide Anion Gap BUN Creatinine Estim Creat Clear Calc Estimated GFR Glucose Calcium Total Bilirubin AST ALT Alkaline Phosphatase Troponin I (0.000-0.034) ng/mL Total Protein Albumin Lipase 158 Urine Color Yellow (Yellow) Urine Appearance Clear (Clear) Urine pH 5.5 (5.0-9.0) Ur Specific [place] 1.018 (1.001-1.035) Urine Protein Negative (Negative) mg/dL Urine Glucose (UA) Negative (Negative) mg/dL Urine Ketones Negative (Negative) mg/dL Ur Blood (Man) Negative (Negative) Urine Nitrate Negative (Negative) Urine Bilirubin Negative (Negative) Urine Urobilinogen 0.2 (<2.0) mg/dL Leukocyte Esterase Rfl 2+ H (Negative) GEOFF/UL Urine RBC 0-2 (0-2) /hpf Urine WBC 11-20 H (0-3) /hpf Ur Squamous Epith Cells Moderate (Few) /hpf Urine Bacteria None seen /hpf Urine Casts 0-2 <Tammy Landry, [employer] - Last Filed: 08/28/24 17:49> Lab Results 08/28/24 08/28/24 08/28/24 Range/Units 17:41 17:41 17:41 WBC 7.7 (4.5-10.0) K/mm3 RBC 4.79 (4.2-5.4) M/mm3 Hgb 14.5 (12.0-15.0) g/dL Hct 43.8 (37.0-47.0) % MCV 91.4 (80-100) fl MCH 30.3 (26-34) pg MCHC 33.1 (32-36) g/dl RDW 13.0 (11.5-14.5) % Plt Count 288 (150-375) k/mm3 MPV 9.7 (7.4-10.4) fl Immature Gran % (Auto) 0.4 (0-0.5) % Neut % (Auto) 68.6 (45.5-73.1) % Lymph % (Auto) 17.9 L (18.3-44.2) % [place] % (Auto) 9.3 H (2.6-8.5) % Eos % (Auto) 3.2 (0-4.4) % Baso % (Auto) 0.6 (0.2-1.2) % Lymph # (Auto) 1.38 (0.9-3.2) K/mm3 [place] # (Auto) 0.7 H (0.1-0.6) K/mm3 Eos # (Auto) 0.3 (0-0.3) K/mm3 Baso # (Auto) 0.1 (0.0-0.1) K/mm3 Abs Immat Gran (auto) 0.03 (0.00-0.031) K/mm3 Absolute Neuts (auto) 5.3 (1.3-6.7) K/mm3 Absolute Nucleated RBC 0.000 (0.0-0.012) K/mm3 Nucleated RBC % 0.0 (0.0-0.2) % D-Dimer (<0.48) ug/mL Sodium Cancelled 141 Potassium Cancelled 3.6 Chloride Cancelled Carbon Dioxide Anion Gap BUN Creatinine Estim Creat Clear Calc Estimated GFR Glucose Calcium Total Bilirubin AST ALT Alkaline Phosphatase Troponin I (0.000-0.034) ng/mL Total Protein Albumin Lipase Urine Color (Yellow) Urine Appearance (Clear) Urine pH (5.0-9.0) Ur Specific [place] (1.001-1.035) Urine Protein (Negative) mg/dL Urine Glucose (UA) (Negative) mg/dL Urine Ketones (Negative) mg/dL Ur Blood (Man) (Negative) Urine Nitrate (Negative) Urine Bilirubin (Negative) Urine Urobilinogen (<2.0) mg/dL Leukocyte Esterase Rfl (Negative) GEOFF/UL Urine RBC (0-2) /hpf Urine WBC (0-3) /hpf Ur Squamous Epith Cells (Few) /hpf Urine Bacteria /hpf Urine Casts 08/28/24 08/28/24 08/28/24 Range/Units 17:41 17:41 17:41 WBC (4.5-10.0) K/mm3 RBC (4.2-5.4) M/mm3 Hgb (12.0-15.0) g/dL Hct (37.0-47.0) % MCV (80-100) fl MCH (26-34) pg MCHC (32-36) g/dl RDW (11.5-14.5) % Plt Count (150-375) k/mm3 MPV (7.4-10.4) fl Immature Gran % (Auto) (0-0.5) % Neut % (Auto) (45.5-73.1) % Lymph % (Auto) (18.3-44.2) % [place] % (Auto) (2.6-8.5) % Eos % (Auto) (0-4.4) % Baso % (Auto) (0.2-1.2) % Lymph # (Auto) (0.9-3.2) K/mm3 [place] # (Auto) (0.1-0.6) K/mm3 Eos # (Auto) (0-0.3) K/mm3 Baso # (Auto) (0.0-0.1) K/mm3 Abs Immat Gran (auto) (0.00-0.031) K/mm3 Absolute Neuts (auto) (1.3-6.7) K/mm3 Absolute Nucleated RBC (0.0-0.012) K/mm3 Nucleated RBC % (0.0-0.2) % D-Dimer (<0.48) ug/mL Sodium Potassium Chloride 106 Carbon Dioxide Cancelled 28 Anion Gap Cancelled 7 BUN Cancelled Creatinine Estim Creat Clear Calc Estimated GFR Glucose Calcium Total Bilirubin AST ALT Alkaline Phosphatase Troponin I (0.000-0.034) ng/mL Total Protein Albumin Lipase Urine Color (Yellow) Urine Appearance (Clear) Urine pH (5.0-9.0) Ur Specific [place] (1.001-1.035) Urine Protein (Negative) mg/dL Urine Glucose (UA) (Negative) mg/dL Urine Ketones (Negative) mg/dL Ur Blood (Man) (Negative) Urine Nitrate (Negative) Urine Bilirubin (Negative) Urine Urobilinogen (<2.0) mg/dL Leukocyte Esterase Rfl (Negative) GEOFF/UL Urine RBC (0-2) /hpf Urine WBC (0-3) /hpf Ur Squamous Epith Cells (Few) /hpf Urine Bacteria /hpf Urine Casts 08/28/24 08/28/24 08/28/24 Range/Units 17:41 17:41 17:41 WBC (4.5-10.0) K/mm3 RBC (4.2-5.4) M/mm3 Hgb (12.0-15.0) g/dL Hct (37.0-47.0) % MCV (80-100) fl MCH (26-34) pg MCHC (32-36) g/dl RDW (11.5-14.5) % Plt Count (150-375) k/mm3 MPV (7.4-10.4) fl Immature Gran % (Auto) (0-0.5) % Neut % (Auto) (45.5-73.1) % Lymph % (Auto) (18.3-44.2) % [place] % (Auto) (2.6-8.5) % Eos % (Auto) (0-4.4) % Baso % (Auto) (0.2-1.2) % Lymph # (Auto) (0.9-3.2) K/mm3 [place] # (Auto) (0.1-0.6) K/mm3 Eos # (Auto) (0-0.3) K/mm3 Baso # (Auto) (0.0-0.1) K/mm3 Abs Immat Gran (auto) (0.00-0.031) K/mm3 Absolute Neuts (auto) (1.3-6.7) K/mm3 Absolute Nucleated RBC (0.0-0.012) K/mm3 Nucleated RBC % (0.0-0.2) % D-Dimer (<0.48) ug/mL Sodium Potassium Chloride Carbon Dioxide Anion Gap BUN 20 H Creatinine Cancelled 0.88 Estim Creat Clear Calc Cancelled 37 Estimated GFR Cancelled Glucose Calcium Total Bilirubin AST ALT Alkaline Phosphatase Troponin I (0.000-0.034) ng/mL Total Protein Albumin Lipase Urine Color (Yellow) Urine Appearance (Clear) Urine pH (5.0-9.0) Ur Specific [place] (1.001-1.035) Urine Protein (Negative) mg/dL Urine Glucose (UA) (Negative) mg/dL Urine Ketones (Negative) mg/dL Ur Blood (Man) (Negative) Urine Nitrate (Negative) Urine Bilirubin (Negative) Urine Urobilinogen (<2.0) mg/dL Leukocyte Esterase Rfl (Negative) GEOFF/UL Urine RBC (0-2) /hpf Urine WBC (0-3) /hpf Ur Squamous Epith Cells (Few) /hpf Urine Bacteria /hpf Urine Casts 08/28/24 08/28/24 08/28/24 Range/Units 17:41 17:41 17:41 WBC (4.5-10.0) K/mm3 RBC (4.2-5.4) M/mm3 Hgb (12.0-15.0) g/dL Hct (37.0-47.0) % MCV (80-100) fl MCH (26-34) pg MCHC (32-36) g/dl RDW (11.5-14.5) % Plt Count (150-375) k/mm3 MPV (7.4-10.4) fl Immature Gran % (Auto) (0-0.5) % Neut % (Auto) (45.5-73.1) % Lymph % (Auto) (18.3-44.2) % [place] % (Auto) (2.6-8.5) % Eos % (Auto) (0-4.4) % Baso % (Auto) (0.2-1.2) % Lymph # (Auto) (0.9-3.2) K/mm3 [place] # (Auto) (0.1-0.6) K/mm3 Eos # (Auto) (0-0.3) K/mm3 Baso # (Auto) (0.0-0.1) K/mm3 Abs Immat Gran (auto) (0.00-0.031) K/mm3 Absolute Neuts (auto) (1.3-6.7) K/mm3 Absolute Nucleated RBC (0.0-0.012) K/mm3 Nucleated RBC % (0.0-0.2) % D-Dimer (<0.48) ug/mL Sodium Potassium Chloride Carbon Dioxide Anion Gap BUN Creatinine Estim Creat Clear Calc Estimated GFR > 60 Glucose Cancelled 92 Calcium Cancelled 9.4 Total Bilirubin Cancelled AST ALT Alkaline Phosphatase Troponin I (0.000-0.034) ng/mL Total Protein Albumin Lipase Urine Color (Yellow) Urine Appearance (Clear) Urine pH (5.0-9.0) Ur Specific [place] (1.001-1.035) Urine Protein (Negative) mg/dL Urine Glucose (UA) (Negative) mg/dL Urine Ketones (Negative) mg/dL Ur Blood (Man) (Negative) Urine Nitrate (Negative) Urine Bilirubin (Negative) Urine Urobilinogen (<2.0) mg/dL Leukocyte Esterase Rfl (Negative) GEOFF/UL Urine RBC (0-2) /hpf Urine WBC (0-3) /hpf Ur Squamous Epith Cells (Few) /hpf Urine Bacteria /hpf Urine Casts 08/28/24 08/28/24 08/28/24 Range/Units 17:41 17:41 17:41 WBC (4.5-10.0) K/mm3 RBC (4.2-5.4) M/mm3 Hgb (12.0-15.0) g/dL Hct (37.0-47.0) % MCV (80-100) fl MCH (26-34) pg MCHC (32-36) g/dl RDW (11.5-14.5) % Plt Count (150-375) k/mm3 MPV (7.4-10.4) fl Immature Gran % (Auto) (0-0.5) % Neut % (Auto) (45.5-73.1) % Lymph % (Auto) (18.3-44.2) % Forsyth % (Auto) (2.6-8.5) % Eos % (Auto) (0-4.4) % Baso % (Auto) (0.2-1.2) % Lymph # (Auto) (0.9-3.2) K/mm3 Forsyth # (Auto) (0.1-0.6) K/mm3 Eos # (Auto) (0-0.3) K/mm3 Baso # (Auto) (0.0-0.1) K/mm3 Abs Immat Gran (auto) (0.00-0.031) K/mm3 Absolute Neuts (auto) (1.3-6.7) K/mm3 Absolute Nucleated RBC (0.0-0.012) K/mm3 Nucleated RBC % (0.0-0.2) % D-Dimer (<0.48) ug/mL Sodium Potassium Chloride Carbon Dioxide Anion Gap BUN Creatinine Estim Creat Clear Calc Estimated GFR Glucose Calcium Total Bilirubin 0.7 AST Cancelled 39 H ALT Cancelled 27 Alkaline Phosphatase Cancelled Troponin I (0.000-0.034) ng/mL Total Protein Albumin Lipase Urine Color (Yellow) Urine Appearance (Clear) Urine pH (5.0-9.0) Ur Specific Venus (1.001-1.035) Urine Protein (Negative) mg/dL Urine Glucose (UA) (Negative) mg/dL Urine Ketones (Negative) mg/dL Ur Blood (Man) (Negative) Urine Nitrate (Negative) Urine Bilirubin (Negative) Urine Urobilinogen (<2.0) mg/dL Leukocyte Esterase Rfl (Negative) GEOFF/UL Urine RBC (0-2) /hpf Urine WBC (0-3) /hpf Ur Squamous Epith Cells (Few) /hpf Urine Bacteria /hpf Urine Casts 08/28/24 08/28/2408/28/25 Range/Units 17:41 17:41 17:41 WBC (4.5-10.0) K/mm3 RBC (4.2-5.4) M/mm3 Hgb (12.0-15.0) g/dL Hct (37.0-47.0) % MCV (80-100) fl MCH (26-34) pg MCHC (32-36) g/dl RDW (11.5-14.5) % Plt Count (150-375) k/mm3 MPV (7.4-10.4) fl Immature Gran % (Auto) (0-0.5) % Neut % (Auto) (45.5-73.1) % Lymph % (Auto) (18.3-44.2) % Forsyth % (Auto) (2.6-8.5) % Eos % (Auto) (0-4.4) % Baso % (Auto) (0.2-1.2) % Lymph # (Auto) (0.9-3.2) K/mm3 Forsyth # (Auto) (0.1-0.6) K/mm3 Eos # (Auto) (0-0.3) K/mm3 Baso # (Auto) (0.0-0.1) K/mm3 Abs Immat Gran (auto) (0.00-0.031) K/mm3 Absolute Neuts (auto) (1.3-6.7) K/mm3 Absolute Nucleated RBC (0.0-0.012) K/mm3 Nucleated RBC % (0.0-0.2) % D-Dimer (<0.48) ug/mL Sodium Potassium Chloride Carbon Dioxide Anion Gap BUN Creatinine Estim Creat Clear Calc Estimated GFR Glucose Calcium Total Bilirubin AST ALT Alkaline Phosphatase 116 Troponin I < 0.012 (0.000-0.034) ng/mL Total Protein Cancelled 8.0 Albumin Cancelled 4.1 Lipase Cancelled Urine Color (Yellow) Urine Appearance (Clear) Urine pH (5.0-9.0) Ur Specific Venus (1.001-1.035) Urine Protein (Negative) mg/dL Urine Glucose (UA) (Negative) mg/dL Urine Ketones (Negative) mg/dL Ur Blood (Man) (Negative) Urine Nitrate (Negative) Urine Bilirubin (Negative) Urine Urobilinogen (<2.0) mg/dL Leukocyte Esterase Rfl (Negative) GEOFF/UL Urine RBC (0-2) /hpf Urine WBC (0-3) /hpf Ur Squamous Epith Cells (Few) /hpf Urine Bacteria /hpf Urine Casts 08/28/24 08/28/24 08/28/24 Range/Units 17:41 17:59 19:36 WBC (4.5-10.0) K/mm3 RBC (4.2-5.4) M/mm3 Hgb (12.0-15.0) g/dL Hct (37.0-47.0) % MCV (80-100) fl MCH (26-34) pg MCHC (32-36) g/dl RDW (11.5-14.5) % Plt Count (150-375) k/mm3 MPV (7.4-10.4) fl Immature Gran % (Auto) (0-0.5) % Neut % (Auto) (45.5-73.1) % Lymph % (Auto) (18.3-44.2) % Forsyth % (Auto) (2.6-8.5) % Eos % (Auto) (0-4.4) % Baso % (Auto) (0.2-1.2) % Lymph # (Auto) (0.9-3.2) K/mm3 Forsyth # (Auto) (0.1-0.6) K/mm3 Eos # (Auto) (0-0.3) K/mm3 Baso # (Auto) (0.0-0.1) K/mm3 Abs Immat Gran (auto) (0.00-0.031) K/mm3 Absolute Neuts (auto) (1.3-6.7) K/mm3 Absolute Nucleated RBC (0.0-0.012) K/mm3 Nucleated RBC % (0.0-0.2) % D-Dimer 0.53 H (<0.48) ug/mL Sodium Potassium Chloride Carbon Dioxide Anion Gap BUN Creatinine Estim Creat Clear Calc Estimated GFR Glucose Calcium Total Bilirubin AST ALT Alkaline Phosphatase Troponin I (0.000-0.034) ng/mL Total Protein Albumin Lipase 158 Urine Color Yellow (Yellow) Urine Appearance Clear (Clear) Urine pH 5.5 (5.0-9.0) Ur Specific Venus 1.018 (1.001-1.035) Urine Protein Negative (Negative) mg/dL Urine Glucose (UA) Negative (Negative) mg/dL Urine Ketones Negative (Negative) mg/dL Ur Blood (Man) Negative (Negative) Urine Nitrate Negative (Negative) Urine Bilirubin Negative (Negative) Urine Urobilinogen 0.2 (<2.0) mg/dL Leukocyte Esterase Rfl 2+ H (Negative) GEOFF/UL Urine RBC 0-2 (0-2) /hpf Urine WBC 11-20 H (0-3) /hpf Ur Squamous Epith Cells Moderate (Few) /hpf Urine Bacteria None seen /hpf Urine Casts 0-2 <Charles Valero MD - Last Filed: 08/28/24 20:46> Imaging Data Radiologist's impression: ITS Impressions Abdomen X-Ray 08/28/24 20:24 IMPRESSION: Significant fecal stasis, as detailed above. <Tammy Landry APRN - Last Filed: 08/28/24 17:49> ITS Impressions Abdomen X-Ray 08/28/24 20:24 IMPRESSION: Significant fecal stasis, as detailed above. <Charles Valero MD - Last Filed: 08/28/24 20:46> ECG Data EKG #1: ECG completion date: 08/28/24 <Charles Valero MD - Last Filed: 08/28/24 20:46> ECG completion time: 17:44 <Charles Valero MD - Last Filed: 08/28/24 20:46> normal rate (60), sinus rhythm, normal QRS, normal QT and NL axis < Charles Valero MD - Last Filed: 08/28/24 20:46> Discharge Plan Discharge Clinical Impression: Constipation <Tammy Landry APRN - Last Filed: 08/28/24 17:49> Patient Disposition: Home <Tammy Landry APRN - Last Filed: 08/28/24 17:49> Condition: Stable <Tammy Landry APRN - Last Filed: 08/28/24 17:49> Instructions: Constipation (ED) <Tammy Landry APRN - Last Filed: 08/28/24 17:49> Additional Instructions: Return to the emergency department if you develop severe abdominal pain, severe nausea and vomiting to the point where you are unable to keep down fluids, if you develop chest pain or difficulty breathing, blood in your stool, dizziness or fainting, or if you develop any other new or concerning symptoms as these could be signs of more serious medical illness. Try to stay well hydrated. <Tammy Landry, [employer] - Last Filed: 08/28/24 17:49> Patient Language: Persian <Tammy Landry, [employer] - Last Filed: 08/28/24 17:49> Prescriptions: New polyethylene glycol 3350 [Miralax] 17 gram/dose powder 17 g PO BID Qty: 238 0RF No Action albuterol sulfate 90 mcg/actuation HFA aerosol inhaler 1 inh INHALATION Q4H PRN (Reason: shortness of breath or wheezing) Qty: 18 2RF acetaminophen [Tylenol Arthritis Pain] 650 mg tablet extended release 650 mg PO Q8H PRN (Reason: pain) Qty: 10 0RF lidocaine [Lidoderm] 5 % adhesive patch,medicated 1 patch topical DAILY PRN (Reason: arthritic pain) Rx Instructions: leave on most painful area for up to 12 hrs. bilateral knees or back. Metamucil (with sugar) 3.4 gram powder in packet 1 tbsp PO DAILY ondansetron 4 mg tablet,disintegrating 4 mg PO Q8H PRN (Reason: nausea and vomiting) Qty: 7 0RF potassium chloride 10 mEq tablet extended release See Rx Instructions .ROUTE .COMPLEX Qty: 90 1RF Dose Instruction: TAKE 1 TABLET BY MOUTH EVERY DAY Rx Instructions: TAKE 1 TABLET BY MOUTH EVERY DAY omeprazole 40 mg capsule,delayed release(DR/EC) 40 mg PO DAILY Qty: 90 1RF memantine 5 mg tablet 5 mg PO BID Qty: 180 1RF bisoprolol fumarate 5 mg tablet See Rx Instructions .ROUTE .COMPLEX Qty: 90 1RF Dose Instruction: TAKE 1 TABLET BY MOUTH EVERY DAY Rx Instructions: TAKE 1 TABLET BY MOUTH EVERY DAY venlafaxine 75 mg capsule,extended release 24hr See Rx Instructions .ROUTE .COMPLEX Qty: 90 1RF Dose Instruction: TAKE 1 CAPSULE BY MOUTH EVERY DAY Rx Instructions: TAKE 1 CAPSULE BY MOUTH EVERY DAY levothyroxine 88 mcg tablet 88 mcg PO DAILY Qty: 90 1RF amlodipine 2.5 mg tablet 2.5 mg PO DAILY Qty: 90 1RF atorvastatin 40 mg tablet See Rx Instructions .ROUTE .COMPLEX Qty: 90 1RF Dose Instruction: TAKE 1 TABLET BY MOUTH EVERY DAY Rx Instructions: TAKE 1 TABLET BY MOUTH EVERY DAY losartan 100 mg tablet See Rx Instructions .ROUTE .COMPLEX Qty: 90 1RF Dose Instruction: TAKE 1 TABLET BY MOUTH EVERY DAY Rx Instructions: TAKE 1 TABLET BY MOUTH EVERY DAY fluticasone propion-salmeterol [Wixela Inhub] 500-50 mcg/dose blister with device 1 inh inhalation Q12H Qty: 60 5RF <Tammy Landry APRN - Last Filed: 08/28/24 17:49> Follow-up/Referrals: Ericka,Marina Mathews APRN [Primary Care Provider] - 1 Week <Tammy Landry APRN - Last Filed: 08/28/24 17:49>
[2024-08-28 17:58] LABS: Alanine Aminotransferase 27 U/L (6-35); Albumin Level 4.1 g/dL (3.5-5.1); Alkaline Phosphatase 116 U/L (38-126); Anion Gap 7 mmol/L (4-12); Aspartate Amino Transferase 39 U/L (14-36); Bilirubin,Total 0.7 mg/dL (0.2-1.3); Blood Urea Nitrogen 20 mg/dL (7-17); Calcium 9.4 mg/dL (8.4-10.2); Carbon Dioxide 28 mmol/L (22-30); Chloride 106 mmol/L (98-107); Estimated CRCL calculation 37 ml/min; Estimated Glomerular Filt Rate > 60; Glucose 92 mg/dL (65-110); Lipase 158 U/L (23-300); Potassium 3.6 mmol/L (3.4-5.0); Sodium 141 mmol/L (137-145)
[2024-08-28 18:08] LABS: Add Urine Microscopic? YES; Appearance Urine Clear (Clear); Bacteria Urine None Seen /hpf; Bilirubin Urine Negative (Negative); Blood Urine Negative (Negative); Color Urine Yellow (Yellow); Glucose Urine UA Negative (Negative); Ketones Urine Negative (Negative); Leukocyte Esterase Ur 2+ LEU/UL (Negative); Nitrate Urine Negative (Negative); Non Pathogenic Casts 0-2; Protein Urine Negative (Negative); RBC Urine 0-2 /hpf (0-2); Specific Grav Ur 1.018 (1.001-1.035); Squamous Epithelial Cell Urine Moderate /hpf (Few); Urobilinogen Urine 0.2 mg/dL (<2.0); pH Urine 5.5 (5.0-9.0)
[2024-08-28 18:10] LABS: Troponin I < 0.012 ng/mL (0.000-0.034)
--- OUTSIDE RECORDS SUMMARY | 2024-08-28 18:53 | XMS_ITS | Encounter Summary ---
Author Organization [facility] Healthcare Address [address] [place] [address] Care Team Providers Care Pharmacy District Manager Name Role Phone Marina Barnett NP Primary Care Provider +1- [phone] Reason for Referral * Cardiology (Routine) - Authorized Specialty Diagnoses / Procedures Referred By Contac t Referred To Contact Diagnoses Left-sided chest pain Procedures ECG 12 lead Devora Madison NP [address] [facility] [address] [place] [address] Phone: tel: fax: [facility] Medical Group Referral ID Status Reason Start Date Expiration Date V isits Requested Visits Authorized [id number] Authorized 08/28/2024 09/27/2025 1 1 Reason for Visit * Reason Comments Rib Injury L sided rib pain sta rted today. Reports yesterday she was picking up branches in the yard yesterday. 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
--- OUTSIDE RECORDS SUMMARY | 2024-08-28 18:53 | XMS_ITS | Clinical Summary ---
Author Organization [facility] [address] Address [address] [place] [address] Care Team Providers Care Environmental Protection Inspector Name Role Phone Marina Barnett NP Primary Care Provider +1- [phone] Allergies No known active allergies Medications amLODIPine [...] Description 08/28/2024 2:45 PM CDT Office Visit [facility] Medical Group Convenient Care at [address] [address] Devora Madison NP Left-sided chest pain (Primary Dx); Subacute cough 08/28/2024 2:40 PM CDT Ancillary Procedure [facility] Medical Group Imaging at [address] [address] Left-sided chest pain; Subacute cough from Last 3 Months Social History Tobacco Use Types Packs/Day Years Used Date Smoking Tobacco: Never Assessed Comments Unknown Sex and Gender Information Value Date Recorded Sex Assigned at Not on file Legal 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 Female 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 Gender Identity Not on file Sexual Orientation [...] signed by Porfirio GARRETT T: Report ID: [id number] Reading Location: [id number] Procedure Note Porfirio Wilburn MD - 08/28/2024 [...] signed by Porfirio GARRETT T: Report ID: [id number] Reading Location: [id number] us Devora Madison NP IMG XR PROCEDURES Final Result * ECG 12 lead (08/28/2024 2:54 PM CDT) us Devora Madison NP ECG ORDERABLES Final Result from Last 3 Months Insurance [facility] Care Teams Environmental Protection Inspector Relationship Specialty Start Date End Date Marina Barnett NP [address] [facility] [address] [place], [place] [id number] PCP - General Internal Medicine 08/28/24
--- OUTSIDE RECORDS SUMMARY | 2024-08-28 18:53 | XMS_ITS | Encounter Summary ---
Author Organization [facility] Healthcare Address [address] [place] [address] Care Team Providers Care Transportation Technician Name Role Phone Marina Barnett NP Primary Care Provider +1- [phone] Encounter Details Date Type Department Care Team (Latest Contact Info) Description 08/28/2024 2:40 PM CDT Ancillary Procedure [facility] Medical Group Imaging at [address] [address] Left-sided chest pain; Subacute cough Social History Tobacco Use Types Packs/Day Years Used Date Smoking Tobacco: Never Assessed Comments Unknown Sex and Gender Information Value Date Recorded Sex Assigned at Not on file 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 Gender Identity Not on file Sexual Orientation [...] signed by Porfirio GARRETT T: Report ID: [id number] Reading Location: [id number] Procedure Note Porfirio Wilburn MD - 08/28/2024 [...] signed by Porfirio GARRETT T: Report ID: [id number] Reading Location: [id number] Devora Madison NP IMSury XR PROCEDURES Final Result documented in this encounter Visit Diagnoses Diagnosis Left-sided chest pain Subacute cough documented in this encounter Care Teams Transportation Technician Relationship Specialty Start Date End Date Marina Barnett NP [address] [facility] [address] [place] [address] PCP - General Internal Medicine 08/28/24 documented as of this encounter
--- OUTSIDE RECORDS SUMMARY | 2024-08-28 18:53 | XMS_ITS | Referral Summary ---
Author Organization [facility] [address] Address [address] [place] [address] Care Team Providers Care Ell Tutor Name Role Phone Marina Barnett NP Primary Care Provider +1- [phone] Encounters Date Type Department Care Team Description 08/28/2024 2:40 PM CDT Ancillary Procedure [facility] Medical Group Imaging at [address] [address] Left-sided chest pain; Subacute cough 08/28/2024 2:45 PM CDT Office Visit [facility] Medical Group Convenient Care at [address] [address] Devora Madison NP Left-sided chest [...] on file 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 KR T: Report ID: [id number] Reading Location: [id number] Procedure Note Porfirio Wilburn MD - 08/28/2024 [...] Porfirio Wilburn M.D. KR T: Report ID: [id number] Reading Location: [place] [id number] us Devora Madison NP IMG XR PROCEDURES Final Result * ECG 12 lead (08/28/2024 2:54 PM CDT) us Devora Madison NP ECG ORDERABLES Final Result from Last 3 Months Insurance [facility] Care Teams Ell Tutor Relationship Specialty Start Date End Date Marina Barnett NP [address] [place] [address] PCP - General Internal Medicine 08/28/24
--- OUTSIDE RECORDS SUMMARY | 2024-08-28 18:53 | XMS_ITS | Clinical Summary ---
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
--- OUTSIDE RECORDS SUMMARY | 2024-08-28 18:54 | XMS_ITS | Encounter Summary ---
Author Organization [employer] Address [address] [place] [address] Care Team Providers Care Employee Service Officer Name Role Phone Gunnar Plummer MD, Abdi Murphy Primary Care Provid er Encounter Details Date Type Department Care Team (Late st Contact Info) Description 07/14/[address] [facility] Support [facility]. ([facility]) [address] 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
--- OUTSIDE RECORDS SUMMARY | 2024-08-28 18:54 | XMS_ITS | Encounter Summary ---
Author Organization [facility] Address 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
[2024-08-28 19:39] VITALS: BP 180/86; PULSE 58; RESP 16; O2SAT 96
[2024-08-28 20:14] LABS: D Dimer 0.53 ug/mL (<0.48)
[2024-08-28 20:40] VITALS: BP 161/95; PULSE 60; RESP 15; O2SAT 96
[2024-08-28] MEDS: MAGNESIUM CITRATE 300 ML BTL PO (21:10)
== END 2024-08-28 21:15 | disposition home or self-care (01) ==
PROVIDERS: Registered Nurse; Emergency Provider Emergency Medicine; PCP Nurse Practitioner
DX: K59.00 Constipation, unspecified (principal); K21.9 Gastro-esophageal reflux disease without esophagitis; E03.9 Hypothyroidism, unspecified; I10 Essential (primary) hypertension; E78.00 Pure hypercholesterolemia, unspecified; J44.9 Chronic obstructive pulmonary disease, unspecified; Z87.891 Personal history of nicotine dependence
CPT/HCPCS: 36415; 74018; 80053; 81001; 83690; 84484; 85025; 85380; 93005; 99284; A9270

== ENCOUNTER 2024-08-30 12:44 | Emergency (ER) | payer OTHER, SELFPAY ==
--- NOTE | ~2024-08-30 | CT_ITS ---
CLINICAL INDICATION: Left-sided abdominal pain and left flank pain COMPARISON: 04/09/2023. TECHNIQUE: Multiple contiguous axial images of the abdomen and pelvis were performed following the ad ministration of with 100 mL Omnipaque-350 intravenous contrast The dose-length product (DLP) was 423.06 mGy-cm. Automated exposure control and iterative reconstruction technique were employed. FINDINGS/OBSERVATIONS: Visualized lower thorax: The bilateral lung bases are clear. The heart is of normal size, without pericardial effusion. Small hiatal hernia is present. Liver: Stable focus of decreased attenuation within segment 5 of the liver, unchanged from 04/09/2023. The remainder of the liver demonstrates otherwise homogeneous enhancement and is not enlarged. Gallbladder and biliary system: The gallbladder is distended, with layering calcified stones along the fundus of the gallbladder, and otherwise unremarkable. Pancreas: The pancreas enhances homogeneously without ductal dilatation. Spleen: Punctate calcifications identified within the splenic parenchyma, suggesting prior granulomat ous disease. Two areas of decreased attenuation are identified within the splenic parenchyma, both measuring less than a centimeter, indeterminate in origin. Focused ultrasound may be performed for further evaluation. The remainder of the spleen otherwise enhances homogeneously and is not enlarged. Kidneys: The bilateral kidneys enhance symmetrically without hydronephrosis or renal calculi. Adrenal glands: Unremarkable. Gastrointestinal tract: Colonic diverticulosis without surrounding inflammatory change. Fecal stasis within the colon. Appendix: The appendix is not definitively visualized. However, no pericecal inflammatory change is identified suggest the presence of acute appendicitis. Vasculature: Calcified atherosclerotic disease. Lymph nodes: No pathologically enlarged or morphologically suspicious lymph nodes within the retroperitoneum or at the root of the mesentery. Pelvic structures: The bladder is decompressed, limiting its evaluation. The uterus is either atrophic or surgically absent. Body wall and musculoskeletal: Fat-containing left inguinal hernia. Age-appropriate degenerative disease within the lumbosacral spine. IMPRESSION: No obstructive uropathy. Fat-containing left inguinal hernia. Subcentimeter decreased attenuation within the spleen, an interval change from prior for which focuse d ultrasound is suggested. Reviewed, dictated and finalized at location A. IMPRESSION: No obstructive uropathy. Fat-containing left inguinal hernia. Subcentimeter decreased attenuation within the spleen, an interval change from prior for which focused ultrasound is suggested.
--- NOTE | ~2024-08-30 | XR_ITS ---
HISTORY: fall COMPARISON: 03/16/2024 TECHNIQUE: 4 views of the left knee were performed. FINDINGS: No acute or subacute fracture, erosion, lytic or sclerotic lesion. Medial and lateral tibiofemoral joint space narrowing is identified. No suprapatellar joint effusion is identified. The infrapatellar joint space is clear. Ossification of the quadriceps tendon is present. Densely calcified atherosclerotic disease is redemonstrated. IMPRESSION: Degenerative disease, without acute fracture. Reviewed, dictated and finalized at location A.
--- OUTSIDE RECORDS SUMMARY | 2024-08-30 12:46 | XMS_ITS | Encounter Summary ---
Author Organization [employer] Address 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
--- OUTSIDE RECORDS SUMMARY | 2024-08-30 12:46 | XMS_ITS | Clinical Summary ---
Author Organization [facility] [address] Address [address] [place] [address] Care Team Providers Care Performance Improvement Director Name Role Phone Marina Barnett NP Primary Care Provider +1- [phone] Allergies No known active allergies Medications amLODIPine [...] Description 08/28/2024 2:45 PM CDT Office Visit [facility] Medical Group Convenient Care at [address] [address] Devora Madison NP Left-sided chest pain (Primary Dx); Subacute cough 08/28/2024 2:40 PM CDT Ancillary Procedure [facility] Medical Group Imaging at [address] [address] Left-sided chest pain; Subacute cough from Last 3 Months Social History Tobacco Use Types Packs/Day Years Used Date Smoking Tobacco: Never Assessed Comments Unknown Sex and Gender Information Value Date Recorded Sex Assigned at Not on file 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 Gender Identity Not on file Sexual Orientation [...] signed by Porfirio GARRETT T: Report ID: [id number] Reading Location: [id number] Procedure Note Porfirio Wilburn MD - 08/28/2024 [...] signed by Porfirio GARRETT T: Report ID: [id number] Reading Location: [id number] us Devora Madison NP IMG XR PROCEDURES Final Result * ECG 12 lead (08/28/2024 2:54 PM CDT) us Devora Madison NP ECG ORDERABLES Final Result from Last 3 Months Insurance [facility] [facility] Care Teams Performance Improvement Director Relationship Specialty Start Date End Date Marina Barnett NP [address] [facility] [address] [place], [place] [address] PCP - General Internal Medicine 08/28/24
--- OUTSIDE RECORDS SUMMARY | 2024-08-30 12:46 | XMS_ITS | Encounter Summary ---
Author Organization [employer] Address [address] [place] [address] Care Team Providers Care Tomato Pulper Operator Name Role Phone Gunnar Plummer MD, Abdi Murphy Primary Care Provid er Encounter Details Date Type Department Care Team (Late st Contact Info) Description 07/14/[address] [facility] Support Serv. ([facility]) [address] 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
--- OUTSIDE RECORDS SUMMARY | 2024-08-30 12:46 | XMS_ITS | Clinical Summary ---
Author Organization [facility] Address [address] [place] [address] Care Team Providers Care Scallop Cutter Machine Name Role Phone Gunnar Plummer MD, Abdi Murphy Primary Care 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
--- OUTSIDE RECORDS SUMMARY | 2024-08-30 12:46 | XMS_ITS | Referral Summary ---
Author Organization [facility] [place] [address] Address [address] [place] [address] Care Team Providers Care Care Professional Name Role Phone Marina Barnett NP Primary Care Provider +1- [phone] Encounters Date Type Department Care Team Description 08/28/2024 2:40 PM CDT Ancillary Procedure [facility] Medical [facility] Imaging at [address] [address] Left-sided chest pain; Subacute cough 08/28/2024 2:45 PM CDT Office Visit [facility] Convenient Care at [address] [address] Devora Madison NP Left-sided chest [...] on file 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 KR T: Report ID: [id number] Reading Location: [id number] Procedure Note Porfirio Wilburn MD - 08/28/2024 [...] Porfirio Wilburn M.D. KR T: Report ID: [id number] Reading Location: [place] [address] us Devora Madison NP IMG XR PROCEDURES Final Result * ECG 12 lead (08/28/2024 2:54 PM CDT) us Devora Madison NP ECG ORDERABLES Final Result from Last 3 Months Insurance [facility] Care Teams Care Professional Relationship Specialty Start Date End Date Marina Barnett NP [address] [place] [address] PCP - General Internal Medicine 08/28/24
--- NOTE | 2024-08-30 13:17 | ED.ABDPAIN ---
HPI - Abdominal Pain General Chief Complaint: Abdominal Pain Stated Complaint: ABD PAIN Time Seen by Provider: 08/30/24 13:17 Source: patient Mode of arrival: ambulatory Limitations: no limitations History of Present Illness HPI narrative: 83 YEARS OLD WHITE FEMALE CAME BY PRIVATE CAR COMPLAINING OF LEFT ABDOMINAL PAIN AND LEFT FLANK PAIN STARTED 1 DAY AGO, ACHING, NO AGGRAVATING OR RELIEVING FACTORS. SHE DENIES ANY FEVER, CHILLS, NAUSEA, VOMITING, OR DIARRHEA. PATIENT WAS SEEN IN OUR FACILITY 2 DAYS AGO, AND CURRENTLY ON CONSTIPATION MEDICATION. MD elicited complaint: abdominal pain Related Data Home Medications ?Medication ?Instructions ?Recorded ?Confirmed ?Last Taken ?Type lidocaine 5 % topical patch 1 patch topical DAILY PRN 04/08/23 03/16/24 Unknown History (Lidoderm) arthritic pain psyllium husk (with sugar) 3.4 1 tbsp PO DAILY 04/08/23 03/16/24 Unknown History gram oral powder packet (Metamucil (with sugar)) Allergies Allergy/AdvReac Type Severity Reaction Status Date / Time No Known Allergies Allergy Verified 08/28/24 17:02 Review of Systems Review of Systems: All systems reviewed & are unremarkable except as noted in HPI and below PMFSH Past Medical History Medical History Colonic polyp Diverticulosis of intestine without perforation or abscess without bleeding Colon cancer screening Gastroesophageal reflux disease Hypothyroidism Osteoarthritis of left knee Anxiety disorder, unspecified 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 Chong History of cataract extraction History of breast biopsy History of hemorrhoidectomy 2021, Dr. Thompson History of hysterectomy (2001) Family History Family History Sibling Family history of heart disease in male family member before age 55 Family history of chronic obstructive pulmonary disease Lung cancer Mother Family history of congestive heart failure Father Family history of heart disease in male family member before age 55 Family history of alcoholism, Onset Age: 47 Other Family history of Alzheimer's disease Grandparent Family history of cardiovascular disease Social History Social History Social History: Surrogate medical decision maker: Tomasa Lujan, niece. Code status: Full code. Smoking packs per day: 1 Smoking cigarettes per day: 20.0 Years smoked: 25 Smoking pack-years: 25.00 Smoking status: Former smoker Tobacco type: cigarettes Second hand tobacco smoke exposure: No Smoking end date: 04/08/92 Alcohol intake: current Drinks per week: 7 Substance use: never Substance use type: does not use Do You Feel Safe in your Home?: Yes Lack of Transportation: No Lack of Food: Never True Current Housing: I Have Housing Concerned About Future Housing: No Difficulty Paying Gas/Electric Bills: No Difficulty Paying for Meds: No Currently Unemployed: No Education: Don't Know Difficulty w/ Childcare or Family Care: No Living arrangements: with family Additional living arrangements comments: Lives in [place]. Disabled brother lives with her and she helps care for him. Additional occupation/education comments: Works part-time at [employer] Spiritual care concerns: No Exam Narrative: General appearance: Well-developed, well-nourished Skin: Normal color Head: Normocephalic, nontraumatic Eyes: Clear conjunctiva ENT: Oropharynx normal, ears normal, nose normal Neck: Supple, nontender Chest and respiratory: Airway patent, no respiratory distress, no accessory muscle use Heart: Regular rate/rhythm Abdomen: Soft, nontender, no organomegaly, quiet bowel sounds Vascular: Normal peripheral pulses, normal capillary refill. 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 is normal as tested, no gross motor deficit Course Vital Signs Vital signs: Vital Signs Pulse Rate 80 08/30/24 13:20 Respiratory Rate 14 08/30/24 13:20 Blood Pressure 137/90 08/30/24 13:20 Pulse Oximetry 100 08/30/24 13:20 Pulse Rate 70 08/30/24 14:40 Respiratory Rate 18 08/30/24 14:40 Blood Pressure 164/91 H 08/30/24 14:40 Pulse Oximetry 95 08/30/24 14:40 MDM - Abdominal Pain MDM Narrative Medical decision making narrative: DIFFERENTIAL DIAGNOSIS INCLUDE ABDOMINAL WALL MUSCULAR PAIN, HYPER ACTIVE BOWEL MOVEMENT SECONDARY TO LAXATIVE, ELECTROLYTE IMBALANCE, DEHYDRATION, URINARY TRACT INFECTION, KIDNEY STONE, DIVERTICULITIS VITAL SIGNS ARE STABLE PHYSICAL EXAMINATION SHOWING NO SIGNIFICANT ABNORMALITY BLOOD WORKUP TODAY INCLUDES CBC, CMP, LIPASE SHOWED NO ACUTE ABNORMALITIES URINALYSIS SHOWED NO EVIDENCE OF INFECTION CT ABDOMEN AND PELVIS WITH IV CONTRAST SHOWED NO ACUTE ABNORMALITIES DIAGNOSIS ABDOMINAL PAIN OF UNKNOWN ETIOLOGY DISCHARGED ON TYLENOL NEEDED THE PT WAS DISCHARGED TO HOME.THE PT,S CONDITION UPON DISCHARGE WAS FAIR,EDUCATION WAS PROVIDED TO THE PT IN REFERENCE TO THE FINAL IMPRESSION,DISCHARGE STUDY RESULTS,TREATMENT,PROGNOSIS AND NEED FOR FOLLOW UP . Differential Diagnosis Differential diagnosis: Likely other; Unlikely abdominal pain Medical Records Attestation: I reviewed the patient's medical records. Lab Data Attestation: I reviewed the patient's lab results. 08/30/24 13:34 08/30/24 13:34 Labs: Lab Results 08/30/24 08/30/24 Range/Units 13:34 14:07 WBC 8.4 (4.5-10.0) K/mm3 RBC 5.11 (4.2-5.4) M/mm3 Hgb 15.3 H (12.0-15.0) g/dL Hct 46.1 (37.0-47.0) % MCV 90.2 (80-100) fl MCH 29.9 (26-34) pg MCHC 33.2 (32-36) g/dl RDW 12.8 (11.5-14.5) % Plt Count 274 (150-375) k/mm3 MPV 9.4 (7.4-10.4) fl Immature Gran % (Auto) 0.4 (0-0.5) % Neut % (Auto) 75.3 H (45.5-73.1) % Lymph % (Auto) 10.8 L (18.3-44.2) % [place] % (Auto) 12.3 H (2.6-8.5) % Eos % (Auto) 0.7 (0-4.4) % Baso % (Auto) 0.5 (0.2-1.2) % Lymph # (Auto) 0.91 (0.9-3.2) K/mm3 [place] # (Auto) 1.0 H (0.1-0.6) K/mm3 Eos # (Auto) 0.1 (0-0.3) K/mm3 Baso # (Auto) 0.0 (0.0-0.1) K/mm3 Abs Immat Gran (auto) 0.03 (0.00-0.031) K/mm3 Absolute Neuts (auto) 6.4 (1.3-6.7) K/mm3 Absolute Nucleated RBC 0.000 (0.0-0.012) K/mm3 Nucleated RBC % 0.0 (0.0-0.2) % Sodium 136 L (137-145) mmol/L Potassium 3.5 (3.4-5.0) mmol/L Chloride 99 (98-107) mmol/L Carbon Dioxide 30 (22-30) mmol/L Anion Gap 7 (4-12) mmol/L BUN 12 D (7-17) mg/dL Creatinine 0.84 (0.7-1.0) mg/dL Estim Creat Clear Calc 40 ml/min Estimated GFR > 60 (59 - ) Glucose 102 (65-110) mg/dL Lactic Acid 1.0 (0.7-2.0) mmol/L Calcium 9.0 (8.4-10.2) mg/dL Total Bilirubin 1.4 H (0.2-1.3) mg/dL AST 35 (14-36) U/L ALT 25 (6-35) U/L Alkaline Phosphatase 99 (38-126) U/L Total Protein 8.0 (6.3-8.2) g/dL Albumin 4.1 (3.5-5.1) g/dL Lipase 89 (23-300) U/L Urine Color Dark yellow (Yellow) Urine Appearance Clear (Clear) Urine pH 5.5 (5.0-9.0) Ur Specific [place] 1.023 (1.001-1.035) Urine Protein 1+ H (Negative) mg/dL Urine Glucose (UA) Negative (Negative) mg/dL Urine Ketones 1+ H (Negative) mg/dL Ur Blood (Man) 2+ H (Negative) Urine Nitrate Negative (Negative) Urine Bilirubin 2+ H (Negative) Urine Urobilinogen 1.0 (<2.0) mg/dL Add Ur Microanalysis Reviewed Leukocyte Esterase Rfl Trace H (Negative) GEOFF/UL Urine RBC 11-20 H (0-2) /hpf Urine WBC 6-10 H (0-3) /hpf Ur Squamous Epith Cells None seen (Few) /hpf Urine Bacteria None seen /hpf Urine Casts 11-20 Hyaline Casts Present (None) /lpf Urine Mucus Present /lpf Imaging Data Radiologist's impression: ITS Impressions Knee X-Ray 08/30/24 13:59 IMPRESSION: Degenerative disease, without acute fracture. Abdomen/Pelvis CT 08/30/24 14:24 IMPRESSION: No obstructive uropathy. Fat-containing left inguinal hernia. Subcentimeter decreased attenuation within the spleen, an interval change from prior for which focused ultrasound is suggested. Critical Care Time Critical Care Time Critical Care Time: No Discharge Plan Discharge Clinical Impression: Abdominal pain Patient Disposition: Home Condition: Stable Instructions: Abdominal Pain (ED) Additional Instructions: RETURN IF SYMPTOMS ARE WORSENING , CALL YOUR FAMILY PHYSICIAN FOR APPOINTMENT, TAKE TYLENOL NEEDED FOR ACHES AND PAIN, CONTINUE HOME MEDICATIONS. Patient Language: Czech Prescriptions: No Action albuterol sulfate 90 mcg/actuation HFA aerosol inhaler 1 inh INHALATION Q4H PRN (Reason: shortness of breath or wheezing) Qty: 18 2RF acetaminophen [Tylenol Arthritis Pain] 650 mg tablet extended release 650 mg PO Q8H PRN (Reason: pain) Qty: 10 0RF lidocaine [Lidoderm] 5 % adhesive patch,medicated 1 patch topical DAILY PRN (Reason: arthritic pain) Rx Instructions: leave on most painful area for up to 12 hrs. bilateral knees or back. Metamucil (with sugar) 3.4 gram powder in packet 1 tbsp PO DAILY ondansetron 4 mg tablet,disintegrating 4 mg PO Q8H PRN (Reason: nausea and vomiting) Qty: 7 0RF polyethylene glycol 3350 [Miralax] 17 gram/dose powder 17 g PO BID Qty: 238 0RF potassium chloride 10 mEq tablet extended release See Rx Instructions .ROUTE .COMPLEX Qty: 90 1RF Dose Instruction: TAKE 1 TABLET BY MOUTH EVERY DAY Rx Instructions: TAKE 1 TABLET BY MOUTH EVERY DAY omeprazole 40 mg capsule,delayed release(DR/EC) 40 mg PO DAILY Qty: 90 1RF memantine 5 mg tablet 5 mg PO BID Qty: 180 1RF bisoprolol fumarate 5 mg tablet See Rx Instructions .ROUTE .COMPLEX Qty: 90 1RF Dose Instruction: TAKE 1 TABLET BY MOUTH EVERY DAY Rx Instructions: TAKE 1 TABLET BY MOUTH EVERY DAY venlafaxine 75 mg capsule,extended release 24hr See Rx Instructions .ROUTE .COMPLEX Qty: 90 1RF Dose Instruction: TAKE 1 CAPSULE BY MOUTH EVERY DAY Rx Instructions: TAKE 1 CAPSULE BY MOUTH EVERY DAY levothyroxine 88 mcg tablet 88 mcg PO DAILY Qty: 90 1RF amlodipine 2.5 mg tablet 2.5 mg PO DAILY Qty: 90 1RF atorvastatin 40 mg tablet See Rx Instructions .ROUTE .COMPLEX Qty: 90 1RF Dose Instruction: TAKE 1 TABLET BY MOUTH EVERY DAY Rx Instructions: TAKE 1 TABLET BY MOUTH EVERY DAY losartan 100 mg tablet See Rx Instructions .ROUTE .COMPLEX Qty: 90 1RF Dose Instruction: TAKE 1 TABLET BY MOUTH EVERY DAY Rx Instructions: TAKE 1 TABLET BY MOUTH EVERY DAY fluticasone propion-salmeterol [Wixela Inhub] 500-50 mcg/dose blister with device 1 inh inhalation Q12H Qty: 60 5RF Follow-up/Referrals: Ericka,Marina Mathews, MONTESSORI PROGRAM DIRECTOR [Primary Care Provider] -
--- NOTE | 2024-08-30 13:19 | ECG_ITS ---
Test Date: 2024-08-30 14:54:56 Measurements Intervals Elizabeth Rate: 68 P: 66 KS: 175 QRS: 14 QRSD: 93 T: 50 QT: 428 QTc: 455 Interpretive Statements SINUS RHYTHM Compared to ECG 08/28/2024 17:44:03 NO SIGNIFICANT CHANGE Electronically Signed On 08-30-2024 20:49:05 CDT by Alfonso Mccracken M.D.
[2024-08-30 13:20] VITALS: BP 137/90; PULSE 80; RESP 14; O2SAT 100
--- OUTSIDE RECORDS SUMMARY | 2024-08-30 13:29 | XMS_ITS | Encounter Summary ---
Author Organization [facility] Address 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
--- OUTSIDE RECORDS SUMMARY | 2024-08-30 13:29 | XMS_ITS | Clinical Summary ---
Author Organization [facility] [place] [address] Address [address] [place] [address] Care Team Providers Care Inseam Leveler Name Role Phone Marina Barnett NP Primary Care Provider +1- [phone] Allergies No known active allergies Medications amLODIPine [...] Description 08/28/2024 2:45 PM CDT Office Visit [facility] Medical [facility] Convenient Care at [address] [address] Devora Madison NP Left-sided chest pain (Primary Dx); Subacute cough 08/28/2024 2:40 PM CDT Ancillary Procedure [facility] Medical Group Imaging at [address] [address] Left-sided chest pain; Subacute cough from Last 3 Months Social History Tobacco Use Types Packs/Day Years Used Date Smoking Tobacco: Never Assessed Comments Unknown Sex and Gender Information Value Date Recorded Sex Assigned at Not on file 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 Gender Identity Not on file Sexual Orientation [...] signed by Porfirio GARRETT T: Report ID: [id number] Reading Location: [id number] Procedure Note Porfirio Wilburn MD - 08/28/2024 [...] signed by Porfirio GARRETT T: Report ID: [id number] Reading Location: [id number] us Devora Madison NP IMG XR PROCEDURES Final Result * ECG 12 lead (08/28/2024 2:54 PM CDT) us Devora Madison NP ECG ORDERABLES Final Result from Last 3 Months Insurance [facility] Care Teams Inseam Leveler Relationship Specialty Start Date End Date Marina Barnett NP [address] [place], [place] [id number] PCP - General Internal Medicine 08/28/24
--- OUTSIDE RECORDS SUMMARY | 2024-08-30 13:29 | XMS_ITS | Clinical Summary ---
Author Organization [facility] Address 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
--- OUTSIDE RECORDS SUMMARY | 2024-08-30 13:29 | XMS_ITS | Referral Summary ---
Author Organization [facility] [place] [address] Address [address] [place] [address] Care Team Providers Care Telecommunications Repairer Name Role Phone Marina Barnett NP Primary Care Provider +1- [phone] Encounters Date Type Department Care Team Description 08/28/2024 2:40 PM CDT Ancillary Procedure [facility] Medical Group Imaging at [address] [address] Left-sided chest pain; Subacute cough 08/28/2024 2:45 PM CDT Office Visit 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 KR T: Report ID: [id number] Reading Location: [id number] Procedure Note Porfirio Wilburn MD - 08/28/2024 [...] Porfirio Wilburn M.D. KR T: Report ID: [id number] Reading Location: [place] [address] us Devora Madison NP IMG XR PROCEDURES Final Result * ECG 12 lead (08/28/2024 2:54 PM CDT) us Devora Madison NP ECG ORDERABLES Final Result from Last 3 Months Insurance [facility] Care Teams Telecommunications Repairer Relationship Specialty Start Date End Date Marina Barnett NP [address] [place] [address] PCP - General Internal Medicine 08/28/24
--- OUTSIDE RECORDS SUMMARY | 2024-08-30 13:29 | XMS_ITS | Encounter Summary ---
Author Organization [email or web address] Address [address] [place] [address] Care Team Providers Care Natural Resources Extension Educator Name Role Phone Gunnar Plummer MD, Abdi Murphy Primary Care Provid er Encounter Details Date Type Department Care Team (Late st Contact Info) Description 07/14/[address] [facility] [address] [place] [address] Davey Barnes Social History Tobacco Use Types Packs/Day Years Used Date Smoking Tobacco: Never Assessed Comments Unknown Sex and Gender Information Value Date Recorded Sex Assigned at Not on file Legal Sex Female 3:03 AM STAND IN Gender Identity Not on file Sexual Orientation Not on file documented as of this encounter Plan of Treatment Not on file documented as of this encounter Visit Diagnoses Not on filedocumented in this encounter Care Teams Natural Resources Extension Educator Relationship Specialty Start Date End Date Abdi Maher Jr., MD [address] [place] [address] PCP - General 07/22/02 documented as of this encounter
[2024-08-30 13:40] LABS: Basophils Percent Auto 0.5 % (0.2-1.2); Eosinophils Absolute Auto 0.1 K/mm3 (0-0.3); Eosinophils Percent Auto 0.7 % (0-4.4); Hematocrit 46.1 % (37.0-47.0); Hemoglobin 15.3 g/dL (12.0-15.0); Immature Granulocyte Absolute 0.03 K/mm3 (0.00-0.031); Immature Granulocyte Percent A 0.4 % (0-0.5); Lymphocytes Absolute Auto 0.91 K/mm3 (0.9-3.2); Lymphocytes Percent Auto 10.8 % (18.3-44.2); Mean Corpuscular HGB Conc 33.2 g/dl (32-36); Mean Corpuscular Hemoglobin 29.9 pg (26-34); Mean Corpuscular Volume 90.2 fl (80-100); Mean Platelet Volume 9.4 fl (7.4-10.4); Monocytes Percent Auto 12.3 % (2.6-8.5); Neutrophils Absolute Auto 6.4 K/mm3 (1.3-6.7); Neutrophils Percent Auto 75.3 % (45.5-73.1); Platelet Count Result 274 k/mm3 (150-375); Red Blood Count 5.11 M/mm3 (4.2-5.4); Red Cell Distribution Width 12.8 % (11.5-14.5); White Blood Count 8.4 K/mm3 (4.5-10.0)
[2024-08-30 13:50] LABS: Alanine Aminotransferase 25 U/L (6-35); Albumin Level 4.1 g/dL (3.5-5.1); Alkaline Phosphatase 99 U/L (38-126); Anion Gap 7 mmol/L (4-12); Aspartate Amino Transferase 35 U/L (14-36); Bilirubin,Total 1.4 mg/dL (0.2-1.3); Blood Urea Nitrogen 12 mg/dL (7-17); Carbon Dioxide 30 mmol/L (22-30); Chloride 99 mmol/L (98-107); Estimated CRCL calculation 40 ml/min; Estimated Glomerular Filt Rate > 60; Glucose 102 mg/dL (65-110); Lipase 89 U/L (23-300); Potassium 3.5 mmol/L (3.4-5.0); Sodium 136 mmol/L (137-145)
[2024-08-30 14:25] LABS: Add Urine Microscopic? YES; Appearance Urine Clear (Clear); Bacteria Urine None Seen /hpf; Bilirubin Urine 2+ (Negative); Blood Urine 2+ (Negative); Color Urine Dark Yellow (Yellow); Glucose Urine UA Negative (Negative); Hyaline Casts Urine Present /lpf; Ketones Urine 1+ mg/dL (Negative); Leukocyte Esterase Ur Trace LEU/UL (Negative); Mucus Urine Present /lpf; Need Manual Microscopic Reviewed; Nitrate Urine Negative (Negative); Protein Urine 1+ mg/dL (Negative); Specific Grav Ur 1.023 (1.001-1.035); Squamous Epithelial Cell Urine None Seen /hpf (Few); pH Urine 5.5 (5.0-9.0)
[2024-08-30 14:40] VITALS: BP 164/91; PULSE 70; RESP 18; O2SAT 95
[2024-08-30] MEDS: SODIUM CHLORIDE 0.9% IV 1,000 ML 999 ML IV CONT (14:41)
[2024-08-30] MEDS: MORPHINE SULFATE (*CRX) 4 MG/ML INJ IV PUSH (14:41)
[2024-08-30] MEDS: ONDANSETRON INJ 4 MG/2 ML VIAL IV PUSH (14:41)
[2024-08-30 16:45] VITALS: BP 152/88; PULSE 90; RESP 18; O2SAT 98
== END 2024-08-30 16:47 | disposition home or self-care (01) ==
PROVIDERS: Emergency Provider Emergency Medicine; PCP Nurse Practitioner
DX: R10.9 Unspecified abdominal pain (principal); K57.30 Diverticulosis of large intestine without perforation or abscess without bleeding; K21.9 Gastro-esophageal reflux disease without esophagitis; E03.9 Hypothyroidism, unspecified; F41.9 Anxiety disorder, unspecified; J44.9 Chronic obstructive pulmonary disease, unspecified; I10 Essential (primary) hypertension; E78.5 Hyperlipidemia, unspecified
CPT/HCPCS: 36415; 73562; 74177; 80053; 81001; 83605; 83690; 85025; 87086; 93005; 96361; 96374; 96375; 99284; J2270; J2405; J7030; Q9967

== ENCOUNTER 2024-08-31 03:54 | Emergency (ER) | payer OTHER, SELFPAY ==
[2024-08-31] VITALS (11 sets, daily range): BP systolic 112–150; BP diastolic 71–81; PULSE 58–88; RESP 12–21; TEMP 36.3; O2SAT 93–100
--- NOTE | ~2024-08-31 | XR_ITS ---
CHEST RADIOGRAPH CLINICAL HISTORY: CHEST PAIN , epigastric pain . COMPARISON: None available TECHNIQUE: Single portable view of the chest. FINDINGS The cardiomediastinal silhouette is unremarkable. Coarse interstitial lung markings are identified bilaterally, likely chronic. The lungs are otherwise clear. IMPRESSION: No focal infiltrate or effusion. Reviewed, dictated and finalized at location A.
--- NOTE | 2024-08-31 04:01 | ECG_ITS ---
Test Date: 2024-08-31 04:03:06 Measurements Intervals [place] Rate: 62 P: 50 [place]: 176 QRS: 11 QRSD: 91 T: 31 QT: 419 QTc: 428 Interpretive Statements SINUS RHYTHM PROBABLE INFERIOR MYOCARDIAL INFARCTION , PROBABLY OLD [35 ms Q WAVE IN II/aVF] Compared to ECG 08/30/2024 14:54:56 Myocardial infarct finding now present Electronically Signed On 08-31-2024 15:01:09 CDT by Alfonso Mccracken M.D.
[2024-08-31] MEDS: ASPIRIN 81 MG CHEWABLE TABLET 324 MG PO (04:14)
[2024-08-31 04:21] LABS: Basophils Percent Auto 0.5 % (0.2-1.2); Eosinophils Absolute Auto 0.1 K/mm3 (0-0.3); Eosinophils Percent Auto 2.1 % (0-4.4); Hematocrit 42.4 % (37.0-47.0); Hemoglobin 13.9 g/dL (12.0-15.0); Immature Granulocyte Absolute 0.02 K/mm3 (0.00-0.031); Immature Granulocyte Percent A 0.3 % (0-0.5); Lymphocytes Absolute Auto 0.94 K/mm3 (0.9-3.2); Lymphocytes Percent Auto 15.2 % (18.3-44.2); Mean Corpuscular HGB Conc 32.8 g/dl (32-36); Mean Corpuscular Volume 91.4 fl (80-100); Mean Platelet Volume 9.5 fl (7.4-10.4); Monocytes Absolute Auto 0.9 K/mm3 (0.1-0.6); Neutrophils Absolute Auto 4.1 K/mm3 (1.3-6.7); Neutrophils Percent Auto 66.9 % (45.5-73.1); Platelet Count Result 222 k/mm3 (150-375); Red Blood Count 4.64 M/mm3 (4.2-5.4); Red Cell Distribution Width 13.2 % (11.5-14.5); White Blood Count 6.2 K/mm3 (4.5-10.0)
[2024-08-31 04:30] LABS: Alanine Aminotransferase 20 U/L (6-35); Albumin Level 3.8 g/dL (3.5-5.1); Alkaline Phosphatase 91 U/L (38-126); Anion Gap 7 mmol/L (4-12); Aspartate Amino Transferase 31 U/L (14-36); Bilirubin,Total 1.2 mg/dL (0.2-1.3); Blood Urea Nitrogen 13 mg/dL (7-17); Calcium 8.6 mg/dL (8.4-10.2); Carbon Dioxide 25 mmol/L (22-30); Chloride 104 mmol/L (98-107); Estimated CRCL calculation 39 ml/min; Estimated Glomerular Filt Rate > 60; Glucose 82 mg/dL (65-110); Lipase 66 U/L (23-300); Potassium 3.3 mmol/L (3.4-5.0); Sodium 136 mmol/L (137-145)
[2024-08-31 04:36] LABS: INR 1.1; Prothrombin Time 14.5 Seconds (11.1-14.7)
[2024-08-31 04:38] LABS: Partial Thromboplastin Time 31.9 Seconds (22.3-36.8)
[2024-08-31 04:42] LABS: Troponin I < 0.012 ng/mL (0.000-0.034)
[2024-08-31 06:42] LABS: Add Urine Microscopic? YES; Appearance Urine Clear (Clear); Bacteria Urine 1+ /hpf; Bilirubin Urine Negative (Negative); Blood Urine 1+ (Negative); Color Urine Yellow (Yellow); Glucose Urine UA Negative (Negative); Ketones Urine Trace mg/dL (Negative); Leukocyte Esterase Ur 1+ LEU/UL (Negative); Nitrate Urine Negative (Negative); Protein Urine Negative (Negative); RBC Urine 0-2 /hpf (0-2); Specific Grav Ur 1.037 (1.001-1.035); Squamous Epithelial Cell Urine None Seen /hpf (Few); Urobilinogen Urine 0.2 mg/dL (<2.0); pH Urine 5.5 (5.0-9.0)
--- OUTSIDE RECORDS SUMMARY | 2024-08-31 07:24 | XMS_ITS | Clinical Summary ---
Author Organization [facility] [place] [address] Address [address] [place] [address] Care Team Providers Care Shuttle Car Operator Name Role Phone Marina Barnett NP Primary Care Provider +1- [phone] Allergies No known active allergies Medications amLODIPine [...] Description 08/28/2024 2:45 PM CDT Office Visit [facility] Convenient Care at [address] [address] Devora Madison NP Left-sided chest pain (Primary Dx); Subacute cough 08/28/2024 2:40 PM CDT Ancillary Procedure [facility] Medical [facility] Imaging at [address] [address] Left-sided chest pain; Subacute cough from Last 3 Months Social History Tobacco Use Types Packs/Day Years Used Date Smoking Tobacco: Never Assessed Comments Unknown Sex and Gender Information Value Date Recorded Sex Assigned at Not on file 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 Gender Identity Not on file Sexual [...] signed by Porfirio GARRETT T: Report ID: [id number] Reading Location: [id number] Procedure Note Porfirio Wilburn MD - 08/28/2024 [...] signed by Porfirio GARRETT T: Report ID: [id number] Reading Location: [id number] us Devora Madison NP IMG XR PROCEDURES Final Result * ECG 12 lead (08/28/2024 2:54 PM CDT) us Devora Madison NP ECG ORDERABLES Final Result from Last 3 Months Insurance [facility] Care Teams Shuttle Car Operator Relationship Specialty Start Date End Date Marina Barnett NP [address] [place], [place] [id number] PCP - General Internal Medicine 08/28/24
--- OUTSIDE RECORDS SUMMARY | 2024-08-31 07:24 | XMS_ITS | Encounter Summary ---
Author Organization [employer] Address [address] [place] [address] Care Team Providers Care Group Fitness Department Head Name Role Phone Gunnar Plummer MD, Abdi Murphy Primary Care Provid er Encounter Details Date Type Department Care Team (Late st Contact Info) Description 07/14/[address] [facility] ([facility]) [address] 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
--- OUTSIDE RECORDS SUMMARY | 2024-08-31 07:24 | XMS_ITS | Encounter Summary ---
Author Organization [employer] Address 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
--- OUTSIDE RECORDS SUMMARY | 2024-08-31 07:24 | XMS_ITS | Referral Summary ---
Author Organization [facility] [address] Address [address] [place] [address] Care Team Providers Care Hot Punch Press Operator Name Role Phone Marina Barnett NP Primary Care Provider +1- [phone] Encounters Date Type Department Care Team Description 08/28/2024 2:40 PM CDT Ancillary Procedure [facility] Imaging at [address] [address] Left-sided chest pain; Subacute cough 08/28/2024 2:45 PM CDT Office Visit [facility] at [address] [address] Devora Madison NP Left-sided chest [...] on file 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 KR T: Report ID: [id number] Reading Location: [id number] Procedure Note Porfirio Wilburn MD - 08/28/2024 [...] Porfirio Wilburn M.D. KR T: Report ID: [id number] Reading Location: [place] [address] us Devora Madison NP IMG XR PROCEDURES Final Result * ECG 12 lead (08/28/2024 2:54 PM CDT) us Devora Madison NP ECG ORDERABLES Final Result from Last 3 Months Insurance [facility] Care Teams Hot Punch Press Operator Relationship Specialty Start Date End Date Marina Barnett NP [address] [facility] [address] [place] [address] PCP - General Internal Medicine 08/28/24
--- OUTSIDE RECORDS SUMMARY | 2024-08-31 07:24 | XMS_ITS | Clinical Summary ---
Author Organization [facility] Address 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
--- NOTE | 2024-08-31 07:43 | ED.GENADULT ---
HPI - General Adult General Chief complaint: Chest Pain Stated complaint: CP/SOB Time Seen by Provider: 08/31/24 06:56 History of Present Illness HPI narrative: 83-year-old female return to the emergency department for evaluation for persistent symptoms. Patient was evaluated in the emergency department yesterday complaining abdominal pain and back pain. Patient was found to have a negative workup and reported she did feel improved at time of discharge. Patient states when she got home she began having lower back pain again. At time of my evaluation patient is resting comfortably in does complain some lower abdominal discomfort. Patient had previous complaint chest pain. Related Data Home Medications ?Medication ?Instructions ?Recorded ?Confirmed ?Last Taken ?Type lidocaine 5 % topical patch 1 patch topical DAILY PRN 04/08/23 03/16/24 Unknown History (Lidoderm) arthritic pain psyllium husk (with sugar) 3.4 1 tbsp PO DAILY 04/08/23 03/16/24 Unknown History gram oral powder packet (Metamucil (with sugar)) Allergies Allergy/AdvReac Type Severity Reaction Status Date / Time No Known Allergies Allergy Verified 08/31/24 04:02 Review of Systems Review of Systems: All systems reviewed & are unremarkable except as noted in HPI and below PMFSH Past Medical History Medical History Colonic polyp Diverticulosis of intestine without perforation or abscess without bleeding Colon cancer screening Gastroesophageal reflux disease Hypothyroidism Osteoarthritis of left knee Anxiety disorder, unspecified 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 Chong History of cataract extraction History of breast biopsy History of hemorrhoidectomy 2021, Dr. Thompson History of hysterectomy (2001) Family History Family History Sibling Family history of heart disease in male family member before age 55 Family history of chronic obstructive pulmonary disease Lung cancer Mother Family history of congestive heart failure Father Family history of heart disease in male family member before age 55 Family history of alcoholism, Onset Age: 47 Other Family history of Alzheimer's disease Grandparent Family history of cardiovascular disease Social History Social History Social History: Surrogate medical decision maker: Tomasa Lujan, niece. Code status: Full code. Smoking packs per day: 1 Smoking cigarettes per day: 20.0 Years smoked: 25 Smoking pack-years: 25.00 Smoking status: Former smoker Tobacco type: cigarettes Second hand tobacco smoke exposure: No Smoking end date: 04/08/92 Alcohol intake: current Drinks per week: 7 Substance use: never Substance use type: does not use Do You Feel Safe in your Home?: Yes Lack of Transportation: No Lack of Food: Never True Current Housing: I Have Housing Concerned About Future Housing: No Difficulty Paying Gas/Electric Bills: No Difficulty Paying for Meds: No Currently Unemployed: No Education: Don't Know Difficulty w/ Childcare or Family Care: No Living arrangements: with family Additional living arrangements comments: Lives in [place]. Disabled brother lives with her and she helps care for him. Additional occupation/education comments: Works part-time at [employer]. Spiritual care concerns: No Exam Narrative: APPEARANCE: Well appearing, no pain, no distress, well-nourished. HEAD: normocephalic, atraumatic. EYES: PERRLA/EOMI, conjunctivae clear. NOSE: Normal no drainage EARS:TMS clear with good light reflex. THROAT: Pharynx clear, no exudate. NECK: Supple. No adenopathy, no masses. RESPIRATORY: Airway patent, respirations nonlabored. Clear to auscultation bilaterally, no rales, rhonchi, wheezing. CARDIOVASCULAR: Regular rate and rhythm without murmurs rubs or gallops. ABDOMINAL: Soft, nontender, nondistended, normal bowel sounds MUSCULOSKELETAL: Moves all extremities. Strength/ROM intact, No edema, No calf tenderness. NEURO: Alert. Cranial nerves II through XII intact. Grossly intact SKIN: Warm, dry. Normal Color Course Vital Signs Vital signs: Vital Signs Temperature 97.4 F L 08/31/24 03:55 Pulse Rate 70 08/31/24 03:55 Respiratory Rate 20 08/31/24 03:55 Blood Pressure 133/81 08/31/24 03:55 Pulse Oximetry 95 08/31/24 03:55 Oxygen Delivery Room Air 08/31/24 03:55 Temperature 97.4 F L 08/31/24 03:55 Pulse Rate 88 08/31/24 09:12 Respiratory Rate 20 08/31/24 09:12 Blood Pressure 112/71 08/31/24 09:12 Pulse Oximetry 98 08/31/24 09:12 Oxygen Delivery Nasal Cannula 08/31/24 04:02 Oxygen Flow Rate 2 08/31/24 04:02 Medical Decision Making MDM Narrative Medical decision making narrative: 83-year-old female presents emergency department for evaluation for lower abdominal pain. Patient did have a CT scan on 08/30 which showed no significant acute abnormalities. On patient's workup today she is afebrile with no leukocytosis and hemoglobin of 13.9. Patient has an INR of 1.1. Patient does have a potassium of 3.3 but otherwise no acute abnormalities on her CMP UA does show evidence of ketones leukocyte esterase positive and white blood cells 11-20 with +1 bacteria. Patient was advised to continue her medications for constipation. Patient will be started on antibiotics for a possible underlying urinary tract infection. Differential Diagnosis Differential Diagnosis: Diverticulitis, colitis, constipation, UTI, chronic pain Vital Signs Vital Signs: Vital Signs Temperature 97.4 F L 08/31/24 03:55 Pulse Rate 70 08/31/24 03:55 Respiratory Rate 20 08/31/24 03:55 Blood Pressure 133/81 08/31/24 03:55 Pulse Oximetry 95 08/31/24 03:55 Oxygen Delivery Room Air 08/31/24 03:55 Temperature 97.4 F L 08/31/24 03:55 Pulse Rate 88 08/31/24 09:12 Respiratory Rate 20 08/31/24 09:12 Blood Pressure 112/71 08/31/24 09:12 Pulse Oximetry 98 08/31/24 09:12 Oxygen Delivery Nasal Cannula 08/31/24 04:02 Oxygen Flow Rate 2 08/31/24 04:02 Lab Data Lab results reviewed: Yes I reviewed the patient's lab results. 08/31/24 04:11 08/31/24 04:11 Labs: Lab Results 08/31/24 08/31/24 08/31/24 Range/Units 04:11 06:30 08:02 WBC 6.2 (4.5-10.0) K/mm3 RBC 4.64 (4.2-5.4) M/mm3 Hgb 13.9 (12.0-15.0) g/dL Hct 42.4 (37.0-47.0) % MCV 91.4 (80-100) fl MCH 30.0 (26-34) pg MCHC 32.8 (32-36) g/dl RDW 13.2 (11.5-14.5) % Plt Count 222 (150-375) k/mm3 MPV 9.5 (7.4-10.4) fl Immature Gran % (Auto) 0.3 (0-0.5) % Neut % (Auto) 66.9 (45.5-73.1) % Lymph % (Auto) 15.2 L (18.3-44.2) % Dubois % (Auto) 15.0 H (2.6-8.5) % Eos % (Auto) 2.1 (0-4.4) % Baso % (Auto) 0.5 (0.2-1.2) % Lymph # (Auto) 0.94 (0.9-3.2) K/mm3 Dubois # (Auto) 0.9 H (0.1-0.6) K/mm3 Eos # (Auto) 0.1 (0-0.3) K/mm3 Baso # (Auto) 0.0 (0.0-0.1) K/mm3 Abs Immat Gran (auto) 0.02 (0.00-0.031) K/mm3 Absolute Neuts (auto) 4.1 (1.3-6.7) K/mm3 Absolute Nucleated RBC 0.000 (0.0-0.012) K/mm3 Nucleated RBC % 0.0 (0.0-0.2) % PT 14.5 (11.1-14.7) Seconds INR 1.1 APTT 31.9 (22.3-36.8) Seconds Sodium 136 L (137-145) mmol/L Potassium 3.3 L (3.4-5.0) mmol/L Chloride 104 (98-107) mmol/L Carbon Dioxide 25 (22-30) mmol/L Anion Gap 7 (4-12) mmol/L BUN 13 (7-17) mg/dL Creatinine 0.84 (0.7-1.0) mg/dL Estim Creat Clear Calc 39 ml/min Estimated GFR > 60 (59 - ) Glucose 82 (65-110) mg/dL Calcium 8.6 (8.4-10.2) mg/dL Total Bilirubin 1.2 (0.2-1.3) mg/dL AST 31 (14-36) U/L ALT 20 (6-35) U/L Alkaline Phosphatase 91 (38-126) U/L Troponin I < 0.012 < 0.012 (0.000-0.034) ng/mL Total Protein 7.0 (6.3-8.2) g/dL Albumin 3.8 (3.5-5.1) g/dL Lipase 66 (23-300) U/L Urine Color Yellow (Yellow) Urine Appearance Clear (Clear) Urine pH 5.5 (5.0-9.0) Ur Specific [place] 1.037 H (1.001-1.035) Urine Protein Negative (Negative) mg/dL Urine Glucose (UA) Negative (Negative) mg/dL Urine Ketones Trace H (Negative) mg/dL Ur Blood (Man) 1+ H (Negative) Urine Nitrate Negative (Negative) Urine Bilirubin Negative (Negative) Urine Urobilinogen 0.2 (<2.0) mg/dL Leukocyte Esterase Rfl 1+ H (Negative) GEOFF/UL Urine RBC 0-2 (0-2) /hpf Urine WBC 11-20 H (0-3) /hpf Ur Squamous Epith Cells None seen (Few) /hpf Urine Bacteria 1+ H /hpf Urine Casts 3-5 Imaging Data Radiologist's impression: Impressions Chest X-Ray 08/31/24 06:35 IMPRESSION: No focal infiltrate or effusion. Discharge Plan Discharge Clinical Impression: Abdominal pain, lower, Acute UTI, Constipation Patient Disposition: Home Condition: Stable Instructions: Antibiotic Form, Constipation (DC), Urinary Tract Infection in Women (DC), Abdominal Pain (ED) Additional Instructions: Continue medications for constipation. Drink plenty of fluids. Antibiotic as directed for the urinary tract infection. Have close follow-up with your primary care physician. Patient Language: Russian Prescriptions: New cephalexin 500 mg capsule 500 mg PO Q8H 7 Days Qty: 21 0RF No Action albuterol sulfate 90 mcg/actuation HFA aerosol inhaler 1 inh INHALATION Q4H PRN (Reason: shortness of breath or wheezing) Qty: 18 2RF acetaminophen [Tylenol Arthritis Pain] 650 mg tablet extended release 650 mg PO Q8H PRN (Reason: pain) Qty: 10 0RF lidocaine [Lidoderm] 5 % adhesive patch,medicated 1 patch topical DAILY PRN (Reason: arthritic pain) Rx Instructions: leave on most painful area for up to 12 hrs. bilateral knees or back. Metamucil (with sugar) 3.4 gram powder in packet 1 tbsp PO DAILY ondansetron 4 mg tablet,disintegrating 4 mg PO Q8H PRN (Reason: nausea and vomiting) Qty: 7 0RF polyethylene glycol 3350 [Miralax] 17 gram/dose powder 17 g PO BID Qty: 238 0RF potassium chloride 10 mEq tablet extended release See Rx Instructions .ROUTE .COMPLEX Qty: 90 1RF Dose Instruction: TAKE 1 TABLET BY MOUTH EVERY DAY Rx Instructions: TAKE 1 TABLET BY MOUTH EVERY DAY omeprazole 40 mg capsule,delayed release(DR/EC) 40 mg PO DAILY Qty: 90 1RF memantine 5 mg tablet 5 mg PO BID Qty: 180 1RF bisoprolol fumarate 5 mg tablet See Rx Instructions .ROUTE .COMPLEX Qty: 90 1RF Dose Instruction: TAKE 1 TABLET BY MOUTH EVERY DAY Rx Instructions: TAKE 1 TABLET BY MOUTH EVERY DAY venlafaxine 75 mg capsule,extended release 24hr See Rx Instructions .ROUTE .COMPLEX Qty: 90 1RF Dose Instruction: TAKE 1 CAPSULE BY MOUTH EVERY DAY Rx Instructions: TAKE 1 CAPSULE BY MOUTH EVERY DAY levothyroxine 88 mcg tablet 88 mcg PO DAILY Qty: 90 1RF amlodipine 2.5 mg tablet 2.5 mg PO DAILY Qty: 90 1RF atorvastatin 40 mg tablet See Rx Instructions .ROUTE .COMPLEX Qty: 90 1RF Dose Instruction: TAKE 1 TABLET BY MOUTH EVERY DAY Rx Instructions: TAKE 1 TABLET BY MOUTH EVERY DAY losartan 100 mg tablet See Rx Instructions .ROUTE .COMPLEX Qty: 90 1RF Dose Instruction: TAKE 1 TABLET BY MOUTH EVERY DAY Rx Instructions: TAKE 1 TABLET BY MOUTH EVERY DAY fluticasone propion-salmeterol [Wixela Inhub] 500-50 mcg/dose blister with device 1 inh inhalation Q12H Qty: 60 5RF Follow-up/Referrals: Erikca,Marina Mathews, ACCOUNT EXECUTIVE [employer] [Primary Care Provider] -
[2024-08-31 08:37] LABS: Troponin I < 0.012 ng/mL (0.000-0.034)
== END 2024-08-31 09:13 | disposition home or self-care (01) ==
PROVIDERS: Student in an Organized Health Care Education/Training Program; Emergency Provider Emergency Medicine; PCP Nurse Practitioner
DX: N39.0 Urinary tract infection, site not specified (principal); K59.00 Constipation, unspecified; I10 Essential (primary) hypertension; E78.00 Pure hypercholesterolemia, unspecified; E03.9 Hypothyroidism, unspecified; M17.12 Unilateral primary osteoarthritis, left knee; K21.9 Gastro-esophageal reflux disease without esophagitis; K22.70 Barrett's esophagus without dysplasia; D45 Polycythemia vera; F41.9 Anxiety disorder, unspecified; Z86.0100 Personal history of colon polyps, unspecified; Z87.891 Personal history of nicotine dependence; Z98.49 Cataract extraction status, unspecified eye; Z90.710 Acquired absence of both cervix and uterus; Z79.899 Other long term (current) drug therapy
CPT/HCPCS: 36415; 71045; 80053; 81001; 83690; 84484; 85025; 85610; 85730; 93005; 96365; 99284; A9270; J0696

== ENCOUNTER 2024-12-08 10:40 | Outpatient (CLI) | payer OTHER, SELFPAY ==
--- NOTE | ~2024-12-08 | XR_ITS ---
XR knee RT min 4V 12/08/2024 11:09 Indication: Right knee pain Procedure: 4 views right knee Comparison: Comparison to multiple prior studies sequentially, with oldest reviewed study dated 01/05/2019. Findings: There is severe patellofemoral compartment osteoarthritis which does not appear significantly changed compared with prior study. No acute fracture, subluxation or dislocation. There is atherosclerosis. Impression: 1: Severe patellofemoral compartment osteoarthritis of the right knee, most severe in the lateral facet. Reviewed, dictated and finalized at location O. Impression: 1: Severe patellofemoral compartment osteoarthritis of the right knee, most sev ere in the lateral facet.
--- NOTE | ~2024-12-08 | XR_ITS ---
XR knee LT min 4V 12/08/2024 11:09 Indication: Left knee pain Procedure: 4 views left knee Comparison: Comparison to multiple prior studies sequentially, with oldest reviewed study dated 02/12/2023. Findings: There is severe patellofemoral compartment osteoarthritis, most advanced in the lateral facet. No acute fracture or traumatic malalignment. No significant joint effusion. Impression: 1: Severe patellofemoral compartment osteoarthritis. Reviewed, dictated and finalized at location O. Impression: 1: Severe patellofemoral compartment osteoarthritis.
--- OUTSIDE RECORDS SUMMARY | 2024-12-08 11:16 | XMS_ITS | Encounter Summary ---
Author Organization [employer] Address [address] [place] [address] Care Team Providers Care Gasser Machine Operator Name Role Phone Gunnar Plummer MD, Abdi Murphy Primary Care Provid er Encounter Details Date Type Department Care Team (Late st Contact Info) Description 07/14/[address] [facility] Support Serv. ([facility]) [address] 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
--- OUTSIDE RECORDS SUMMARY | 2024-12-08 11:16 | XMS_ITS | Encounter Summary ---
Author Organization [employer] Address 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
--- OUTSIDE RECORDS SUMMARY | 2024-12-08 11:16 | XMS_ITS | Clinical Summary ---
Author Organization [facility] Address 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
--- OUTSIDE RECORDS SUMMARY | 2024-12-08 11:16 | XMS_ITS | Clinical Summary ---
Author Organization [facility] [address] Address [address] [place] [address] Care Team Providers Care Air Surveillance Operator Name Role Phone Marina Barnett NP Primary Care Provider +1- [phone] Allergies No known active allergies Medications amLODIPine [...] mg TabletPOas directedCurrent Medication 02/14/20 16 Active losartan (COZAAR) 25 mg tablet 02/14/2016Losartan [...] face and groin. 30 g 08/31/19 Active levothyroxine (SYNTHROID) 50 mcg tablet Take 1 tablet (50 mcg total) by mouth every morning 08/01/19 Active ergocalciferol (VITAMIN D) 50,000 unit capsule Take 1 capsule (50,000 Units total) by mouth once a week 08/07/19 Active potassium chloride ER 10 mEq CR tablet Take 1 tablet/capsule (10 mEq total) by mouth daily 06/23/19 25 Active albuterol HFA (PROVENTIL HFA,VENTOLIN HFA,PROAIR HFA) 90 mcg/actuation inhaler Inhale 1 puff every 4 (four) hours as needed Active Active Problems No known active problems Social History Tobacco Use Types Packs/Day Years Used Date Smoking Tobacco: Never Assessed Comments Unknown Sex and Gender Information Value Date Recorded Sex Assigned at Not on file 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 Gender Identity Not on file Sexual [...] 3) 04/10/2016 02/14/2016 Covid-19 Vaccine (4 - 2024-2 6 season) 2024 06/02/2021, 06/12/2020, 05/22/2020 Influenza Vaccine (#1) 2024 , 03/05/2022, 06/02/2021, Additional history exists Insurance [employer] Member Subscriber Plan / Payer (Ef fective 2014-Present) Name:Sarai Padron Relation to Subscriber:Self Name:NealSarai crowder Rob Payer ID:[id number] (NAIC) Type:MEDICARE RISK OTHER Address: [place] [id number] Care Teams Air Surveillance Operator Relationship Specialty Start Date End Date Marina Barnett NP [address] [place] [address] PCP - General Internal Medicine 08/28/24
== END 2024-12-08 10:41 | disposition home or self-care (01) ==
PROVIDERS: PCP Nurse Practitioner; Visit Provider Orthopaedic Surgery
DX: M17.11 Unilateral primary osteoarthritis, right knee (principal)
CPT/HCPCS: 73564

== ENCOUNTER 2025-03-10 10:33 | Outpatient (CLI) | payer OTHER, SELFPAY ==
--- NOTE | ~2025-03-10 | CT_ITS ---
EXAMINATION: CT brain wo con DATE: 03/10/2025 11:10 INDICATION: Status post fall. TECHNIQUE: Computed tomography (CT) of the head was performed without intravenous contrast. The dose-length product was 529.67 mGy-cm. Automated exposure control and iterative reconstruction technique were employed. COMPARISON: CT dated 12/03/2023 FINDINGS: Brain parenchymal volume is decreased. There are scattered moderate periventricular and subcortical white matter changes, most likely related to small vessel ischemic disease (microangiopathy). No ventriculomegaly or midline shift. Basilar cisterns are patent. There is intracranial atherosclerosis. Basilar cisterns are patent. No acute infarction, hemorrhage, mass or mass effect. Paranasal sinuses and mastoids are unremarkable. No depressed skull fractures. There is intracranial atherosclerosis. IMPRESSION: 1. No acute intracranial abnormality. Reviewed, dictated and finalized at location I. 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
--- OUTSIDE RECORDS SUMMARY | 2025-03-10 08:20 | XMS_ITS | Encounter Summary ---
Author Organization [facility] Address [address] [place] [address] Care Team Providers Care Catering Barista Name Role Phone Marina Barnett RN PROCEDURES Primary Care Provider [phone] Reason for Referral * Imaging (Emergency) - Authorized Specialty Diagnoses / Procedures Referred By Contac t Referred To Contact RADIOLOGY Diagnoses Fall, initial encounter Hematoma of occipital region of scalp Procedures CT HEAD WO CON Marina Barnett NP [address] [facility] [address] [place] [address] Phone: tel: fax: [facility] [address] [place] [address] Phone: tel: fax: Referral ID Status Reason Start Date Expiration Date V isits Requested Visits Authorized [id number] Authorized 03/10/2025 03/11/2026 1 1 RVISOR RIVETING Reason for Visit * Reason Comments Fall Encounter Details Date Type Department Care Team (Late st Contact Info) Description 03/10/2025 8:20 AM SUPERVISOR RIVETING Office Visit [facility] [place] [address] [place] [address] Marina Barnett NP [address] [facility] [address] [place] [address] Fall Social History Tobacco Use Types Packs/Day Years Used Date Smoking Tobacco: Former Cigarettes Passive Smoke Exposure: Past Smokeless Tobacco: Never Tobacco Cessation:Counseling Given: No Alcohol Use Standard Drinks/Week Comments Yes 1.7 (1 standard drink = 0.6 oz p ure alcohol) [facility] Utilities Answer Date Recorded In the past 12 months has th e [employer], gas, oil, or water company threatened to shut off services in your home? No 09/16/2024 Humiliation, Afraid, Rape, and Kick questionnair e Answer Date Recorded Within the last year, have y ou been afraid of your partner or ex-partner? No 09/16/2024 Within the last year, have y ou been humiliated or emotionally abused in other ways by your partner or ex-partner? No Within the last year, have y ou been kicked, hit, slapped, or otherwise physically hurt by your partner or ex-partner? No 09/16/2024 Within the last year, have y ou been raped or forced to have any kind of sexual activity by your partner or ex-partner? No 09/16/2024 Overall Financial Resource Strain (CARDIA) Answe r Date Recorded How hard is it for you to pa y for the very basics like food, housing, medical care, and heating? Not hard at all 09/16/2024 PHQ-2 Answer Date Recorded Patient Health Questionnaire-2 Score 0 07/09/2024 Hunger Vital Sign Answer Date Recorded Within the past 12 months, y ou worried that your food would run out before you got the money to buy more. Never true 09/17/19 25 Within the past 12 months, t he food you bought just didn't last and you didn't have money to get more. Never true 09/16/2024 PRAPARE - Transportation Answer Date Re corded In the past 12 months, has l ack of transportation kept you from medical appointments or from getting medications? No 09/06 In the past 12 months, has l ack of transportation kept you from meetings, work, or from getting things needed for daily living? No 09/16/2024 Housing Stability Vital Sign Answer Roberto e Recorded In the last 12 months, was t here a time when you were not able to pay the mortgage or rent on time? No 09/16/2024 In the past 12 months, how m any times have you moved where you were living? 1 09/16/2024 At any time in the past 12 m [facility], were you homeless or living in a senior living (including now)? No 09/16/2024 Comments No Sex and Gender Information Value Date Recorded Sex Assigned at Female 07/09/2024 10:33 AM CDT Legal Sex Female 12:19 PM CDT Gender Identity Female 07/09/2024 10:33 AM CDT Sexual Orientation Straight 07/09/2024 10 :33 AM CDT documented as of this encounter Last Filed Vital Signs Vital Sign Reading Time Taken Comments Blood Pressure 137/85 03/10/2025 8:52 AM SUPERVISOR RIVETING Pulse 59 03/10/2025 8:52 AM SUPERVISOR RIVETING Temperature 36.6 C (97.8 F) 03/10/2025 8:52 AM SUPERVISOR RIVETING Respiratory Rate 14 03/10/2025 8:52 AM SUPERVISOR RIVETING Oxygen Saturation 97% 03/10/2025 8:52 AM SUPERVISOR RIVETING Inhaled Oxygen Concentration - - Weight 67 kg (147 lb 12.8 oz) 03/10/2025 8:52 AM SUPERVISOR RIVETING Height 152.4 cm (5') 03/10/2025 8:52 AM SUPERVISOR RIVETING Body Mass Index 28.87 03/10/2025 8:52 AM SUPERVISOR RIVETING documented in this encounter Functional Status * Are you deaf or do you have serious difficulty hearing Answer Date of Assessment Author Status No 09/16/2024 3:00 PM KALIAT Verónica Gunderson RN Active * Are you blind or do you have serious difficulty seeing, even when wearing glasses? Answer Date of Assessment Author Status No 09/16/2024 3:00 PM KALIAT Verónica Gunderson RN Active * Do you have serious difficulty walking or climbing stairs? Answer Date of Assessment Author Status Yes 09/16/2024 3:00 PM KALIAT Verónica Gunderson RN Active * Do you have difficulty dressing or bathing? Answer Date of Assessment Author Status Yes 09/16/2024 3:00 PM KALIAT Verónica Gunderson RN Active * Because of a physical, mental, or emotional condition, do you have difficulty doing errands alone such as visiting a doctor's office or shopping? Answer Date of Assessment Author Status No 09/16/2024 3:00 PM KALIAT Verónica Gunderson, RN Active documented as of this encounter Mental Status * Because of a physical, mental, or emotional condition, do you have serious difficulty concentrating, remembering, or making decisions? Answer Entry Date Author Status No 09/16/2024 3:00 PM Verónica Oh, RN Active documented in this encounter Patient Instructions * Patient Instructions* Marina Barnett NP - 03/10/2025 8:20 AM SUPERVISOR RIVETING Cephalexin antibiotic for one week for infection left arm Head CT today Lyrica refill RVISOR RIVETING RVISOR RIVETING documented in this encounter Plan of Treatment Upcoming Encounters Date Type Department Care Team (Late st Contact Info) Description 04/21/2025 1:00 PM SUPERVISOR RIVETING [facility] [place] [address] [facility] [address] [place] [address] Marina Barnett NP [address] [facility] [address] [place] [address] 04/21/2025 2:00 PM SUPERVISOR RIVETING [facility] [place] [address] [place] [address] Marina Barnett NP [address] [facility] [address] [place] [address] Scheduled Orders Name Type Priority Associated Diagnoses Orde r Schedule CT HEAD WO CON CT STAT Fall, initial encounter Hematoma of occipital region of scalp Expected: 03/10/2025, Expires: 03/10/2026 documented as of this encounter Visit Diagnoses Diagnosis Lumbar radiculopathy- Primary Thoracic or lumbosacral neuritis or radiculitis, unspecified Cellulitis of left arm Cellulitis and abscess of upper arm and forearm Fall, initial encounter Hematoma of occipital region of scalp Other constipation Postherpetic neuralgia Herpes zoster with other nervous system complications documented in this encounter Additional Health Concerns Infection Onset Date Last Indicated Resolved Time Shingles Comment:09/09/24 Susceptible HCWs should not provide direct patient care when other immune caregivers are available. Assessed patient 09/09/24 1200, Shingles does not appear disseminated as previously described, There is a track from left flank/mid back to left abdomen, crusted and dry. Therefore, per CDC receommendations, no isolation is necessary, but Susceptible HCWs should not provide direct patient care when other immune caregivers are available. 09/07/2024 09/07/2024 Assessment Noted Time PHQ-9 Depression Total Score: 4 07/10/19 3:44 PM CDT documented as of this encounter Care Teams Catering Barista Relationship Specialty Start Date End Date Marina Barnett, RN PROCEDURES [address] [place] [address] PCP - General NURSE PRACTITIONER 06/25/24 documented as of this encounter
--- OUTSIDE RECORDS SUMMARY | 2025-03-10 12:03 | XMS_ITS | Encounter Summary ---
Author Organization [employer] Address [address] [place] [address] Care Team Providers Care Claims Investigator Name Role Phone Gunnar Plummer MD, Abdi [...] on file Legal Sex Female 3:03 AM EXPERIMENTAL BOX TESTER Gender Identity Not on file Sexual Orientation Not on file documented as of this encounter Plan of Treatment Not on file documented as of this encounter Visit Diagnoses Diagnosis Submucous leiomyoma of uterus- Primary documented in this encounter Care Teams Claims Investigator Relationship Specialty Start Date End Date Abdi Maher Jr., MD [address] [place] [address] PCP - General 07/22/02 documented as of this encounter
--- OUTSIDE RECORDS SUMMARY | 2025-03-10 12:03 | XMS_ITS | Encounter Summary ---
Author Organization [facility] Address [address] [place] [address] Care Team Providers Care Barrel Dedenting Machine Operator Name Role Phone Marina Barnett PILOT PLANT OPERATOR Primary Care Provider [phone] Encounter Details Date Type Department Care Team (Latest Contact Info) Description 03/10/2025 Travel Social History Tobacco Use Types Packs/Day Years Used Date Smoking Tobacco: Former Cigarettes Passive Smoke Exposure: Past Smokeless Tobacco: Never Alcohol Use Standard Drinks/Week Comments Yes 1.7 (1 standard drink = 0.6 oz p ure alcohol) [facility] Utilities Answer Date Recorded In the past 12 months has e electric, gas, oil, or water company threatened to [...] any time in the past 12 m [facility], were you homeless or living in a intermediate (including now)? No 09/16/2024 Comments No Sex and Gender Information Value Date Recorded Sex Assigned at Female 07/09/2024 10:33 AM CDT Legal Sex Female 12:19 PM CDT Gender Identity Female 07/09/2024 10:33 AM CDT Sexual Orientation Straight 07/09/2024 10 :33 AM CDT documented as of this encounter Functional Status * Are you deaf or do you have serious difficulty hearing Answer Date of Assessment Author Status No 09/16/2024 3:00 PM CDT Verónica Gunderson RN Active * Are you blind or do you have serious difficulty seeing, even when wearing glasses? Answer Date of Assessment Author Status No 09/16/2024 3:00 PM CDT Verónica Gunderson RN Active * Do you have serious difficulty walking or climbing stairs? Answer Date of Assessment Author Status Yes 09/16/2024 3:00 PM KALIAT Verónica Gunderson RN Active * Do you have difficulty dressing or bathing? Answer Date of Assessment Author Status Yes 09/16/2024 3:00 PM Verónica Oh, KYLE Active * Because of a physical, mental, or emotional condition, do you have difficulty doing errands alone such as visiting a doctor's office or shopping? Answer Date of Assessment Author Status No 09/16/2024 3:00 PM Verónica Oh RN Active documented as of this encounter Mental Status * Because of a physical, mental, or emotional condition, do you have serious difficulty concentrating, remembering, or making decisions? Answer Entry Date Author Status No 09/16/2024 3:00 PM Verónica Oh RN Active documented in this encounter Plan of Treatment Upcoming Encounters Date Type Department Care Team (Late st Contact Info) Description 04/21/2025 1:00 PM BASTER HAND [facility] [address] [place] [address] Marina Barnett, PILOT PLANT OPERATOR [address] [facility] [address] [place] [address] 04/21/2025 2:00 PM BASTER HAND [facility] [address] [place] [address] Marina Barnett, PILOT PLANT OPERATOR [address] [facility] [address] [place] [address] documented as of this encounter Visit Diagnoses Not on filedocumented in this encounter Additional Health Concerns Infection [...] documented as of this encounter Care Teams Barrel Dedenting Machine Operator Relationship Specialty Start Date End Date Marina Barnett, PILOT PLANT OPERATOR [address] [facility] [address] [address] [place] [address] PCP - General NURSE PRACTITIONER 06/25/24 documented as of this encounter
--- OUTSIDE RECORDS SUMMARY | 2025-03-10 12:03 | XMS_ITS | Clinical Summary ---
Author Organization [facility] [address] Address [address] [place] [address] Care Team Providers Care Photo Studio Assistant Name Role Phone Marina Barnett NP Primary Care Provider [phone] Allergies No known active allergies Medications amLODIPine [...] on file Legal Sex Female 2:24 PM PREMIUM AUDITOR Gender Identity Not on file Sexual Orientation [...] (2 of 3) 04/10/2016 02/14/2016 Covid-19 Vaccine (2024-2 6 season) 2024 06/02/2021, 06/12/2020, 05/22/2020 Influenza Vaccine (#1) 2024 , 03/05/2022, 06/02/2021, Additional history exists Insurance [facility] Care Teams Photo Studio Assistant Relationship Specialty Start Date End Date Marina Barnett NP [address] [place] [address] PCP - General Internal Medicine 08/28/24
--- OUTSIDE RECORDS SUMMARY | 2025-03-10 12:03 | XMS_ITS | Clinical Summary ---
Author Organization [facility] Address [address] [place] [address] Care Team Providers Care Gi Technician Name Role Phone Marina Barnett SALES OPERATIONS CONSULTANT Primary Care Provider [phone] Allergies No known active allergies Medications potassium chloride CR (K-TAB) 10 MEQ Tab CR tablet Take 1 tablet (10 mEq total) by mouth daily. 06/23/19 25 Active bisoprolol (ZEBETA) 5 MG tablet Take 1 tablet (5 mg total) by mouth daily. Active atorvastatin (LIPITOR) 40 MG tablet Take 1 tablet (40 mg total) by mouth daily. Active memantine (NAMENDA) 5 MG tablet Take 1 tablet (5 mg total) by mouth 2 (two) times daily. 06/01/19 25 Active venlafaxine XR (EFFEXOR-XR) 75 MG 24 hr capsule Take 1 capsule (75 mg total) by mouth daily. Active vitamin D2, ergocalciferol, (DRISDOL) 1.25 mg capsuleIndicati ons:Vitamin D deficiency Take 1 capsule (50,000 Units total) by mouth every 7 days. 8 capsule 08/07/19 25 Active acetaminophen CR (TYLENOL) 650 MG Tab CR 8 hr tablet Take 1 tablet (650 mg total) by mouth every 8 (eight) hours as needed (pain). Active lidocaine (LIDODERM) 5 % Place 1 patch onto the skin daily. Remove & Discard patch within 12 hours or as directed by MD for bilateral knees or back Active clobetasol (TEMOVATE) 0.05 % creamIndication s:Postherpetic neuralgia Apply topically 2 (two) times daily as needed. 30 g 1 10/09/19 25 Active omeprazole (PRILOSEC) 40 MG capsuleIndicati ons:Gastroesoph ageal reflux disease without esophagitis TAKE 1 CAPSULE BY MOUTH 2 TIMES A DAY. INDICATIONS: GASTROESOPHAGEAL REFLUX DISEASE 180 capsule 1 10/29/19 25 Active pregabalin (LYRICA) 75 MG capsuleIndicati ons:Postherpeti c neuralgia Take 1 capsule in the morning and afternoon. Then 100mg at bedtime. 84 capsule 1 11/13/19 25 Active fluticasone-mainor meterol (ADVAIR DISKUS) 250-50 MCG/ACT inhalerIndicati ons:Moderate persistent asthma without complication (HHS/HCC) Inhale 1 puff into the lungs 2 (two) times daily. 1 each 3 11/13/19 25 Active levothyroxine (SYNTHROID) 88 MCG tabletIndicatio ns:Hypothyroidi sm, unspecified type Take 1 tablet (88 mcg total) by mouth every morning. 30 tablet 2 12/24/19 25 Active loratadine (CLARITIN) 10 MG tabletIndicatio ns:Postnasal drip Take 1 tablet (10 mg total) by mouth daily. 90 tablet 1 01/16/20 25 Active albuterol sulfate HFA 108 (90 Base) MCG/ACT inhalerIndicati ons:Postnasal drip Inhale 2 puffs into the lungs every 6 (six) hours as needed. 18 g 1 01/16/20 25 Active meloxicam (MOBIC) 7.5 MG tabletIndicatio ns:Postherpetic neuralgia,Chron ic pain of left knee TAKE 1 TABLET BY MOUTH DAILY. DO NOT COMBINE WITH OTHER NSAIDS (MOTRIN, ALEVE, IBUPROFEN) 30 tablet 2 01/18/20 25 Active cephALEXin (KEFLEX) 500 MG capsuleIndicati ons:Cellulitis of left arm Take 1 capsule (500 mg total) by mouth 3 (three) times daily for 7 days. 21 capsule 03/10/20 25 2024 Active senna-docusate (SENEXON-S) 8.6-50 MG tabletIndicatio ns:Other constipation Take 1 tablet by mouth nightly at bedtime. 90 tablet 1 03/10/20 25 Active pregabalin (LYRICA) 50 MG capsuleIndicati ons:Postherpeti c neuralgia Take 2 capsules (100 mg total) by mouth nightly. 120 capsule 1 03/10/20 Active pregabalin (LYRICA) 50 MG capsuleIndicati ons:Postherpeti c neuralgia Take 2 capsules (100 mg total) by mouth nightly. 120 capsule 1 12/24/19 25 2024 Discontin ued(Reord er) SENEXON-S 8.6-50 MG tabletIndicatio ns:Other constipation TAKE 1 TABLET BY MOUTH EVERYDAY AT BEDTIME 30 tablet 01/29/20 25 2024 Discontin ued(Reord er) zoster vaccine (SHINGRIX) (SHINGRIX) injectionIndica tions:Need for shingles vaccine Inject 0.5 mLs into the muscle once for 1 dose. 1 each 02/26/20 25 2024 SENEXON-S 8.6-50 MG tabletIndicatio ns:Other constipation TAKE 1 TABLET BY MOUTH EVERYDAY AT BEDTIME 30 tablet 02/27/20 25 2024 Discontin ued(Reord er) Active Problems Problem Noted Date Diagnosed Date Postherpetic neuralgia 10/07/2024 Infrarenal abdominal aortic aneurysm (AAA) witho ut rupture 09/25/2024 Biliary calculus of other site without obstructi on 09/25/2024 Adenoma of left adrenal gland 09/25/2024 Hiatal hernia 09/25/2024 Pulmonary nodule 09/25/2024 Physical deconditioning 09/10/2024 Vitamin D deficiency 07/31/2024 Mixed hyperlipidemia 07/09/2024 Moderate persistent asthma without complication 07/09/2024 Hypothyroidism, unspecified type 07/09/2024 Hemorrhoids, unspecified hemorrhoid type 025 Gastroesophageal reflux disease without esophagi tis 07/09/2024 Mild cognitive impairment 07/09/2024 LEANNA (generalized anxiety disorder) 07/09/2024 Primary osteoarthritis of both knees 07/09/2024 Acute bilateral low back pain without sciatica 0 07/09/2024 Monocytosis 12/19/2021 Hypertension Resolved Problems Problem Noted Date Diagnosed Date Resolved Date Pancreatic cyst 09/25/2024 01/15/2025 Acute encephalopathy 09/16/2024 025 Acute diverticulitis 08/31/2024 025 Encounters Date Type Department Care Team Description 03/10/2025 8:20 AM REHABILITATION WORKER Office Visit [facility] [address] [place] [address] Marina Barnett, SALES OPERATIONS CONSULTANT Fall 03/10/2025 Travel 02/25/2025 Telephone [facility] [address] [place] [address] Marina Barnett, SALES OPERATIONS CONSULTANT Lab Order 02/24/2025 2:15 PM REHABILITATION WORKER Office Visit [facility] Physical Therapy [address] [place] [id number] Marina Barnett, SALES OPERATIONS CONSULTANT Juliana Saravia, PT Lumbar Radiculopathy 02/24/2025 Travel 01/31/2025 Results Follow-Up [facility] [address] [place] [address] Marina Barnett, SALES OPERATIONS CONSULTANT XR LUMB SPINE 3V, XR SACRUM+COCCYX MIN 2V 01/28/2025 Travel 01/20/2025 11:20 AM CDT Office Visit [facility] [address] [place] [address] Marina Barnett, SALES OPERATIONS CONSULTANT Leg Pain 01/20/2025 Travel 01/18/2025 Results Follow-Up [facility] [address] [place] [address] Marina Barnett, SALES OPERATIONS CONSULTANT TSH W/REFLEX, RENAL FUNCTION PANEL, CBC W/DIFF AUTOMATED 01/15/2025 11:00 AM CDT Office Visit [facility] [address] [place] [address] Marina Barnett, SALES OPERATIONS CONSULTANT Results 01/15/2025 Travel 01/12/2025 [facility]phone [facility] [address] [place] [address] Marina Barnett, SALES OPERATIONS CONSULTANT Results 01/06/2025 Scan [facility] SRV[facility] Scanned, [facility] CT (SCAN) 01/05/2025 Telephone [place] [id number] [place] [address] Marina Barnett, SALES OPERATIONS CONSULTANT Information 01/04/2025 Scan [facility] SRV[facility] Scanned, [facility] CT (SCAN) 12/28/2024 10:04 AM CDT - 12/28/2024 11:59 PM CDT Hospital Encounter [facility] [address] [place] [address] Marina Barnett, SALES OPERATIONS CONSULTANT Discharge Disposition: Home or Self Care (Routine Discharge) 12/28/2024 10:03 AM CDT Hospital [facility] [address] [place] [address] Marina Barnett, SALES OPERATIONS CONSULTANT Discharge Disposition: Home or Self Care (Routine Discharge) 12/28/2024 Travel 12/25/2024 Abstract [place] [id number] [place] [address] Marina Barnett, SALES OPERATIONS CONSULTANT 12/23/2024 10:40 AM CDT [facility] [place] [id number] [place] [address] Marina Barnett, SALES OPERATIONS CONSULTANT Rash 12/23/2024 Scan [facility] Scanned, [facility] 12/23/2024 Travel 12/21/2024 [facility] [id number] [place] [address] Marina Barnett, SALES OPERATIONS CONSULTANT Error 12/10/2024 Telephone [facility] Multispecialty Care - [place] [address] [place] [address] Marina Barnett, SALES OPERATIONS CONSULTANT Advice (Nurse Triage - After Hours ([id number]) ) from Last 3 Months Immunizations Immunization Administration Dates Next Due Abrysvo Respiratory Syncytia l Virus (RSV) 0.5 mL, PF 02/25/2024 Fluad influenza vaccine, Leif drivalent (aIIV4), Inactivated, adjuvanted, preservative free, 0.5 mL,IM use 04/10/2023,06/02/2021 Fluzone High Dose (IIV, triv alent, 0.5mL) 01/20/2025,02/17/2024,01/25/2019,2017,04/21/2013 Influenza Adult (Generic) 01/14/2020 Pneumococcal (Capvaxive - PCV 21) 04/18/2024 Zoster (Zostavax) 14830 Unt/0.65Ml 12/23/2024 Family History Medical History Relation Comments Heart Disease Brother Heart Disease Father Heart Disease Mother Heart Disease Sister Relation Status Comments Brother Father Mother Sister Alive Social History Tobacco Use Types Packs/Day Years Used Date Smoking Tobacco: Former Cigarettes Passive Smoke Exposure: Past Smokeless Tobacco: Never Tobacco Cessation:Counseling Given: No Alcohol Use Standard Drinks/Week Comments Yes 1.7 (1 standard drink = 0.6 oz p ure alcohol) [facility] Utilities Answer Date Recorded In the past 12 months has e [employer]2p-labs, [employer], or water [employer] threatened to shut off services in your [...] any time in the past 12 m [facility], were you homeless or living in a usp (including now)? No 09/16/2024 Comments No Sex and Gender Information Value Date Recorded Sex Assigned at Female 07/09/2024 10:33 AM CDT Legal Sex Female 12:19 PM CDT Gender Identity Female 07/09/2024 10:33 AM CDT Sexual Orientation Straight 07/09/2024 10 :33 AM CDT Last Filed Vital Signs Vital Sign Reading Time Taken Comments Blood Pressure 137/85 03/10/2025 8:52 AM REHABILITATION WORKER Pulse 59 03/10/2025 8:52 AM REHABILITATION WORKER Temperature 36.6 C (97.8 F) 03/10/2025 8:52 AM REHABILITATION WORKER Respiratory Rate 14 03/10/2025 8:52 AM REHABILITATION WORKER Oxygen Saturation 97% 03/10/2025 8:52 AM REHABILITATION WORKER Inhaled Oxygen Concentration - - Weight 67 kg (147 lb 12.8 oz) 03/10/2025 8:52 AM REHABILITATION WORKER Height 152.4 cm (5') 03/10/2025 8:52 AM REHABILITATION WORKER Body Mass Index 28.87 03/10/2025 8:52 AM REHABILITATION WORKER Plan of Treatment Upcoming Encounters Date Type Department Care Team (Late st Contact Info) Description 04/21/2025 1:00 PM REHABILITATION WORKER Office Visit [facility] Medical [facility] Mult[facility]pec[facility]ty Care - [place] [address] [place] [address] Marina Barnett, SALES OPERATIONS CONSULTANT [address] [place] [address] 04/21/2025 2:00 PM REHABILITATION WORKER [facility] [address] [place] [address] Marina Barnett, SALES OPERATIONS CONSULTANT [address] [place] [address] Health Maintenance Due Date Last Done Comments DTaP, Tdap and Td Vaccines (1 - Tdap) 1959 Annual Medicare Wellness Visit 11/29/2007 Dexa Scan (General) 11/29/2007 COVID-19 Vaccine (5 - season) 2024 06/02/2021, 06/01/2021, 06/12/2020, Additional history exists Zoster Vaccines (2 of 3) 02/17/2025 12/23/2024 RSV Immunization or 60+ Years Completed 02/25/2024 Pneumococcal Vaccine: 50+ Years Completed 04/18/2024, 01/03/2016, 03/15/2015 PHQ-2 (Physician [place]) Completed 07/09/2024 Influenza Adult Completed 01/20/2025, 02/06, 04/10/2023, Additional history exists Hepatitis A Vaccines Aged Out No long er eligible based on patient's age to complete this topic Meningococcal B Vaccine Aged Out No l onger eligible based on patient's age to complete this topic Meningococcal Vaccine Aged Out No rita rcow eligible based on patient's age to complete this topic RSV Immunizations Under 20 Months Aged Out No longer eligible based on patient's age to complete this topic Procedures Procedure Name Priority Date/Time Associated Diagnosis Comments XR SACRUM+COCCYX MIN 2V Routine 01/28/2025 2:37 PM CDT Lumbar radiculopathy Fall, subsequent encounter XR LUMB SPINE 3V Routine 01/28/2025 2:37 PM CDT Lumbar radiculopathy Fall, subsequent encounter CBC W/DIFF AUTOMATED Routine 01/15/2025 12:02 PM CDT Abnormal CBC RENAL FUNCTION PANEL Routine 01/15/2025 12:02 PM CDT Mixed hyperlipidemia TSH W/REFLEX Routine 01/15/2025 12:02 PM CDT Hypothyroidism, unspecified type CT GENERIC 01/06/2025 CT GENERIC 01/04/2025 CT CHEST WO CON Routine 12/28/2024 11:26 AM CDT Pulmonary nodule MRI ABD WWO CON Routine 12/28/2024 11:00 AM CDT Adenoma of left adrenal gland Pancreatic cyst (HHS/HCC) from Last 3 Months Results * XR SACRUM+COCCYX MIN 2V (01/28/2025 2:37 PM CDT) Anatomical Region Laterality Modality Spine Radiographic Sandy [place] 01/29/2025 1:06 PM CDT Impressions 01/29/2025 1:32 PM CDT IMPRESSION: 1. No acute abnormality identified. 2. Degenerative changes as described. Ordered By: MARINA BARNETT Interpreted By: Roni Irwin MD, 01/29/2025 1:06 PM Narrative 01/29/2025 1:32 PM CDT [facility] - [address] [address] Examination: XR LUMB SPINE 3V, XR SACRUM+COCCYX MIN 2V Exam time: 01/28/2025 2:24 PM Clinical history: Fall. Left hip/sciatic region type pain. Comparison: 08/06/2024 lumbar spine. Technique: AP, lateral, and lumbosacral views lumbar spine. AP, axial, and lateral views sacrum/coccyx. Findings: There are 5 lumbar-type vertebra. There is no evidence of fracture or acute osseous abnormality throughout the lumbar spine. There is marked decrease intervertebral disc heights L1-2, L2-3, and L5-S1 levels with anterior vertebral body endplate spurring at each level. There is mild decrease intervertebral disc height L3-4 level. Mild facet joint degenerative change lower lumbar spine. Sacroiliac joints appear unremarkable. No findings suggestive of fracture or acute osseous abnormality throughout the sacrum or coccyx. Aortoiliac vascular atherosclerotic calcification as well as calcification left upper quadrant and splenic artery distribution. Multiple rounded calcifications right side lower pelvis which are indeterminate, although, may represent phleboliths.. Procedure Note Roni Irwin MD - 01/29/2025 [facility] - [place] [id number] Examination: XR LUMB SPINE 3V, XR SACRUM+COCCYX MIN 2V Exam time: 01/28/2025 2:24 PM Clinical history: Fall. Left hip/sciatic region type pain. Comparison: 08/06/2024 lumbar spine. Technique: AP, lateral, and lumbosacral views lumbar spine. AP, axial, andlateral views sacrum/coccyx. Findings: There are 5 lumbar-type vertebra. There is no evidence offracture or acute osseous abnormality throughout the lumbar spine. Thereis marked decrease intervertebral disc heights L1-2, L2-3, and L5-C3bzfhqq with anterior vertebral body endplate spurring at each level. Thereis mild decrease intervertebral disc height L3-4 level. Mild facet jointdegenerative change lower lumbar spine. Sacroiliac joints appear unremarkable. No findings suggestive of fracture or acute osseous abnormality throughoutthe sacrum or coccyx. Aortoiliac vascular atherosclerotic calcification as well as calcificationleft upper quadrant and splenic artery distribution. Multiple roundedcalcifications right side lower pelvis which are indeterminate, although,may represent phleboliths.. IMPRESSION: 1. No acute abnormality identified. 2. Degenerative changes as described. Ordered By: MARINA BARNETT Interpreted By: Roni Irwin MD, 01/29/2025 1:06 PM Marina Barnett SALES OPERATIONS CONSULTANT GENERAL IMAGING Final Resul t * XR LUMB SPINE 3V (01/28/2025 2:37 PM CDT) Anatomical Region Laterality Modality Spine Radiographic [place] 01/29/2025 1:06 PM CDT Impressions 01/29/2025 1:32 PM CDT IMPRESSION: 1. No acute abnormality identified. 2. Degenerative changes as described. Ordered By: MARINA BARNETT Interpreted By: Roni Irwin MD, 01/29/2025 1:06 PM Narrative 01/29/2025 1:32 PM CDT [facility] [place] [address] Examination: XR LUMB SPINE 3V, XR SACRUM+COCCYX MIN 2V Exam time: 01/28/2025 2:24 PM Clinical history: Fall. Left hip/sciatic region type pain. Comparison: 08/06/2024 lumbar spine. Technique: AP, lateral, and lumbosacral views lumbar spine. AP, axial, and lateral views sacrum/coccyx. Findings: There are 5 lumbar-type vertebra. There is no evidence of fracture or acute osseous abnormality throughout the lumbar spine. There is marked decrease intervertebral disc heights L1-2, L2-3, and L5-S1 levels with anterior vertebral body endplate spurring at each level. There is mild decrease intervertebral disc height L3-4 level. Mild facet joint degenerative change lower lumbar spine. Sacroiliac joints appear unremarkable. No findings suggestive of fracture or acute osseous abnormality throughout the sacrum or coccyx. Aortoiliac vascular atherosclerotic calcification as well as calcification left upper quadrant and splenic artery distribution. Multiple rounded calcifications right side lower pelvis which are indeterminate, although, may represent phleboliths.. Procedure Note Roni Irwin MD - 01/29/2025 [facility] Family [facility] Internal Medicine - [address] [address] Examination: XR LUMB SPINE 3V, XR SACRUM+COCCYX MIN 2V Exam time: 01/28/2025 2:24 PM Clinical history: Fall. Left hip/sciatic region type pain. Comparison: 08/06/2024 lumbar spine. Technique: AP, lateral, and lumbosacral views lumbar spine. AP, axial, andlateral views sacrum/coccyx. Findings: There are 5 lumbar-type vertebra. There is no evidence offracture or acute osseous abnormality throughout the lumbar spine. Thereis marked decrease intervertebral disc heights L1-2, L2-3, and L5-F1pkswls with anterior vertebral body endplate spurring at each level. Thereis mild decrease intervertebral disc height L3-4 level. Mild facet jointdegenerative change lower lumbar spine. Sacroiliac joints appear unremarkable. No findings suggestive of fracture or acute osseous abnormality throughoutthe sacrum or coccyx. Aortoiliac vascular atherosclerotic calcification as well as calcificationleft upper quadrant and splenic artery distribution. Multiple roundedcalcifications right side lower pelvis which are indeterminate, although,may represent phleboliths.. IMPRESSION: 1. No acute abnormality identified. 2. Degenerative changes as described. Ordered By: MARINA BARNETT Interpreted By: Roni Irwin MD, 01/29/2025 1:06 PM Marina Barnett SALES OPERATIONS CONSULTANT GENERAL IMAGING Final Resul t * TSH W/REFLEX (01/15/2025 12:02 PM CDT) TSH 1.221 0.358 - 3.740 uIU/ML 01/15/2025 7:56 PM CDT -[facility] 01/15/2025 12:0 2 PM CDT Marina Barnett NP LABORATORY Final Resul t -[facility] [address] [place] [address], * (ABNORMAL) RENAL FUNCTION PANEL (01/15/2025 12:02 PM CDT) [facility] SODIUM S/P/B 145 136 - 145 MMOL/L 01/15/2025 7:56 PM CDT MG-[facility] POTASSIUM S/P/B 3.6 3.5 - 5.1 MMOL/L 01/15/2025 7:56 PM CDT -[facility] CHLORIDE S/P/B 108(H) 98 - 107 MMOL/L 01/15/2025 7:56 PM CDT -[facility] CO2 31.2 21 - 32 MMOL/L 01/15/2025 7:56 PM CDT -[facility] GLUCOSE 118(H) 70 - 99 MG/DL 01/15/2025 7:56 PM CDT -[facility] BUN 13 7 - 18 MG/DL 01/15/2025 7:56 PM CDT -[facility] CREATININE S/P/B 0.69 0.55 - 1.02 MG/DL 01/15/2025 7:56 PM CDT -[facility] CALCIUM S/P/B 8.8 8.4 - 10.5 MG/DL 01/15/2025 7:56 PM CDT -[facility] ALBUMIN S/P/B 3.1(L) 3.4 - 5.0 G/DL 01/15/2025 7:56 PM CDT [facility] PHOSPHORUS 3.8 2.6 - 4.7 MG/DL 01/15/2025 7:56 PM CDT -[facility] ANION GAP 5.8 5 - 15 MMOL/L 01/15/2025 7:56 PM CDT -[facility] Comment:REFERENCE RANGE NOT ESTABLISHED OSMOLALITY (CALC) 301 MOSM/KG 025 7:56 PM CDT [facility] Comment:REFERENCE RANGE NOT ESTABLISHED GFR ESTIMATE 87(L) >90 ML/MIN/1. 73 M2 01/15/2025 7:56 PM CDT [facility] GFR NOTES GFR REFERENCE S: 01/15/2025 7:56 PM CDT [facility] Comment: THE ESTIMATED GFR IS CALCULATED USING THE 2020 CKD-EPI EQUATION. THE FOLLOWING CATEGORIES FOR GRADING RENAL FUNCTION ARE RECOMMENDED BY THE INTERNATIONAL SOCIETY OF NEPHROLOGY (KDIGO 2012 CLINICAL PRACTICE GUIDELINE). G1,NORMAL OR HIGH: >89 ml/min/1.73 m2 G2,MILDLY DECREASED: 60-89 ml/min/1.73 m2 G3A,MILDLY TO MODERATELY DECREASED: 45-59 ml/min/1.73 m2 G3B,MODERATELY TO SEVERELY DECREASED: 30-44 ml/min/1.73 m2 G4,SEVERELY DECREASED: 15-29 ml/min/1.73 m2 G5,KIDNEY FAILURE: <15 ml/min/1.73 m2 01/15/2025 12:0 2 PM CDT Marina Barnett NP LABORATORY Final Resul t [facility] [address] [place] [address], * (ABNORMAL) CBC W/DIFF AUTOMATED (01/15/2025 12:02 PM CDT) WBC 8.81 4.00 - 10.80 x10'3/uL 01/15/2025 7:39 PM CDT [facility] RBC 4.48 4.10 - 5.40 x10'6/uL 01/15/2025 7:39 PM CDT [facility] HGB 13.2 12.0 - 16.0 G/DL 01/15/2025 7:39 PM CDT [facility] HCT 39.8 36.0 - 47.0 % 01/15/2025 7:39 PM CDT [facility] MCV 88.8 78.0 - 100.0 FL 01/15/2025 7:39 PM CDT [facility] MCH 29.5 27.0 - 31.0 PG 01/15/2025 7:39 PM CDT [facility] MCHC 33.2 33.0 - 36.0 G/DL 01/15/2025 7:39 PM CDT [facility] RDW 13.0 11.5 - 14.5 % 01/15/2025 7:39 PM CDT [facility] PLT 228 150 - 350 x10'3/uL 01/15/2025 7:39 PM CDT [facility] MPV 11.3(H) 7.4 - 10.4 FL 01/15/2025 7:39 PM CDT [facility] DIFFERENTIAL TYPE AUTOMATED DIFFERENTIAL 01/15/2025 7:39 PM CDT [facility] NEUTROPHILS % 70.9 % 01/15/2025 7:39 PM CDT [facility] LYMPHOCYTES % 16.5 % 01/15/2025 7:39 PM CDT [facility] MONOCYTES % 8.5 % 01/15/2025 7:39 PM CDT [facility] EOSINOPHILS % 3.1 % 01/15/2025 7:39 PM CDT [facility] BASOPHILS % 0.8 % 01/15/2025 7:39 PM CDT [facility] IMMATURE GRANS % 0.2 % 01/15/2025 7:39 PM CDT [facility] ABS. NEUTROPHILS 6.25 1.60 - 8.30 x10'3/uL 01/15/2025 7:39 PM CDT [facility] ABS. LYMPHOCYTES 1.45 0.80 - 4.70 x10'3/uL 01/15/2025 7:39 PM CDT [facility] ABS. MONOCYTES 0.75 0.00 - 1.50 x10'3/uL 01/15/2025 7:39 PM CDT [facility] ABS. EOSINOPHILS 0.27 0.00 - 0.40 x10'3/uL 01/15/2025 7:39 PM CDT [facility] ABS. BASOPHILS 0.07 0.00 - 0.20 x10'3/uL 01/15/2025 7:39 PM CDT [facility] ABS. IMMATURE GRANULOCYTES 0.02 0.00 - 0.03 x10'3/uL 01/15/2025 7:39 PM CDT [facility] 01/15/2025 12:0 2 PM CDT Marina Barnett NP LABORATORY Final Resul t [facility] [address] [place] [address], * CT GENERIC (01/06/2025) Only the most recent of2 resultswithin the time period is included. Anatomical Region Laterality Modality Other 01/06/2025 [facility] Scanned SCANNING Final Resu lt * CT CHEST WO CON (12/28/2024 11:26 AM CDT) Anatomical Region Laterality Modality Chest Computed Tomogra phy 01/04/2025 7:56 PM CDT Impressions 01/04/2025 8:08 PM CDT IMPRESSION: 1. Stable 6 mm right lower lobe pulmonary nodule when compared to the prior CT dated 09/15/2024. Continued attention on follow-up is recommended to show stability. Recommend follow-up CT in 8 months to document one-year stability. Then CT 8 18-24 months per Fleischner guidelines. 2. Mild bilateral bronchial wall thickening, which can be seen with small airway infection/inflammation or reactive airway disease. 3. Extensive ovarian artery calcific atherosclerosis. 4. Small hiatal hernia. Referred By: MARINA BARNETT Interpreted By: Rhonda Brock MD, 01/04/2025 7:56 PM Narrative 01/04/2025 8:[address] PM [address] [address] PROCEDURE: CT CHEST WO CON. HISTORY: Pulmonary nodule. History of COPD. TECHNIQUE: Non-contrast helical thoracic CT was performed. A dose lowering technique was used for this procedure, which may include, but is not limited to, dose reduction technique, automated exposure control, the use of iterative reconstruction, and ALARA (As Low As Reasonably Achievable) / Image Gently techniques. COMPARISON: CT abdomen and pelvis without contrast, 09/15/2024 FINDINGS: Support Devices: None. Heart/Pericardium/Great Vessels: Cardiac size is normal. There is extensive calcific coronary artery atherosclerosis. There is no pericardial effusion. There is mild calcific aortic and branch vessel atherosclerosis. The main pulmonary artery is normal in diameter. The mid ascending thoracic aorta is ectatic measures 3.9 cm. Pleural Spaces: The pleural spaces are clear. Mediastinum/Quyen: There is no mediastinal or hilar lymph node enlargement. Small hiatal hernia. Neck Base/Chest Wall/Diaphragm/Upper Abdomen: There is no supraclavicular or axillary lymph node enlargement. There is an 8 mm hepatic lobe cyst. Limited, non-contrast imaging through the upper abdomen is within normal limits. Multilevel degenerative change is present in the spine. No aggressive osseous lesions identified Lungs/Central Airways: The trachea and central airways are clear and normal in caliber. There is bilateral dependent atelectasis. Bilateral bronchial wall thickening. There is a 6.4 mm nodule within the medial right lower lobe (series 3, image 103), unchanged. No additional pulmonary nodules are identified. Procedure Note Rhonda Brock MD - 01/04/2025 [facility] [address] [place] [address] PROCEDURE: CT CHEST WO CON. HISTORY: Pulmonary nodule. History of COPD. TECHNIQUE: Non-contrast helical thoracic CT was performed. A dose lowering technique was used for this procedure, which may include,but is not limited to, dose reduction technique, automated exposurecontrol, the use of iterative reconstruction, and ALARA (As Low AsReasonably Achievable) / Image Gently techniques. COMPARISON: CT abdomen and pelvis without contrast, 09/15/2024 FINDINGS: Support Devices: None. Heart/Pericardium/Great Vessels: Cardiac size is normal. There is extensive calcific coronary artery atherosclerosis. There is no pericardial effusion. There is mild calcific aortic and branch vessel atherosclerosis. The main pulmonary artery is normal in diameter. The mid ascendingthoracic aorta is ectatic measures 3.9 cm. Pleural Spaces: The pleural spaces are clear. Mediastinum/Quyen: There is no mediastinal or hilar lymph nodeenlargement. Small hiatal hernia. Neck Base/Chest Wall/Diaphragm/Upper Abdomen: There is no supraclavicularor axillary lymph node enlargement. There is an 8 mm hepatic lobe cyst.Limited, non-contrast imaging through the upper abdomen is within normallimits. Multilevel degenerative change is present in the spine. Noaggressive osseous lesions identified Lungs/Central Airways: The trachea and central airways are clear andnormal in caliber. There is bilateral dependent atelectasis. Bilateralbronchial wall thickening. There is a 6.4 mm nodule within the medialright lower lobe (series 3, image 103), unchanged. No additionalpulmonary nodules are identified. IMPRESSION: 1. Stable 6 mm right lower lobe pulmonary nodule when compared to theprior CT dated 09/15/2024. Continued attention on follow-up is recommendedto show stability. Recommend follow-up CT in 8 months to documentone-year stability. Then CT 8 18- 24 months per Fleischner guidelines. 2. Mild bilateral bronchial wall thickening, which can be seen with smallairway infection/inflammation or reactive airway disease. 3. Extensive ovarian artery calcific atherosclerosis. 4. Small hiatal hernia. Referred By: MARINA BARNETT Interpreted By: Rhonda Brock MD, 01/04/2025 7:56 PM us Marina Barnett SALES OPERATIONS CONSULTANT CT Final Resul t * MRI ABD WWO CON (12/28/2024 11:00 AM CDT) Anatomical Region Laterality Modality Abdomen Magnetic Resonan ce 01/06/2025 2:34 PM CDT Impressions 01/06/2025 3:45 PM CDT Impression: 1. A 2.3 cm simple hepatic cyst is identified within the left lobe of the liver. 2. A few small subcentimeter splenic hemangiomas are noted. 3. Slight thickening of the left adrenal gland measuring 1.2 cm, with loss of signal on out of phase imaging. This is favored to represent a small adrenal adenoma. 4. No pancreatic abnormalities seen on this exam. 5. 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 Ordered By: MARINA BARNETT Interpreted By: Ramin Casillas MD, 01/06/2025 2:34 PM Narrative 01/06/2025 3:45 PM CDT [place] [id number] Examination: MR abdomen without and with contrast. Clinical Information: PANCREATIC, LIVER AND ADRENAL CYST Comparison: CT 09/15/2024 and 08/31/2024. Technique: Sequences: Multiplanar, multisequence MR images of the abdomen and pelvis were obtained before and after the administration of 13 mL of dotarem. Findings: LIVER: Morphology: Normal. Hepatic steatosis: Absent. Iron overload: Absent. Focal liver lesion(s): A 2.3 cm cyst is identified within the left lobe of the liver (series 5001 image 20). This finding demonstrates no internal enhancement and is consistent with a simple hepatic cyst. Hepatic vasculature: Hepatic and portal veins are normally patent. GALLBLADDER AND BILIARY TREE: Small stones are present within the gallbladder. No evidence of cholecystitis. No evidence of biliary dilation or obstruction. PANCREAS: The pancreas demonstrates no distinct abnormalities on this exam. No focal pancreatic cystic lesions are noted. No pancreatic ductal dilatation. SPLEEN: The spleen is normal in size and contour. A few small subcentimeter splenic hemangiomas are noted. ADRENAL GLANDS: The right adrenal gland appears normal. There is slight thickening of the left adrenal gland measuring approximately 1.2 cm, with loss of signal on out of phase imaging. KIDNEYS: The kidneys enhance symmetrically and demonstrate no distinct solid mass or hydronephrosis. Multiple small cortically-based T2 hyperintense cysts are noted, favored simple cysts. No specific follow-up imaging is required per consensus guidelines. GASTROINTESTINAL: Imaged large and small bowel are normal in caliber and wall thickness. FREE FLUID: None. 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 LYMPH NODES: No abdominal retroperitoneal or mesenteric lymphadenopathy. LOWER CHEST: Heart is normal in size. The lung bases are clear. No pleural or pericardial effusions. BONES: No suspicious osseous lesions. Procedure Note Ramin Casillas MD - 01/06/2025 [place] [id number] Examination: MR abdomen without and with contrast. Clinical Information: PANCREATIC, LIVER AND ADRENAL CYST Comparison: CT 09/15/2024 and 08/31/2024. Technique: Sequences: Multiplanar, multisequence MR images of the abdomen and pelviswere obtained before and after the administration of 13 mL of dotarem. Findings: LIVER: Morphology: Normal. Hepatic steatosis: Absent. Iron overload: Absent. Focal liver lesion(s): A 2.3 cm cyst is identified within the left lobe ofthe liver (series 5001 image 20). This finding demonstrates no internalenhancement and is consistent with a simple hepatic cyst. Hepatic vasculature: Hepatic and portal veins are normally patent. GALLBLADDER AND BILIARY TREE: Small stones are present within thegallbladder. No evidence of cholecystitis. No evidence of biliary dilationor obstruction. PANCREAS: The pancreas demonstrates no distinct abnormalities on thisexam. No focal pancreatic cystic lesions are noted. No pancreatic ductaldilatation. SPLEEN: The spleen is normal in size and contour. A few smallsubcentimeter splenic hemangiomas are noted. ADRENAL GLANDS: The right adrenal gland appears normal. There is slightthickening of the left adrenal gland measuring approximately 1.2 cm, withloss of signal on out of phase imaging. KIDNEYS: The kidneys enhance symmetrically and demonstrate no distinctsolid mass or hydronephrosis. Multiple small cortically-based [id number] cysts are noted, favored simple cysts. No specific follow-upimaging is required per consensus guidelines. GASTROINTESTINAL: Imaged large and small bowel are normal in caliber andwall thickness. FREE FLUID: None. VASCULATURE: Redemonstrated ectasia of the infrarenal abdominal aortameasuring approximately 2.5 cm on this exam. LYMPH NODES: No abdominal retroperitoneal or mesenteric lymphadenopathy. LOWER CHEST: Heart is normal in size. The lung bases are clear. No pleuralor pericardial effusions. BONES: No suspicious osseous lesions. Impression: 1. A 2.3 cm simple hepatic cyst is identified within the left lobe of theliver. 2. A few small subcentimeter splenic hemangiomas are noted. 3. Slight thickening of the left adrenal gland measuring 1.2 cm, withloss of signal on out of phase imaging. This is favored to represent asmall adrenal adenoma. 4. No pancreatic abnormalities seen on this exam. 5. 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 Ordered By: MARINA BARNETT Interpreted By: Ramin Casillas MD, 01/06/2025 2:34 PM us Marina Barnett SALES OPERATIONS CONSULTANT MRI Final Resul t from Last 3 Months Additional Health Concerns Infection Onset Date Last Indicated Shingles Comment:09/09/24 Susceptible HCWs should not provide [...] other immune caregivers are available. 09/07/2024 09/07/2024 Insurance [employer] Advance Directives * Full Code (Latest Code Status on File) Date Activated Date Inactivated Comments 09/16/2024 12:46 PM 09/18/2024 3:25 PM * Full Code Date Activated Date Inactivated Comments 09/04/2024 7:31 PM 09/16/2024 12:45 PM * Full Code Date Activated Date Inactivated Comments 08/31/2024 4:46 PM 09/04/2024 6:56 PM Care Teams Gi Technician Relationship Specialty Start Date End Date Marina Barnett, SALES OPERATIONS CONSULTANT [address] [place] [address] PCP - General NURSE PRACTITIONER 06/25/24
--- OUTSIDE RECORDS SUMMARY | 2025-03-10 12:03 | XMS_ITS | Encounter Summary ---
Author Organization [employer] Address [address] [place] [address] Care Team Providers Care Motorcycle Mechanic Name Role Phone Gunnar Plummer MD, Abdi Murphy Primary Care Provid er Encounter Details Date Type Department Care Team (Late st Contact Info) Description 07/14/[address] [address] 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
--- OUTSIDE RECORDS SUMMARY | 2025-03-10 12:03 | XMS_ITS | Clinical Summary ---
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
== END 2025-03-10 10:34 | disposition home or self-care (01) ==
PROVIDERS: PCP Nurse Practitioner; Visit Provider Nurse Practitioner
DX: S00.03XA Contusion of scalp, initial encounter (principal); X58.XXXA Exposure to other specified factors, initial encounter
CPT/HCPCS: 70450